=== PATIENT | female | born 1955 | race Two or more races ===

== ENCOUNTER 2018-01-26 16:24 | Emergency (ER) | payer MEDICAID ==
[~2018-01-26] VITALS: Ht 154.9 cm; Wt 68.0 kg
[~2018-01-26 16:24] MED LIST: CLIN1CAP4 PO; FER325T PO; LISI-646 PO; SACC250C PO
[2018-01-26] MEDS ORDERED: LIDOCAINE 1% HCL (LOCAL ANESTH.) INJ 20ML MDV ID ONE (19:15)
[2018-01-26] MEDS ORDERED: TRIAMCINOLONE 40MG/ML 1ML VIAL IM ONE (19:15)
[2018-01-26] MEDS ORDERED: HYDROcodone-ACET 10/325MG TAB PO ONE (19:45)
[2018-01-26 20:00] VITALS: BP 146/81
== END 2018-01-26 20:06 | disposition home or self-care (01) ==
LOC: ER 16:36
DX: M54.2 Cervicalgia (principal); M79.1 Myalgia; I10 Essential (primary) hypertension; I25.2 Old myocardial infarction; F17.210 Nicotine dependence, cigarettes, uncomplicated; Z86.73 Personal history of transient ischemic attack (TIA), and cerebral infarction without residual deficits; Z90.49 Acquired absence of other specified parts of digestive tract; Z90.710 Acquired absence of both cervix and uterus; Z88.2 Allergy status to sulfonamides; Z79.899 Other long term (current) drug therapy
CPT/HCPCS: 96372; 99283; J2001; J3301

== ENCOUNTER 2018-01-31 09:45 | Emergency (ER) | payer MEDICAID ==
[~2018-01-31] VITALS: Ht 154.9 cm; Wt 61.2 kg
[2018-01-31 09:54] VITALS: BP 192/97
[2018-01-31] MEDS ORDERED: IBUPROFEN 800 MG TAB PO ONE (10:45)
[2018-01-31] MEDS ORDERED: LIDOCAINE 1% (LOCAL ANESTH.) PF 5ml SDV ONE (10:47)
[2018-01-31] MEDS ORDERED: TETANUS-DIPTH-ACEL PERTUSSIS 0.5ML SYRG IM ONE (11:00)
[2018-01-31] MEDS ORDERED: NEOMYCIN-BACITRACIN-POLYM UNITDOSE PKG TOP OINT TOP ONE (11:15)
== END 2018-01-31 12:27 | disposition home or self-care (01) ==
LOC: ER 09:47
DX: S61.512A Laceration without foreign body of left wrist, initial encounter (principal); W05.0XXA Fall from non-moving wheelchair, initial encounter; Y93.89 Activity, other specified; Y92.89 Other specified places as the place of occurrence of the external cause; Y99.8 Other external cause status
CPT/HCPCS: 12001; 73100; 90471; 90715

== ENCOUNTER 2018-02-14 14:39 | Emergency (ER) | payer MEDICAID ==
[~2018-02-14] VITALS: Ht 152.4 cm; Wt 49.9 kg
[2018-02-14 15:20] VITALS: BP 178/86
== END 2018-02-14 16:08 | disposition home or self-care (01) ==
LOC: ER 14:42
DX: S61.512D Laceration without foreign body of left wrist, subsequent encounter (principal); I10 Essential (primary) hypertension; F17.210 Nicotine dependence, cigarettes, uncomplicated; Z88.2 Allergy status to sulfonamides; Z79.899 Other long term (current) drug therapy; Z90.49 Acquired absence of other specified parts of digestive tract; X58.XXXD Exposure to other specified factors, subsequent encounter

== ENCOUNTER 2018-04-26 21:27 | Emergency (ER) | payer MEDICAID ==
[~2018-04-26] VITALS: Ht 154.9 cm; Wt 49.9 kg
[2018-04-26 22:44] LABS: Basophils # (auto) 0 uL; Basophils % (auto) 0.6 % (0.0-2.0); Eosinophils # (auto) 0.5 uL; Hematocrit 28.8 % (36.0-46.0); Hemoglobin 9.3 g/dL (12.2-16.2); Lymphocytes % (auto) 15.4 % (10.0-50.0); Mean Corpuscular Hemoglobin 27.1 pg (28.0-32.0); Mean Corpuscular Hgb Conc. 32.3 g/dL (32.0-36.0); Mean Corpuscular Volume 83.9 fL (80.0-100.0); Monocytes # (auto) 0.5 uL; Monocytes % (auto) 8.2 % (0.0-12.0); Neutrophils # (auto) 4.5 uL; Neutrophils % (auto) 68.8 % (37.0-80.0); Platelet Count (auto) 322 10^3/uL (140-450); Red Blood Cells 3.43 10^6/uL (4.0-5.20); Red Cell Distribution Width 15.5 % (11.8-14.3); White Blood Cell 6.5 10^3/uL (4.4-10.8)
[2018-04-26 22:50] LABS: Albumin 2.5 g/dL (3.4-5.0); BUN/Creatinine Ratio 20.6; Calcium 8.5 mg/dL (8.5-10.1); Potassium 3.5 mmol/L (3.5-5.1)
[2018-04-26 22:59] LABS: Bilirubin, Total 0.3 mg/dL (0.2-1.0); Total Protein 7.5 g/dL (6.4-8.2)
[2018-04-27] MEDS ORDERED: methylPREDNISolone SOD SUCC 125 MG/2 ML VL IM ONE (00:15)
[2018-04-27] MEDS ORDERED: MORPHINE SULFATE 4 MG/ML SYR/VIAL IM ONE (00:15)
[2018-04-27] MEDS ORDERED: ONDANSETRON HCL 4 MG/2 ML VIAL IM ONE (00:15)
[2018-04-27 00:56] VITALS: BP 189/125
== END 2018-04-27 09:42 | disposition home or self-care (01) ==
LOC: ER 21:30
DX: L30.9 Dermatitis, unspecified (principal); M19.90 Unspecified osteoarthritis, unspecified site; I10 Essential (primary) hypertension; F17.210 Nicotine dependence, cigarettes, uncomplicated; Z90.49 Acquired absence of other specified parts of digestive tract; Z88.2 Allergy status to sulfonamides; Z79.899 Other long term (current) drug therapy; Z90.710 Acquired absence of both cervix and uterus
CPT/HCPCS: 36415; 80053; 83880; 85025; 96372; 99284; J2270; J2405; J2930

== ENCOUNTER 2018-08-10 22:04 | Emergency (ER) | payer MEDICAID ==
[~2018-08-10] VITALS: Ht 152.4 cm; Wt 49.9 kg
[2018-08-10 22:25] VITALS: BP 152/63
[2018-08-10 23:10] LABS: Basophils # (auto) 0 uL; Basophils % (auto) 0.5 % (0.0-2.0); Eosinophils # (auto) 0.2 uL; Mean Corpuscular Hemoglobin 21.4 pg (28.0-32.0); Monocytes # (auto) 0.6 uL; Neutrophils # (auto) 7.4 uL
[2018-08-10 23:12] LABS: Eosinophils % (auto) 1.9 % (0.0-7.0); Hematocrit 23.4 % (36.0-46.0); Hemoglobin 7.1 g/dL (12.2-16.2); Lymphocytes # (auto) 1.2 uL; Lymphocytes % (auto) 13.1 % (10.0-50.0); Mean Corpuscular Hgb Conc. 30.4 g/dL (32.0-36.0); Mean Corpuscular Volume 70.5 fL (80.0-100.0); Monocytes % (auto) 6.5 % (0.0-12.0); Nucleated Red Blood Cells % 0.1 %; Platelet Count (auto) 405 10^3/uL (140-450); Red Blood Cells 3.32 10^6/uL (4.0-5.20); Red Cell Distribution Width 18.6 % (11.8-14.3); White Blood Cell 9.4 10^3/uL (4.4-10.8)
[2018-08-10 23:25] LABS: INR 0.99 (0.9-1.15); Partial Thromboplastin Time 30.6 sec (23.78-33.04); Prothrombin Time 10.6 sec (9.27-12.13)
[2018-08-10 23:28] LABS: Alanine Aminotransferase 7 U/L (13-56); Albumin 2.3 g/dL (3.4-5.0); Anion Gap 9 (5-15); Aspartate Aminotransferase 6 U/L (15-37); BUN/Creatinine Ratio 15.3; Blood Urea Nitrogen 15 mg/dL (7-18); Calcium 8.1 mg/dL (8.5-10.1); Carbon Dioxide 24 mmol/L (21-32); Chloride 106 mmol/L (98-107); GFR African American 73 mL/min; GFR Non-African American 61 mL/min; Glucose 123 mg/dL (74-106); Magnesium 2.2 mg/dL (1.6-2.6); Potassium 3.3 mmol/L (3.5-5.1); Sodium 139 mmol/L (136-145)
[2018-08-10 23:32] LABS: Alkaline Phosphatase 139 U/L (45-117); Bilirubin, Total 0.2 mg/dL (0.2-1.0); Total Protein 8.2 g/dL (6.4-8.2)
== END 2018-08-11 06:20 | disposition left against medical advice (07) ==
LOC: ER 22:16
DX: R07.9 Chest pain, unspecified (principal); M54.9 Dorsalgia, unspecified; Z53.21 Procedure and treatment not carried out due to patient leaving prior to being seen by health care provider
CPT/HCPCS: 36415; 71045; 80053; 83735; 83880; 84443; 84484; 85025; 85610; 85730; 93005

== ENCOUNTER 2019-01-17 21:40 | Emergency (ER) | payer MEDICAID ==
[~2019-01-17] VITALS: Ht 152.4 cm; Wt 49.9 kg
[~2019-01-17 21:40] MED LIST changes: -CLIN1CAP4 PO; +CLIN300C8 PO; +DOCU100C8 PO; +LEVO500T21 PO; +PANT40T PO; -SACC250C PO
[2019-01-17] MEDS ORDERED: cloNIDine HCL 0.1 MG TAB ONE (22:20)
[2019-01-17] MEDS ORDERED: cloNIDine HCL 0.1 MG TAB PO ONE (22:30)
[2019-01-18 01:02] VITALS: BP 145/55
== END 2019-01-18 02:57 | disposition left against medical advice (07) ==
LOC: ER 21:43
DX: M25.531 Pain in right wrist (principal); M79.631 Pain in right forearm; Z53.21 Procedure and treatment not carried out due to patient leaving prior to being seen by health care provider; W01.0XXA Fall on same level from slipping, tripping and stumbling without subsequent striking against object, initial encounter; Y93.89 Activity, other specified; Y92.89 Other specified places as the place of occurrence of the external cause; Y99.8 Other external cause status
CPT/HCPCS: 73090; 73110; 73130

== ENCOUNTER 2019-02-02 22:03 | Emergency (ER) | payer MEDICAID ==
[~2019-02-02] VITALS: Ht 152.4 cm; Wt 49.9 kg
[2019-02-02] MEDS ORDERED: cloNIDine HCL 0.1 MG TAB ONE (22:55)
[2019-02-02] MEDS ORDERED: cloNIDine HCL 0.1 MG TAB PO ONE (23:00)
[2019-02-03 03:14] VITALS: BP 114/52
[2019-02-07] MEDS ORDERED: CHOL20007 PO (00:23)
[2019-02-07] MEDS ORDERED: ASPIPOW PO (00:23)
[2019-02-07] MEDS ORDERED: CYA100I PO (00:23)
[2019-02-07] MEDS ORDERED: IBUP800T24 PO (00:23)
[2019-02-08] MEDS ORDERED: NITR0.4S29 SL (14:29)
[2019-02-08] MEDS ORDERED: DOCU-94 PO (14:29)
[2019-02-08] MEDS ORDERED: HYDR-4833 PO (14:29)
[2019-02-08] MEDS ORDERED: LISI10TA6 PO (14:29)
== END 2019-02-03 05:05 | disposition home or self-care (01) ==
LOC: ER 22:03
DX: S06.0X0A Concussion without loss of consciousness, initial encounter (principal); S16.1XXA Strain of muscle, fascia and tendon at neck level, initial encounter; I10 Essential (primary) hypertension; I25.2 Old myocardial infarction; Z86.73 Personal history of transient ischemic attack (TIA), and cerebral infarction without residual deficits; Z90.49 Acquired absence of other specified parts of digestive tract; Z90.710 Acquired absence of both cervix and uterus; F17.210 Nicotine dependence, cigarettes, uncomplicated; Z88.2 Allergy status to sulfonamides; Z79.2 Long term (current) use of antibiotics; Z79.899 Other long term (current) drug therapy; W05.0XXA Fall from non-moving wheelchair, initial encounter; Y93.89 Activity, other specified; Y92.89 Other specified places as the place of occurrence of the external cause; Y99.8 Other external cause status
CPT/HCPCS: 70450; 72125

== ENCOUNTER → 2019-03-15 | Outpatient (CLI) | payer MEDICAID ==
[~2019-03-15] MED LIST changes: +AML5T PO; +CHOL20007 PO; -CLIN300C8 PO; +CYA100I PO; +DOCU-94 PO; -DOCU100C8 PO; -FER325T PO; +HYDR-4833 PO; +IBUP800T24 PO; -LEVO500T21 PO; +NITR0.4S29 SL; -PANT40T PO
== END | disposition home or self-care (01) ==
LOC: Rad HDHVI 10:28
PROVIDERS: ATTEND Internal Medicine
DX: I25.10 Atherosclerotic heart disease of native coronary artery without angina pectoris (principal); I25.2 Old myocardial infarction
CPT/HCPCS: 93306

== ENCOUNTER → 2019-03-29 | Outpatient (CLI) | payer MEDICAID ==
[~2019-03-29] VITALS: Ht 152.4 cm; Wt 43.5 kg
[~2019-03-29] MED LIST changes: +ADENOSINE 37 MG in GIVE UN-DILUTED 0 ML IV ONE; +ADENOSINE 90 MG/30 ML INJ IV ONE; +cloNIDine HCL 0.1 MG TAB ONE
== END | disposition home or self-care (01) ==
LOC: Rad HDHVI 08:28
PROVIDERS: ATTEND Internal Medicine
DX: I25.10 Atherosclerotic heart disease of native coronary artery without angina pectoris (principal); R07.89 Other chest pain; M20.5X9 Other deformities of toe(s) (acquired), unspecified foot; I25.2 Old myocardial infarction; K29.70 Gastritis, unspecified, without bleeding; M19.90 Unspecified osteoarthritis, unspecified site
CPT/HCPCS: 78452; 93005; 96374; 96375; A9500; J0153

== ENCOUNTER 2020-01-23 14:14 | Emergency (ER) | payer MEDICARE, MEDICAID ==
[~2020-01-23] VITALS: Ht 152.4 cm; Wt 41.7 kg
[~2020-01-23 14:14] MED LIST changes: -ADENOSINE 37 MG in GIVE UN-DILUTED 0 ML IV ONE; -ADENOSINE 90 MG/30 ML INJ IV ONE; -cloNIDine HCL 0.1 MG TAB ONE
[2020-01-23 14:49] LABS: Basophils # (auto) 0.1 10 ^3/uL (0-0.2); Eosinophils # (auto) 0.4 10 ^3/uL (0-0.8); Lymphocytes # (auto) 1.3 10 ^3/uL (0.4-5.4); Monocytes # (auto) 0.3 10 ^3/uL (0-1.3)
[2020-01-23 14:51] LABS: Basophils % (auto) 1.4 % (0.0-2.0); Eosinophils % (auto) 7.8 % (0.0-7.0); Hemoglobin 8.5 g/dL (12.2-16.2); Lymphocytes % (auto) 26.8 % (10.0-50.0); Mean Corpuscular Hemoglobin 25.1 pg (28.0-32.0); Mean Corpuscular Hgb Conc. 31.5 g/dL (32.0-36.0); Mean Corpuscular Volume 79.6 fL (80.0-100.0); Monocytes % (auto) 6.5 % (0.0-12.0); Neutrophils # (auto) 2.9 10 ^3/uL (1.6-8.6); Neutrophils % (auto) 57.5 % (37.0-80.0); Platelet Count (auto) 332 10^3/uL (140-450); Red Cell Distribution Width 18.4 % (11.8-14.3)
[2020-01-23 15:07] LABS: Albumin 2.9 g/dL (3.4-5.0); Anion Gap 3 (5-15); BUN/Creatinine Ratio 14.1; Blood Urea Nitrogen 12 mg/dL (7-18); Calcium 8.4 mg/dL (8.5-10.1); Carbon Dioxide 26 mmol/L (21-32); Chloride 111 mmol/L (98-107); GFR African American 86 mL/min; GFR Non-African American 71 mL/min; Glucose 111 mg/dL (74-106); Potassium 3.8 mmol/L (3.5-5.1); Sodium 140 mmol/L (136-145)
[2020-01-23 15:12] LABS: Alanine Aminotransferase 14 U/L (13-56); Alkaline Phosphatase 94 U/L (45-117); Aspartate Aminotransferase 7 U/L (15-37); Bilirubin, Total 0.3 mg/dL (0.2-1.0)
[2020-01-23 16:15] VITALS: BP 130/60
== END 2020-01-23 16:36 | disposition home or self-care (01) ==
LOC: ER 14:14
DX: G45.9 Transient cerebral ischemic attack, unspecified (principal); E44.0 Moderate protein-calorie malnutrition; F12.90 Cannabis use, unspecified, uncomplicated; D64.9 Anemia, unspecified; M19.90 Unspecified osteoarthritis, unspecified site; I10 Essential (primary) hypertension; I25.2 Old myocardial infarction; F17.210 Nicotine dependence, cigarettes, uncomplicated
CPT/HCPCS: 36415; 70450; 80053; 84484; 85025

== ENCOUNTER 2020-09-24 20:28 | Emergency (ER) | payer MEDICARE, MEDICAID ==
[~2020-09-24] VITALS: Ht 152.4 cm; Wt 41.7 kg
[~2020-09-24 20:28] MED LIST changes: -IBUP800T24 PO; +IBUP800T27 PO; -LISI-646 PO; +LISI20TA28 PO
[2020-09-25 00:20] VITALS: BP 145/63
[2020-09-25] MEDS ORDERED: ACETAMINOPHEN/CODEINE#3 (300/30mg) TAB PO ONE (00:45)
== END 2020-09-25 01:01 | disposition home or self-care (01) ==
LOC: ER 20:33
DX: S93.401A Sprain of unspecified ligament of right ankle, initial encounter (principal); F17.210 Nicotine dependence, cigarettes, uncomplicated; F12.10 Cannabis abuse, uncomplicated; M19.90 Unspecified osteoarthritis, unspecified site; I10 Essential (primary) hypertension; I25.2 Old myocardial infarction; Z86.2 Personal history of diseases of the blood and blood-forming organs and certain disorders involving the immune mechanism; Z86.73 Personal history of transient ischemic attack (TIA), and cerebral infarction without residual deficits; M79.7 Fibromyalgia; Z79.899 Other long term (current) drug therapy; Z88.2 Allergy status to sulfonamides; W18.09XA Striking against other object with subsequent fall, initial encounter; Y93.01 Activity, walking, marching and hiking; Y92.89 Other specified places as the place of occurrence of the external cause; Y99.8 Other external cause status
CPT/HCPCS: 73610; 73630

== ENCOUNTER 2023-05-08 04:53 | Inpatient (IN) | payer OTHER, MEDICAID ==
[~2023-05-08] VITALS: Ht 152.4 cm; Wt 59.2 kg
[~2023-05-08 04:53] MED LIST changes: +IBUP-1456 PO; -IBUP800T27 PO; -LISI20TA28 PO; +LISI20TA56 PO
[2023-05-08 05:35] VITALS: PULSE 80; RESP 17; O2SAT 97
[2023-05-08 07:09] LABS: Basophils # (auto) 0 10 ^3/uL (0-0.2); Basophils % (auto) 0.3 % (0.0-2.0); Eosinophils # (auto) 0.5 10 ^3/uL (0-0.8); Eosinophils % (auto) 8.3 % (0.0-7.0); Hemoglobin 11.8 g/dL (12.2-16.2); Lymphocytes # (auto) 0.7 10 ^3/uL (0.4-5.4); Lymphocytes % (auto) 11.5 % (10.0-50.0); Mean Corpuscular Hemoglobin 30.5 pg (28.0-32.0); Mean Corpuscular Volume 98.4 fL (80.0-100.0); Monocytes # (auto) 0.4 10 ^3/uL (0-1.3); Monocytes % (auto) 6.3 % (0.0-12.0); Neutrophils # (auto) 4.7 10 ^3/uL (1.6-8.6); Neutrophils % (auto) 73.6 % (37.0-80.0); Nucleated Red Blood Cells % 0.1 %; Red Blood Cells 3.87 10^6/uL (4.0-5.20); Red Cell Distribution Width 14.8 % (11.8-14.3); White Blood Cell 6.4 10^3/uL (4.4-10.8)
[2023-05-08 07:28] LABS: Albumin 3.6 g/dL (3.2-4.8); Alkaline Phosphatase 135 U/L (46-116); Anion Gap 7 (5-15); Aspartate Aminotransferase 14 U/L (13-40); BUN/Creatinine Ratio 14.3 (10.0-20.0); Bilirubin, Total 0.2 mg/dL (0.2-1.0); Blood Urea Nitrogen 11 mg/dL (9-23); Calcium 8.5 mg/dL (8.7-10.4); Carbon Dioxide 21 mmol/L (20-30); Chloride 113 mmol/L (98-107); Glucose 112 mg/dL (74-106); Potassium 4.2 mmol/L (3.5-5.1); Sodium 141 mmol/L (136-145); Total Protein 6.7 g/dL (5.7-8.2)
[2023-05-08 07:45] LABS: Alanine Aminotransferase < 9 U/L (7-40)
[2023-05-08] MEDS ORDERED: MORPHINE SULFATE INJ 2 MG/ml SYRG IV ONE ×2 (10:30→15:45)
[2023-05-08] MEDS ORDERED: ONDANSETRON HCL 4 MG/2 ML VIAL IV ONE ×2 (10:30→15:45)
[2023-05-08] MEDS ORDERED: IOHEXOL 300 MG/ML 100ML BOTTLE IJ ONE ×2 (11:49→13:46)
[2023-05-08 19:40] VITALS: PULSE 79; RESP 18; O2SAT 94
[2023-05-08] MEDS ORDERED: ACETAMINOPHEN 325 MG TAB PO PRN (20:45)
[2023-05-08] MEDS: SODIUM CHLOR 0.9% PF (SALINE LOCK) 10ML VIAL/SYR IV SCH (22:07)
[2023-05-08] MEDS ORDERED: diphenhdrAMINE HCL 12.5 MG/5 ML UD PO ONE (22:30)
[2023-05-08] MEDS: MORPHINE SULFATE INJ 2 MG/ml SYRG IV PRN (23:09)
[2023-05-08] MEDS: ONDANSETRON HCL 4 MG/2 ML VIAL IV PRN (23:11)
[2023-05-08] MEDS ORDERED: MORPHINE SULFATE INJ 2 MG/ml SYRG IV PRN (23:15)
[2023-05-08] MEDS ORDERED: NITROGLYCERIN 0.4 MG SL TAB SL PRN (23:15)
[2023-05-09] MEDS: SODIUM CHLOR 0.9% PF (SALINE LOCK) 10ML VIAL/SYR IV SCH ×3 (06:17→23:04)
[2023-05-09 06:23] LABS: Basophils # (auto) 0 10 ^3/uL (0-0.2); Basophils % (auto) 0.7 % (0.0-2.0); Eosinophils # (auto) 0.8 10 ^3/uL (0-0.8); Eosinophils % (auto) 14.5 % (0.0-7.0); Hematocrit 34.9 % (36.0-46.0); Hemoglobin 11.8 g/dL (12.2-16.2); Lymphocytes # (auto) 1.1 10 ^3/uL (0.4-5.4); Lymphocytes % (auto) 19.3 % (10.0-50.0); Mean Corpuscular Hemoglobin 31.3 pg (28.0-32.0); Mean Corpuscular Hgb Conc. 33.7 g/dL (32.0-36.0); Mean Corpuscular Volume 92.8 fL (80.0-100.0); Monocytes # (auto) 0.5 10 ^3/uL (0-1.3); Monocytes % (auto) 9.2 % (0.0-12.0); Neutrophils # (auto) 3.3 10 ^3/uL (1.6-8.6); Neutrophils % (auto) 56.3 % (37.0-80.0); Red Blood Cells 3.77 10^6/uL (4.0-5.20); White Blood Cell 5.9 10^3/uL (4.4-10.8)
[2023-05-09 06:37] LABS: Albumin 3.6 g/dL (3.2-4.8); Alkaline Phosphatase 131 U/L (46-116); Anion Gap 5 (5-15); Aspartate Aminotransferase 12 U/L (13-40); BUN/Creatinine Ratio 12.5 (10.0-20.0); Blood Urea Nitrogen 11 mg/dL (9-23); Calcium 8.8 mg/dL (8.7-10.4); Carbon Dioxide 26 mmol/L (20-30); Chloride 110 mmol/L (98-107); Glucose 97 mg/dL (74-106); Potassium 4.1 mmol/L (3.5-5.1); Sodium 141 mmol/L (136-145)
[2023-05-09 06:38] LABS: Bilirubin, Total 0.4 mg/dL (0.2-1.0); Total Protein 6.6 g/dL (5.7-8.2)
[2023-05-09 07:02] LABS: Alanine Aminotransferase < 9 U/L (7-40)
[2023-05-09 08:35] VITALS: PULSE 56; RESP 10; O2SAT 98
[2023-05-09] MEDS ORDERED: amLODIPine BESYLATE 5 MG TAB PO SCH (10:00)
[2023-05-09] MEDS: MORPHINE SULFATE INJ 2 MG/ml SYRG IV PRN ×3 (11:10→20:43)
[2023-05-09] MEDS ORDERED: methylPREDNISolone SOD SUCC 125 MG/2 ML VL IV ONE (12:30)
[2023-05-09 19:20] VITALS: PULSE 82; RESP 14; O2SAT 97
[2023-05-09] MEDS: ONDANSETRON HCL 4 MG/2 ML VIAL IV PRN (20:43)
[2023-05-09 21:45] VITALS: PULSE 71
[2023-05-09] MEDS: TRIAMCINOLONE ACET 0.1% TOPICAL CREAM 15GM TOP SCH (22:00)
[2023-05-09 22:50] VITALS: BP 123/61; PULSE 70; RESP 16; TEMP 97.4; O2SAT 96
[2023-05-09] MEDS: HYDROcodone-ACET 5/325MG TAB PO PRN (23:11)
[2023-05-09 23:24] VITALS: BP 123/61; PULSE 70; RESP 16; TEMP 97.4; O2SAT 96
[2023-05-10] VITALS (7 sets, daily range): BP systolic 120–155; BP diastolic 45–75; PULSE 65–103; RESP 15–18; TEMP 98–98.4; O2SAT 92–98
[2023-05-10] MEDS: diphenhdrAMINE HCL 50 MG/1 ML VL IV PRN ×3 (00:59→21:36)
[2023-05-10] MEDS ORDERED: ENOXAPARIN SOD 40 MG/0.4 ML SYRINGE SC ONE (01:15)
[2023-05-10] MEDS ORDERED: MELATONIN 5 MG TAB ONE (01:27)
[2023-05-10] MEDS: SODIUM CHLOR 0.9% PF (SALINE LOCK) 10ML VIAL/SYR IV SCH ×3 (06:09→21:36)
[2023-05-10] MEDS: TRIAMCINOLONE ACET 0.1% TOPICAL CREAM 15GM TOP SCH ×2 (10:00→21:23)
[2023-05-10] MEDS ORDERED: ENOXAPARIN SOD 40 MG/0.4 ML SYRINGE SC SCH (10:00)
[2023-05-10] MEDS: NIFEdipine ER 30 MG TAB PO SCH (10:07)
[2023-05-10] MEDS: LISINOPRIL 10 MG TAB PO SCH (10:07)
[2023-05-10] MEDS: MORPHINE SULFATE INJ 2 MG/ml SYRG IV PRN ×2 (10:08→18:16)
[2023-05-10] MEDS: hydrALAZINE HCL 20 MG/ML VL IV PRN (14:01)
[2023-05-10] MEDS: HYDROcodone-ACET 5/325MG TAB PO PRN (21:22)
[2023-05-10] MEDS: ENOXAPARIN SOD 40 MG/0.4 ML SYRINGE SC SCH (21:23)
[2023-05-10] MEDS ORDERED: MELATONIN 5 MG TAB PO ONE (22:00)
[2023-05-11] VITALS (7 sets, daily range): BP systolic 137–155; BP diastolic 43–74; PULSE 68–97; RESP 17–21; TEMP 97.6–97.9; O2SAT 97–99
[2023-05-11] MEDS: SODIUM CHLOR 0.9% PF (SALINE LOCK) 10ML VIAL/SYR IV SCH ×3 (06:08→21:58)
[2023-05-11 08:07] LABS: AFP Serum Tumor Marker 2.9 ng/mL (0.0-9.2); Cancer Antigen (CA) 125 10.8 U/mL (0.0-38.1)
[2023-05-11] MEDS: HYDROcodone-ACET 5/325MG TAB PO PRN (10:03)
[2023-05-11] MEDS: NIFEdipine ER 30 MG TAB PO SCH (10:03)
[2023-05-11] MEDS: LISINOPRIL 10 MG TAB PO SCH (10:04)
[2023-05-11] MEDS: TRIAMCINOLONE ACET 0.1% TOPICAL CREAM 15GM TOP SCH ×2 (10:04→22:00)
[2023-05-11] MEDS ORDERED: GADOTERATE MEG 10 MMOL/20ml INJ (0.5MMOL/ml) IV ONE (13:30)
[2023-05-11] MEDS: MORPHINE SULFATE INJ 2 MG/ml SYRG IV PRN ×2 (17:25→21:59)
[2023-05-11] MEDS: ENOXAPARIN SOD 40 MG/0.4 ML SYRINGE SC SCH (22:00)
[2023-05-12] VITALS (7 sets, daily range): BP systolic 113–151; BP diastolic 47–107; PULSE 68–88; RESP 16–20; TEMP 97.6–98.4; O2SAT 96–98
[2023-05-12] MEDS: HYDROcodone-ACET 5/325MG TAB PO PRN ×4 (00:15→23:29)
[2023-05-12] MEDS: diphenhdrAMINE HCL 50 MG/1 ML VL IV PRN (01:13)
[2023-05-12] MEDS: MORPHINE SULFATE INJ 2 MG/ml SYRG IV PRN (05:48)
[2023-05-12] MEDS: SODIUM CHLOR 0.9% PF (SALINE LOCK) 10ML VIAL/SYR IV SCH ×3 (05:49→21:45)
[2023-05-12] MEDS: NIFEdipine ER 30 MG TAB PO SCH (09:03)
[2023-05-12] MEDS: LISINOPRIL 10 MG TAB PO SCH (09:03)
[2023-05-12] MEDS: TRIAMCINOLONE ACET 0.1% TOPICAL CREAM 15GM TOP SCH ×2 (10:00→21:45)
[2023-05-12] MEDS ORDERED: DOCUSATE SOD 100 MG CAP PO ONE (21:15)
[2023-05-12] MEDS ORDERED: TEMAZEPAM 15 MG CAP PO ONE (21:15)
[2023-05-12] MEDS: ENOXAPARIN SOD 40 MG/0.4 ML SYRINGE SC SCH (21:45)
[2023-05-13] VITALS (7 sets, daily range): BP systolic 126–162; BP diastolic 51–72; PULSE 65–81; RESP 16–19; TEMP 97.8–98.9; O2SAT 94–98
[2023-05-13] MEDS: SODIUM CHLOR 0.9% PF (SALINE LOCK) 10ML VIAL/SYR IV SCH ×3 (06:13→22:15)
[2023-05-13] MEDS: HYDROcodone-ACET 5/325MG TAB PO PRN ×4 (06:13→19:45)
[2023-05-13] MEDS: LISINOPRIL 10 MG TAB PO SCH (10:30)
[2023-05-13] MEDS: NIFEdipine ER 30 MG TAB PO SCH (10:30)
[2023-05-13] MEDS: TRIAMCINOLONE ACET 0.1% TOPICAL CREAM 15GM TOP SCH ×2 (10:36→22:14)
[2023-05-13] MEDS: ENOXAPARIN SOD 40 MG/0.4 ML SYRINGE SC SCH (22:00)
[2023-05-13] MEDS: diphenhdrAMINE HCL 50 MG/1 ML VL IV PRN (22:10)
[2023-05-13] MEDS: DOCUSATE SOD 100 MG CAP PO PRN (22:14)
[2023-05-14] VITALS (7 sets, daily range): BP systolic 148–181; BP diastolic 50–67; PULSE 65–93; RESP 18–19; TEMP 97.5–98.2; O2SAT 93–100
[2023-05-14] MEDS: HYDROcodone-ACET 5/325MG TAB PO PRN ×3 (00:21→09:53)
[2023-05-14] MEDS: hydrALAZINE HCL 20 MG/ML VL IV PRN (04:41)
[2023-05-14] MEDS: SODIUM CHLOR 0.9% PF (SALINE LOCK) 10ML VIAL/SYR IV SCH ×3 (07:33→22:23)
[2023-05-14] MEDS: NIFEdipine ER 30 MG TAB PO SCH (09:53)
[2023-05-14] MEDS: TRIAMCINOLONE ACET 0.1% TOPICAL CREAM 15GM TOP SCH ×2 (09:55→22:24)
[2023-05-14] MEDS: LISINOPRIL 10 MG TAB PO SCH (09:55)
[2023-05-14] MEDS ORDERED: HYDR-4902 PO (10:28)
[2023-05-14] MEDS: DOCUSATE SOD 100 MG CAP PO PRN (18:15)
[2023-05-14] MEDS: ENOXAPARIN SOD 40 MG/0.4 ML SYRINGE SC SCH (22:00)
[2023-05-15 05:00] VITALS: BP 149/67; PULSE 111; RESP 18; TEMP 99.2; O2SAT 96
[2023-05-15] MEDS: SODIUM CHLOR 0.9% PF (SALINE LOCK) 10ML VIAL/SYR IV SCH (05:18)
[2023-05-15 07:30] VITALS: BP 151/55; TEMP 37.3
[2023-05-15 09:00] VITALS: BP 156/74; PULSE 91; RESP 18; TEMP 98.7; O2SAT 96
[2023-05-15] MEDS: NIFEdipine ER 30 MG TAB PO SCH (10:42)
[2023-05-15] MEDS: TRIAMCINOLONE ACET 0.1% TOPICAL CREAM 15GM TOP SCH (10:43)
[2023-05-15] MEDS: LISINOPRIL 10 MG TAB PO SCH (10:43)
[2023-05-15] MEDS ORDERED: HYDR5CRE3 PR (13:13)
== END 2023-05-15 13:30 | disposition home or self-care (01) | DRG 948 ==
LOC: ER 04:53 → TELE 23:16 → TELE-CENTR 05-09 21:33 → CENTRAL 05-12 14:11
PROVIDERS: ADMIT Nurse Practitioner Family; ATTEND Internal Medicine
DX: G89.3 Neoplasm related pain (acute) (chronic) (principal); K43.9 Ventral hernia without obstruction or gangrene; K80.20 Calculus of gallbladder without cholecystitis without obstruction; K62.89 Other specified diseases of anus and rectum; K76.0 Fatty (change of) liver, not elsewhere classified; K44.9 Diaphragmatic hernia without obstruction or gangrene; I10 Essential (primary) hypertension; D64.9 Anemia, unspecified; M06.9 Rheumatoid arthritis, unspecified; L40.9 Psoriasis, unspecified; Z80.3 Family history of malignant neoplasm of breast; Z82.49 Family history of ischemic heart disease and other diseases of the circulatory system; Z82.5 Family history of asthma and other chronic lower respiratory diseases; Z83.3 Family history of diabetes mellitus; Z85.038 Personal history of other malignant neoplasm of large intestine; Z86.73 Personal history of transient ischemic attack (TIA), and cerebral infarction without residual deficits; Z87.19 Personal history of other diseases of the digestive system; Z88.2 Allergy status to sulfonamides; Z90.710 Acquired absence of both cervix and uterus; Z87.891 Personal history of nicotine dependence; Z80.0 Family history of malignant neoplasm of digestive organs; I25.2 Old myocardial infarction
CPT/HCPCS: 36415; 73723; 74177; 80053; 82105; 82378; 85025; 86301; 86304; 87081; 96374; 96375; 96376; G0378; J2405

== ENCOUNTER 2024-08-04 10:11 | Inpatient (IN) | payer MEDICARE, MEDICAID ==
[~2024-08-04] VITALS: Ht 152.4 cm; Wt 54.0 kg
[~2024-08-04 10:11] MED LIST changes: -CHOL20007 PO; -DOCU-94 PO; +HYDR-4902 PO; +HYDR5CRE3 PR; -IBUP-1456 PO
--- NOTE | 2024-08-04 10:33 | ED.PDOC ---
History of Present Illness HPI Comments 69 y/o F, with history of anemia, arthritis, HTN, MS, TIA, psoriasis, and right leg stent, [place], presents with c/o right leg pain for 4 months, today. Patient is a poor historian and endorses on pain being constant following a stent placement in her right leg 4 months ago. Patient has not no reported recent injuries or other additional relevant and pertinent information at time of assessment. She denies having any numbness, tingling, weakness, shortness of breath, chest pain, or other associated symptoms or modifiers at this time. Chief Complaint: Lower Extremity Time Seen by MD: 10:20 Primary Care Provider: UNKNOWN Reviewed Notes: Nurses Notes, Blind Hanger Notes, Medications, Allergies Allergies: Coded Allergies: Sulfa Antibiotics (Verified Allergy, Unknown, 08/10/18) Home Meds Active Scripts Hydrocortisone (Rectal) (Procto-Med Hc) 2.5 % Cre, 2.5 % UT Q6HPRN PRN, #28 GRAMS 5 Refills Prov:SCOTTIE AMAYA MD 05/15/23 Hydrocodone-Acetaminophen (Hydrocodone Bitartrate/AC 5-325 mg) 1 Tab Tab, 1 TAB PO Q4HP PRN, #30 TAB Prov:SCOTTIE AMAYA MD 05/14/23 Amlodipine Besylate (NORVASC TABLET) 5 Mg Tb, 10 MG PO DAILY, #30 Prov:NADIYA REICH MD 02/10/19 Lisinopril (Lisinopril) 20 Mg Tab, 1 TAB PO DAILY, #30 TAB 5 Refills Prov:NADIYA REICH MD 02/10/19 Reported Medications Nitroglycerin (Nitrostat) 0.4 Mg Sub, 0.4 MG SL 02/08/19 Hydrocodone-Acetaminophen ([place] 5/325MG) 1 Tab Tb, 1 TAB PO Q6HR, #60 TAB 02/08/19 Vitamin B12 (Vitamin B-12) 1,000 Mcg/1 Ml Ij, 1 TAB PO DAILY 02/07/19 Information Source: Patient, Emergency Med Personnel Mode of Arrival: EMS Severity: Moderate Timing: Months Duration: Since onset Prehospital treatment: None Past Medical History PAST MEDICAL HISTORY: Anemia, Arthritis, HTN, MS, TIA Past Medical History (Other): colon polyps, psoriasis Surgical History: Appendectomy, BTL, , Hernia Repair, Hysterectomy Surgical History (Other): RIGHT LEG STENT, rectal mass resection ICE CREAM CHEF History: No Pertinent ICE CREAM CHEF History Family History Family History: Unknown Social History Smoker: Cigarettes, Less Than 1 Pack/Day Alcohol: Denies ETOH Use Drugs: Marijuana Lives In: Home Constitutional: denies: chills, diaphoresis, fatigue, fever, malaise, sweats, weakness, others EENTM: denies: blurred vision, double vision, ear bleeding, ear discharge, ear drainage, ear pain, ear ringing, eye pain, eye redness, hearing loss, mouth pain, mouth swelling, nasal discharge, nose bleeding, nose congestion, nose pain, photophobia, tearing, throat pain, throat swelling, voice changes, others Respiratory: denies: cough, hemoptysis, orthopnea, SOB at rest, shortness of breath, SOB with excertion, stridor, wheezing, others Cardiovascular: denies: chest pain, dizzy spells, diaphoresis, Dyspnea on exertion, edema, irregular heart beat, left arm pain, lightheadedness, palpitations, PND, syncope, others Gastrointestinal: denies: abdomen distended, abdominal pain, blood streaked bowels, constipated, diarrhea, dysphagia, difficulty swallowing, hematemesis, melena, nausea, poor appetite, poor fluid intake, rectal bleeding, rectal pain, vomiting, others Genitourinary: denies: abnormal vagina bleeding, burning, dyspareunia, dysuria, flank pain, frequency, hematuria, incontinence, pain, , vagina discharge, urgency, others Neurological: denies: dizziness, fainting, headache, left sided numbness, left sided weakness, numbness, paresthesia, pre-existing deficit, right sided n umbness, right sided weakness, seizure, speech problems, tingling, tremors, weakness, others Musculoskeletal: reports: others (right thigh pain ); denies: back pain, gout, joint pain, joint swelling, muscle pain, muscle stiffness, neck pain Integumetry: reports: rash; denies: bruises, change in color, change in hair/nails, dryness, laceration, lesions, lumps, wounds, others Allergic/Immunocompromised: denies: Difficulty Healing, Frequent Infections, Hives, Itching, others Hematologic/Lymphatic: denies: anemia, blood clots, easy bleeding, easy bruising, swollen glands, others Endocrine: denies: excessive hunger, excessive sweating, excessive thirst, excessive urination, flushing, intolerance to cold, intolerance to heat, unexplained weight gain, unexplained weight loss, others Psychiatric: denies: anxiety, bipolar disorder, depression, hopeless, panic disorder, schizophrenia, sleepless, suicidal, others All Other Systems: Reviewed and Negative (negative unless otherwise stated above or in HPI) Physical Exam General Appearance: No Apparent Distress, Normal HEENT: Normal ENT Inspection, Pharynx Normal, TMs Normal Neck: Full Range of Motion, Non-Tender, Normal, Normal Inspection Respiratory: Chest Non-Tender, Lungs Clear, No Accessory Muscle Use, No Respiratory Distress, Normal Breath Sounds Cardiovascular: No Edema, No JVD, No Murmur, No Gallop, Normal Peripheral Pulses, Regular Rate/Rhythm Breast Exam: Deferred Gastrointestinal: No Organomegaly, Non Tender, No Pulsatile Mass, Normal Bowel Sounds, Soft, Other (guaiac positive) Genitalia: Deferred Pelvic: Deferred Rectal: Deferred Extremities: No calf tenderness, Normal capillary refill, Normal inspection, Normal range of motion, No pedal edema, Tender (right anterior thigh ) Musculoskeletal : Apperance: Normal Neurologic: Alert, 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 no redness, no swelling, no discharge), Warm Lymphatic: No Adenopathy Was a procedure done? Was a procedure done?: No Differential Dx Considerations may include: cellulitis, post-op complication, DDD, dermatitis, musculoskeletal, DVT, claudication, PAD, neuropathy GIB, malignancy, marrow failure, sequestration related anemia X-Ray, Labs, Meds, VS Vital Signs Date Time Temp Pulse Resp B/P (MAP) Pulse Ox O2 Delivery O2 Flow Rate FiO2 08/04/24 10:19 97.9 90 20 171/84 (113) 96 Lab Test 08/04/24 10:44 Range/Units White Blood Count 4.0 L 4.4-10.8 10^3/uL Red Blood Count 2.99 L 4.0-5.20 10^6/uL Hemoglobin 6.9 *L 12.2-16.2 g/dL Hematocrit 22.3 L 36.0-46.0 % Mean Corpuscular Volume 74.4 L 80.0-100.0 fL Mean Corpuscular Hemoglobin 23.1 L 28.0-32.0 pg Mean Corpuscular Hemoglobin Concent 31.0 L 32.0-36.0 g/dL Red Cell Distribution Width 18.3 H 11.8-14.3 % Platelet Count 390 140-450 10^3/uL Mean Platelet Volume 8.8 6.9-10.8 fL Neutrophils (%) (Auto) 37.0-80.0 % Lymphocytes (%) (Auto) 10.0-50.0 % Monocytes (%) (Auto) 0.0-12.0 % Eosinophils (%) (Auto) 0.0-7.0 % Basophils (%) (Auto) 0.0-2.0 % Neutrophils # (Auto) 1.6-8.6 10 ^3/uL Lymphocytes # (Auto) 0.4-5.4 10 ^3/uL Monocytes # (Auto) 0-1.3 10 ^3/uL Differential Total Cells Counted 100.0 100 Neutrophils % (Manual) 67 37.0-80.0 Band Neutrophils % (Manual) 0 Lymphocytes % (Manual) 22 10.0-50.0 Monocytes % (Manual) 2 0-12 Eosinophils % (Manual) 9 H 0-7 Basophils % (Manual) 0 0.0-2.0 Metamyelocytes % (manual) 0 Myelocytes % (Manual) 0 Promyelocytes % (Manual) 0 Blast Cells % (Manual) 0 Reactive Lymphocytes 0 Platelet Estimate Adequate Hypochromasia (manual) Slight Anisocytosis (manual) Slight Microcytosis Slight Ovalocytes Few Sodium Level 138 136-145 mmol/L Potassium Level 4.1 3.5-5.1 mmol/L Chloride Level 110 H 98-107 mmol/L Carbon Dioxide Level 23 20-31 mmol/L Anion Gap 5 5-15 Blood Urea Nitrogen 19 9-23 mg/dL Creatinine 0.77 0.550-1.02 mg/dL Glomerular Filtration Rate Calc 83 >90 mL/min BUN/Creatinine Ratio 24.7 H 10.0-20.0 Serum Glucose 106 74-106 mg/dL Calcium Level 9.2 8.7-10.4 mg/dL Time of 1ST Reevaluation: 10:50 Reevaluation 1ST: Unchanged Patient Education/Counseling: Diagnosis, Treatment, Prognosis, Need For Follow Up Family Education/Counseling: No Family Present Additional Information Reviewed previous visits on 05/08/2023 and 09/24/20. Also reviewed hospital admission discharge summary on 05/15/23. Ordered the following: Ultrasound of the right lower extremity, BNP, CBC Additional information provided by: EMS Reviewed the following imaging reports and concur with findings: Ultrasound of the right lower extremity pt is severely anemic, with a history of colon polyps or rectal mass. pt is guaiac positive. she will be admitted for transfusion and further workups. pt also has evidence of advanced PAD, with claudication. the anemia likely contribute to the worsening of symptoms. Departure 1 Departure Time of Disposition: 13:04 Impression: Primary Impression: PAD (peripheral artery disease) Additional Impressions: Claudication LGI bleed Anemia Qualified Codes: D50.9 - Iron deficiency anemia, unspecified Psoriasis Disposition: ADMITTED INPATIENT Admit to: Med Surg Condition: Serious Critical Care Note Critical Care Time?: Yes (55 min-critical care time only) Critical care comment: due to concerns for deterioration of patient's condition, the care required my highest level of attention and readiness. i assessed the patient's condition, reviewed relavent documents, communicated with medical personnel, ordered the proper tests and treatments, reassessed for results and response to treatments, spoke to family and consultants and formulated a plan of care Stability Stability form required: No Heart Score Heart Score: Heart Score Response (Comments) Value History N/A 0 EKG N/A 0 Age N/A 0 Risk Factors N/A 0 Troponin N/A 0 Total 0 I personally scribed for DESHAWN VEE MD ([email or web address]) on 08/04/24 at 10:33. Electronically submitted by Prasanna Maloney ([email or web address]). I personally scribed for DESHAWN VEE MD ([email or web address]) on 08/04/24 at 10:41. Electronically submitted by Prasanna Maloney ([email or web address]). DESHAWN VEE MD Aug 04, 2024 10:33
[2024-08-04 11:04] LABS: Potassium 4.1 mmol/L (3.5-5.1); Sodium 138 mmol/L (136-145)
[2024-08-04 11:05] LABS: Anion Gap 5 (5-15); Calcium 9.2 mg/dL (8.7-10.4); Carbon Dioxide 23 mmol/L (20-31); Chloride 110 mmol/L (98-107)
[2024-08-04 11:10] LABS: BUN/Creatinine Ratio 24.7 (10.0-20.0); Blood Urea Nitrogen 19 mg/dL (9-23); Glucose 106 mg/dL (74-106)
--- NOTE | 2024-08-04 11:32 | DVH ---
Right Lower Extremity Arterial Duplex Clinical History: R/O ARTERIAL OCCLUSION Comparison: None Technique: Duplex Doppler evaluation including color Doppler and spectral/pulsed waveform analysis of the lower extremity arteries was performed. 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 IMPRESSION: Greater than 75% stenosis of the right mid superficial femoral artery based on peak systolic velocity criteria. Nonvisualization of flow in the right posterior tibial artery. REFERENCE VALUES, [facility] ([facility]) vascular Imaging Lab Criteria: Peak systolic velocity ranges (in cm/sec) are as follows: <150 cm/s - <20 % stenosis 150-200 cm/s - 20-49% stenosis 200-300 cm/s - 50-75% stenosis >300 cm/s -> 75% stenosis
[2024-08-04 11:48] LABS: Hematocrit 22.3 % (36.0-46.0); Mean Corpuscular Hemoglobin 23.1 pg (28.0-32.0); Mean Corpuscular Volume 74.4 fL (80.0-100.0)
[2024-08-04 11:50] LABS: Platelet Count (auto) 390 10^3/uL (140-450); Red Blood Cells 2.99 10^6/uL (4.0-5.20); Red Cell Distribution Width 18.3 % (11.8-14.3)
[2024-08-04 11:56] LABS: Hemoglobin 6.9 g/dL (12.2-16.2)
[2024-08-04 11:57] LABS: Band Neutrophils % (manual) 0; Basophils % (manual) 0 (0.0-2.0); Blast Cells 0; Metamyelocytes % 0; Myelocytes % 0; Promyelocytes % 0; Reactive Lymphocytes 0
[2024-08-04 12:18] LABS: Anisocytosis Slight; Eosinophils % (manual) 9 (0-7); Hypochromia Slight; Lymphocytes % (manual) 22 (10.0-50.0); Monocytes % (manual) 2 (0-12)
[2024-08-04 12:19] LABS: Ovalocytes FEW; Platelet Estimate Adequate
[2024-08-04] MEDS ORDERED: ONDANSETRON HCL 4 MG/2 ML VIAL IV PRN (14:45)
[2024-08-04] MEDS ORDERED: ACETAMINOPHEN 325 MG TAB PO PRN (14:45)
--- NOTE | 2024-08-04 15:17 | DVHHP2 ---
History of Present Illness Reason for Visit: Right leg pain History of Present Illness Natalia Paez is a 69-year-old female with past medical history of hypertension, anemia, arthritis, psoriasis, [place], TIA, right leg stent, appendectomy, bilateral tubal ligation, , hernia repair, hysterectomy, rectal mass resection in [place], and colon polyp removal who presents to the ED with right leg pain x4 months. Patient reports that the pain is 10/10 throbbing and constant starts from her knee and radiates up to her right femoral area. Upon examination patient has hands and feet are contracted also her carranza appears to have abrasions however patient states his from her psoriasis. Patient denies any abdominal pain, chest pain, shortness of breath, fever, chills, lightheadedness and weakness. 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: TIA Heme/Onc: Anemia NOS Past Medical History Arthritis Right leg stent Psoriasis Past Surgical History: Appendectomy, , Hysterectomy, Hernia Repair, Other (Rectal mass sectioning mi and colon polyp removal), Tubal Ligation Smoke: <1 pack per day Drugs: Marijuana Domestic Violence: Neg Review of Systems Constitutional: No: Fever, Chills, Sweats, Weakness, Malaise, Other Eyes: No: Pain, Vision change, Conjunctivae inflammation, Eyelid inflammation, Other, Redness ENT: No: Ear pain, Ear discharge, Nose pain, Nose discharge, Nose congestion, Mouth pain, Mouth swelling, Throat pain, Throat swelling, Other Respiratory: No: Cough, Dry, Shortness of breath, SOB with excertion, Wheezing, Hemoptysis, Pleuritic Pain, Sputum, Wheezing, Other Cardiovascular: No: Chest Pain, Palpitations, Orthopnea, Paroxysmal Noc. Dyspnea, Edema, Lt Headedness, Other Gastrointestinal: No: Nausea, Vomiting, Abdominal Pain, Diarrhea, Constipation, Melena, Hematochezia, Other Genitourinary: No Dysuria, No Frequency, No Incontinence, No Hematuria, No Retention, No Other Musculoskeletal: leg pain; No: other, neck pain, shoulder pain, arm pain, back pain, hand pain, foot pain Skin: Rash Neurological: No: Weakness, Numbness, Incoordination, Change in speech, Confusion, Seizures, Other Allergies: Coded Allergies: Sulfa Antibiotics (Verified Allergy, Unknown, 08/10/18) Exam Vital Signs Vital Signs Date Time Temp Pulse Resp B/P (MAP) Pulse Ox O2 Delivery O2 Flow Rate FiO2 08/04/24 10:19 97.9 90 20 171/84 (113) 96 General Appearance: Alert, Oriented X3, Cooperative HEENT: Atraumatic, PERRLA, EOMI, Mucous membr. moist/pink Respiratory: Normal air movement Cardiovascular: Normal S1, Normal S2, No murmurs Abdominal: Normal bowel sounds, Soft, No tenderness, No hepatospenomegaly, No masses Extremities: No edema Neuro: Normal speech, Sensation intact Psych/Mental Status: Mental status NL, Mood NL Labs/Xrays Labs Test 08/04/24 10:44 Range/Units White Blood Count 4.0 L 4.4-10.8 10^3/uL Red Blood Count 2.99 L 4.0-5.20 10^6/uL Hemoglobin 6.9 *L 12.2-16.2 g/dL Hematocrit 22.3 L 36.0-46.0 % Mean Corpuscular Volume 74.4 L 80.0-100.0 fL Mean Corpuscular Hemoglobin 23.1 L 28.0-32.0 pg Mean Corpuscular Hemoglobin Concent 31.0 L 32.0-36.0 g/dL Red Cell Distribution Width 18.3 H 11.8-14.3 % Platelet Count 390 140-450 10^3/uL Mean Platelet Volume 8.8 6.9-10.8 fL Neutrophils (%) (Auto) 37.0-80.0 % Lymphocytes (%) (Auto) 10.0-50.0 % Monocytes (%) (Auto) 0.0-12.0 % Eosinophils (%) (Auto) 0.0-7.0 % Basophils (%) (Auto) 0.0-2.0 % Neutrophils # (Auto) 1.6-8.6 10 ^3/uL Lymphocytes # (Auto) 0.4-5.4 10 ^3/uL Monocytes # (Auto) 0-1.3 10 ^3/uL Differential Total Cells Counted 100.0 100 Neutrophils % (Manual) 67 37.0-80.0 Band Neutrophils % (Manual) 0 Lymphocytes % (Manual) 22 10.0-50.0 Monocytes % (Manual) 2 0-12 Eosinophils % (Manual) 9 H 0-7 Basophils % (Manual) 0 0.0-2.0 Metamyelocytes % (manual) 0 Myelocytes % (Manual) 0 Promyelocytes % (Manual) 0 Blast Cells % (Manual) 0 Reactive Lymphocytes 0 Platelet Estimate Adequate Hypochromasia (manual) Slight Anisocytosis (manual) Slight Microcytosis Slight Ovalocytes Few Sodium Level 138 136-145 mmol/L Potassium Level 4.1 3.5-5.1 mmol/L Chloride Level 110 H 98-107 mmol/L Carbon Dioxide Level 23 20-31 mmol/L Anion Gap 5 5-15 Blood Urea Nitrogen 19 9-23 mg/dL Creatinine 0.77 0.550-1.02 mg/dL Glomerular Filtration Rate Calc 83 >90 mL/min BUN/Creatinine Ratio 24.7 H 10.0-20.0 Serum Glucose 106 74-106 mg/dL Calcium Level 9.2 8.7-10.4 mg/dL Right Lower Extremity Arterial Duplex Clinical History: R/O ARTERIAL OCCLUSION Comparison: None Technique: Duplex Doppler evaluation including color Doppler and spectral/pulsed waveform analysis of the lower extremity arteries was performed. 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 IMPRESSION: Greater than 75% stenosis of the right mid superficial femoral artery based on peak systolic velocity criteria. Nonvisualization of flow in the right posterior tibial artery. REFERENCE VALUES, [facility] ([facility]) vascular Imaging Lab Criteria: Peak systolic velocity ranges (in cm/sec) are as follows: <150 cm/s - <20 % stenosis 150-200 cm/s - 20-49% stenosis 200-300 cm/s - 50-75% stenosis >300 cm/s -> 75% stenosis Assessment/Plan Assessment/Plan Assessment/plan: Right leg pain due to greater than 75% stenosis of right mid superficial femoral artery Severe anemia History of right leg stent placed last year in December of 2023 at [facility] Labs Type and screen Transfuse PRBCs if hemoglobin less than 7.0 Labs PT/PTT Antiemetics Pain Management Stool occult Iron panel Reticulocyte count Haptoglobin Manual differential Ultrasound right venous duplex Ultrasound right arterial duplex Vascular consult Chronic hypertension Continue home medications Chronic arthritis Continue home medications History of psoriasis Follow up outpatient with PCP History of [place] Monitor History of TIA Monitor FEN/PPX Diet Hep-Lock DVT prophylaxis- patient anemic PUD prophylaxis not indicated no history of GERD or GI bleed Admit to tele Patient states he doesn't take any home medications Discussed plan of care with patient and nurse Plan discussed with: Patient My Orders Orders - WENDY LEW Procedure Category Date Status Time Consult CONS 08/04/24 Transmitted Vascular/Endovascular 14:41 Admit ADMIT 08/04/24 Transmitted 14:41 Code Status CODE 08/04/24 Transmitted 14:41 Vital Signs ALEXANDRA 08/04/24 Transmitted 14:41 Employment And Claims Aide ALEXANDRA 08/04/24 Transmitted 14:41 Cardiac DIET 08/04/24 Transmitted Diet-2gna,Lofat,Lochol Dinner Acetaminophen Tablet PHA 08/04/24 Transmitted (Tylenol Tablet) 14:45 Complete Blood Count LAB 08/05/24 Verified 04:00 Comprehensive LAB 08/05/24 Verified Metabolic Panel 04:00 Ondansetron Hcl PHA 08/04/24 Transmitted (Zofran) 14:45 Electrocardigram EKG 08/05/24 Logged 04:00 Cardiac ALEXANDRA 08/04/24 Transmitted Rehabilitation - Outpa Date of Service: Aug 04, 2024 Billing Provider: WENDY LEW Common Visit Codes: [id number] INP/OBS CARE (HIGH) WENDY LEW Aug 04, 2024 15:17
[2024-08-04 16:15] LABS: % Iron Saturation 5.3 % (15-50)
[2024-08-04 16:24] VITALS: PULSE 81; RESP 15; O2SAT 98
[2024-08-04 16:30] LABS: INR 0.95 (0.9-1.15); Partial Thromboplastin Time 24.3 SEC (24.5-34.5); Prothrombin Time 10.1 sec (9.3-11.8)
[2024-08-04 17:05] LABS: Urine Bacteria FEW /hpf (None Seen); Urine Blood Negative /uL (Negative); Urine Clarity Clear (Clear); Urine Color Light-Yellow (Yellow); Urine Hyaline Cast FEW /lpf (0 - 2); Urine Protein, UAD Negative (Negative); Urine Specific Gravity 1.015 (1.001-1.035); Urine Squamous Epithelial Cell FEW /hpf (<5); Urine Urobilinogen Normal (Negative); Urine WBC 1 /HPF (0-5); Urine pH 5.5 (5.0-9.0)
[2024-08-04 17:11] VITALS: BP 182/73; PULSE 91; RESP 20; TEMP 98.7; O2SAT 97
[2024-08-04] MEDS: HYDROcodone-ACET 5/325MG TAB PO PRN (17:37)
[2024-08-04 18:17] VITALS: O2SAT 95
[2024-08-04] MEDS: hydrALAZINE HCL 20 MG/ML VL IV PRN (19:27)
[2024-08-04 20:00] VITALS: PULSE 98
[2024-08-04] MEDS: MORPHINE SULFATE INJ 2 MG/ml SYRG IV PRN (21:32)
[2024-08-05] VITALS (11 sets, daily range): BP systolic 126–152; BP diastolic 52–78; PULSE 89–99; RESP 14–20; TEMP 98.2–98.9; O2SAT 94–99
[2024-08-05 02:05] LABS: Urine Bacteria None Seen /hpf (None Seen)
[2024-08-05 02:12] LABS: Urine Blood Negative /uL (Negative); Urine Clarity Turbid (Clear); Urine Color Light-Yellow (Yellow); Urine Mucus FEW (None Seen); Urine Protein, UAD Negative (Negative); Urine Specific Gravity 1.017 (1.001-1.035); Urine Squamous Epithelial Cell FEW /hpf (<5); Urine Urobilinogen Normal (Negative); Urine WBC 1 /HPF (0-5); Urine pH 5.5 (5.0-9.0)
[2024-08-05 08:02] LABS: Basophils # (auto) 0 10 ^3/uL (0-0.2); Basophils % (auto) 1.2 % (0.0-2.0); Eosinophils # (auto) 0.5 10 ^3/uL (0-0.8); Eosinophils % (auto) 13.7 % (0.0-7.0); Hematocrit 26.7 % (36.0-46.0); Hemoglobin 8.6 g/dL (12.2-16.2); Lymphocytes # (auto) 0.8 10 ^3/uL (0.4-5.4); Lymphocytes % (auto) 23.1 % (10.0-50.0); Mean Corpuscular Hemoglobin 24.6 pg (28.0-32.0); Mean Corpuscular Hgb Conc. 32.2 g/dL (32.0-36.0); Mean Corpuscular Volume 76.4 fL (80.0-100.0); Monocytes # (auto) 0.4 10 ^3/uL (0-1.3); Monocytes % (auto) 10.3 % (0.0-12.0); Neutrophils # (auto) 1.8 10 ^3/uL (1.6-8.6); Neutrophils % (auto) 51.7 % (37.0-80.0); Platelet Count (auto) 345 10^3/uL (140-450); Red Blood Cells 3.49 10^6/uL (4.0-5.20); Red Cell Distribution Width 19.2 % (11.8-14.3); White Blood Cell 3.5 10^3/uL (4.4-10.8)
[2024-08-05 08:07] LABS: Alkaline Phosphatase 109 U/L (46-116); Anion Gap 8 (5-15); BUN/Creatinine Ratio 22.1 (10.0-20.0); Bilirubin, Total 0.4 mg/dL (0.2-1.0); Blood Urea Nitrogen 17 mg/dL (9-23); Calcium 9.3 mg/dL (8.7-10.4); Carbon Dioxide 21 mmol/L (20-31); Glucose 104 mg/dL (74-106); Potassium 3.8 mmol/L (3.5-5.1); Sodium 138 mmol/L (136-145)
[2024-08-05 08:08] LABS: Albumin 3.7 g/dL (3.2-4.8); Total Protein 6.7 g/dL (5.7-8.2)
[2024-08-05 08:17] LABS: Alanine Aminotransferase < 9 U/L (7-40); Aspartate Aminotransferase 10 U/L (13-40); Chloride 109 mmol/L (98-107)
[2024-08-05] MEDS ORDERED: CYANOCOBALAMIN (B-12) 1000 MCG/1 ML VIAL SUBCUT SCH (10:00)
[2024-08-05] MEDS: amLODIPine BESYLATE 5 MG TAB PO SCH (11:04)
[2024-08-05] MEDS: LISINOPRIL 20 MG TAB PO SCH (11:05)
--- NOTE | 2024-08-05 12:31 | DVHPN2 ---
Reviewed: Care Plan, H&P, Labs, Medications, Previous Orders, Radiology Changes from previous H/P or p: No Changes Eyes: No Pain, No Vision change, No Conjunctivae inflammation, No Eyelid inflammation, No Other, No Redness ENT: No Ear pain, No Ear discharge, No Nose pain, No Nose discharge, No Nose congestion, No Mouth pain, No Mouth swelling, No Throat pain, No Throat swelling, No Other Cardiovascular: No Chest Pain, No Palpitations, No Orthopnea, No Paroxysmal Noc. Dyspnea, No Edema, No Lt Headedness, No Other Respiratory: No Cough, No Dry, No Shortness of breath, No SOB with excertion, No Wheezing, No Hemoptysis, No Pleuritic Pain, No Sputum, No Other Gastrointestinal: No Nausea, No Vomiting, No Abdominal Pain, No Diarrhea, No Constipation, No Melena, No Hematochezia, No Other Genitourinary: No Dysuria, No Frequency, No Incontinence, No Hematuria, No Retention, No Other Musculoskeletal: No other, No neck pain, No shoulder pain, No arm pain, No back pain, No hand pain; leg pain; No foot pain Skin: Rash Objective Vitals Vital Signs Date Time Temp Pulse Resp B/P (MAP) Pulse Ox O2 Delivery O2 Flow Rate FiO2 08/05/24 11:44 99 18 141/78 08/05/24 08:37 98.9 98 98.9 08/04/24 20:00 Room Air* 0 21 Intake/Output Intake and Output 08/05/24 07:00 Intake Total 520 ml Balance 520 ml Intake Oral 220 ml Blood Product 300 ml # Voids 1 # Bowel Movements 1 Medications Current Medications Medications Dose Ordered Sig/Bebo Route Start Time Stop Time Status Last Admin Dose Admin Acetaminophen 650 mg Q6HP PRN PO 08/04/24 14:45 Ondansetron HCl 4 mg Q4HP PRN IV 08/04/24 14:45 Acetaminophen/ Hydrocodone Bitart 1 tab Q6HPRN PRN PO 08/04/24 15:15 08/04/24 17:37 1 TAB Morphine Sulfate 1 mg Q6HP PRN IV 08/04/24 15:15 08/05/24 11:14 1 MG Amlodipine Besylate 10 mg DAILY PO 08/05/24 10:00 08/05/24 11:04 10 MG Lisinopril 20 mg DAILY PO 08/05/24 10:00 08/05/24 11:05 20 MG Cyanocobalamin 1,000 mcg DAILY SUBCUT 08/05/24 10:00 Hold Hydralazine HCl 10 mg Q4HP PRN IV 08/04/24 18:45 08/05/24 01:31 10 MG Laboratory Results Laboratory Tests 08/05/24 07:15 Chemistry Test 08/05/24 07:15 Albumin 3.7 g/dL (3.2-4.8) Calcium Level 9.3 mg/dL (8.7-10.4) Total Protein 6.7 g/dL (5.7-8.2) Coagulation Test 08/04/24 15:37 Prothrombin Time 10.1 sec (9.3-11.8) Prothrombin Time INR 0.95 (0.9-1.15) Activated Partial Thromboplast Time 24.3 SEC (24.5-34.5) L LFT Test 08/05/24 07:15 Alanine Aminotransferase (ALT) < 9 U/L (7-40) Alkaline Phosphatase 109 U/L (46-116) Aspartate Amino Transferase (AST) 10 U/L (13-40) L Total Bilirubin 0.4 mg/dL (0.2-1.0) Urinalysis Test 08/04/24 16:32 08/05/24 00:39 Urine Hyaline Casts Few /lpf (0 - 2) Urine Color Light-yellow (Yellow) Urine Clarity Turbid (Clear) H Urine pH 5.5 (5.0-9.0) Urine Specific [place] 1.017 (1.001-1.035) Urine Protein Negative (Negative) Urine Ketones Negative (Negative) Urine Blood Negative /uL (Negative) Urine Nitrite Negative (Negative) Urine Bilirubin Negative (Negative) Urine Urobilinogen Normal mg/dL (Negative) Urine Leukocyte Esterase Negative /uL (Negative) Urine RBC 1 /hpf (0 - 4) Urine Microscopic WBC 1 /HPF (0-5) Urine Squamous Epithelial Cells Few /hpf (<5) Urine Bacteria None seen /hpf (None Seen) Urine Mucus Few (None Seen) Urine Glucose Normal mg/dL (Normal) Labs and/or images reviewed: Labs reviewed by me, Image(s) reviewed by me Assessment/Plan Assessment/Plan Severe Pain right lower extremity secondary to more than 75 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 Emerson History of stents right lower extremity Severe symptomatic anemia hemoglobin 6 .9:improved to 8.6 after 1 unit RBC transfusion, GI consult for Dr. Ira Mancini Hypertension: Amlodipine lisinopril History of [place] TIA Severe rheumatoid arthritis Psoriasis History of rectal mass resection Rupture of colon polyp surgery Time spent 70 minutes Patient is full code Advanced care planning time 20 mts Plan discussed with: Patient Date of Service: Aug 05, 2024 Billing Provider: DAVID CORREA MD Common Visit Codes: [id number] CARE 30-74 MIN DAVID CORREA MD Aug 05, 2024 12:31
--- NOTE | 2024-08-05 14:49 | DVH ---
Exam: CT CT AB PEL WO CON-NO ORAL OR IV History: Abdominal pain Comparison Study: None Technique: Multidetector spiral CT of the abdomen was performed from lung bases to pubic symphysis. Imaging was performed without IV contrast. Axial, coronal and sagittal multiplanar reformats were ob tained from the axial data set by the technologist. Radiation Dose : 1. Abdomen/Pelvis: CTDIvol 7.56 mGy, DLP 353.12 mGy*cm. Findings: Evaluation of solid organs is limited due to lack of intravenous contrast use. Lung Bases: No acute or significant lung base finding. Normal heart size. No pleural or pericardial effusion. Liver: Fatty infiltration of the liver.. No focal lesions. Gallbladder and Biliary Tree: Peripherally calcified gallstone Spleen: Unremarkable Pancreas: The pancreas is grossly normal in appearance. Adrenal Glands: Unremarkable Kidneys: No hydronephrosis. Lobulated contour of the right kidney secondary to scarring. Small cyst in the upper pole the left kidney. No renal calculi. Bladder: Grossly unremarkable for degree of distention. Bowel: Moderately large hiatal hernia.. Appendix not identified. Postsurgical changes adjacent to the cecum. Moderate hiatal hernia. Ascites: Absent Lymphadenopathy: Persistent prominent lymph nodes along the pelvic sidewalls. Findings not significa nt changed from the prior study. Abdominal Wall and Mesentery: Prominent ventral hernia containing large and small bowel without obstr uction. Vasculature: Severe calcification with moderate narrowing of the distal abdominal aorta secondary to calcified plaque Pelvic Organs: Surgical absence of the uterus. Persistent cystic left adnexal mass, unchanged from th e prior study. Findings stable. Musculoskeletal: Chronic compression fracture T12.90% loss of height. IMPRESSION: 1. Moderately large hiatal hernia 2. Chronic T12 compression fraction Severe vascular calcification of the aorta Calcified gallstone Pelvic lymphadenopathy, stable Left adnexal cystic mass, stable No diverticulitis No bowel obstruction Radiation optimization: All CT scans at this facility use at least one of these dose optimization alexandra hniques: automated exposure control mA and/or kV adjustment per patient size (includes targeted exam s where dose is matched to clinical indication) or iterative reconstruction.
--- NOTE | 2024-08-05 14:57 | DVHCONRES ---
Date Seen: Aug 05, 2024 Resident Creating Document: MEKHI CANTRELL RESIDENT Referring Physician MD Ernie History of Present Illness Natalia Paez is a 69-year-old female with past medical history of hypertension, anemia, Rheumatoid arthritis, psoriasis, CAD, TIA, right leg stent, Ventral hernia ,appendectomy, bilateral tubal ligation, , hernia repair, hysterectomy, rectal mass resection in [place], and colon polyp removal who presents to the ED with right leg pain x4 months. Patient reports that the pain is 10/10 throbbing and constant starts from her knee and radiates up to her right femoral area. Upon examination patient has hands and feet are contracted also her carranza appears to have abrasions however patient states his from her psoriasis. Patient denies any abdominal pain, chest pain, shortness of breath, fever, chills, lightheadedness and weakness. The patient was and examined on the bedside. She is alert oriented x3. Complaint of abdominal pain but denies hematemesis, hemoptysis, melena, per rectal bleeding. No other active complaint. Family History: AIDS G8 BROTHER G8 BROTHER G8 BROTHER G8 SISTER Asthma Cancer G8 FATHER FH: brain tumor G8 BROTHER FH: breast cancer G8 FATHER FH: pancreatic cancer G8 MOTHER FH: pneumonia Family history: Coronary thrombosis Family history: Diabetes mellitus G8 MOTHER G8 FATHER Hypertension Allergies: Coded Allergies: Acetaminophen (Verified Allergy, Severe, "body turns red" "It becomes hard to breath", 08/04/24) "body turns red" "It becomes hard to breath" Aspirin (Verified Allergy, Severe, "body turns red" "It becomes hard to breath", 08/04/24) "body turns red" "It becomes hard to breath" Sulfa Antibiotics (Verified Allergy, Unknown, 08/10/18) Home Meds Active Scripts Hydrocortisone (Rectal) (Procto-Med Hc) 2.5 % Cre, 2.5 % DC Q6HPRN PRN, #28 GRAMS 5 Refills Prov:SCOTTIE AMAYA MD 05/15/23 Hydrocodone-Acetaminophen (Hydrocodone Bitartrate/AC 5-325 mg) 1 Tab Tab, 1 TAB PO Q4HP PRN, #30 TAB Prov:SCOTTIE AMAYA MD 05/14/23 Amlodipine Besylate (NORVASC TABLET) 5 Mg Tb, 10 MG PO DAILY, #30 Prov:NADIYA REICH MD 02/10/19 Lisinopril (Lisinopril) 20 Mg Tab, 1 TAB PO DAILY, #30 TAB 5 Refills Prov:NADIYA REICH MD 02/10/19 Reported Medications Nitroglycerin (Nitrostat) 0.4 Mg Sub, 0.4 MG SL 02/08/19 Hydrocodone-Acetaminophen ([place] 5/325MG) 1 Tab Tb, 1 TAB PO Q6HR, #60 TAB 02/08/19 Vitamin B12 (Vitamin B-12) 1,000 Mcg/1 Ml Ij, 1 TAB PO DAILY 02/07/19 Current Medications Current Medications Medications (Trade) Dose Ordered Sig/Bebo Route PRN Reason Start Time Stop Time Status Last Admin Acetaminophen/ Hydrocodone Bitart ([place] 5/325MG Tab) 1 tab Q6HPRN PRN PO MODERATE PAIN (4-6 PAIN SCALE) 08/04/24 15:15 Hold 08/04/24 17:37 Morphine Sulfate 1 mg Q6HP PRN IV SEVERE PAIN (7-10 PAIN SCALE) 08/04/24 15:15 08/05/24 11:14 Amlodipine Besylate (Norvasc Tablet) 10 mg DAILY PO 08/05/24 10:00 08/05/24 11:04 Lisinopril (Zestril Tablet) 20 mg DAILY PO 08/05/24 10:00 08/05/24 11:05 Cyanocobalamin (Vitamin B-12 Injection) 1,000 mcg DAILY SUBCUT 08/05/24 10:00 Hold Hydralazine HCl (Apresoline Injection) 10 mg Q4HP PRN IV SBP>150 08/04/24 18:45 08/05/24 01:31 Pantoprazole Sodium (Protonix Tablet) 40 mg DAILY@0600 PO 08/06/24 06:00 Diphenhydramine HCl (Benadryl Capsule) 25 mg Q6HP PRN PO FOR ITCHING 08/05/24 14:30 UNV Vital Signs Vital Signs Date Time Temp Pulse Resp B/P (MAP) Pulse Ox O2 Delivery O2 Flow Rate FiO2 08/05/24 13:00 98.2 90 20 134/65 (88) 99 98.2 08/05/24 08:00 Room Air* 0 21 Physical Exam Physical examination: General Appearance: Alert, Oriented X3, Cooperative, No acute distress HEENT: Atraumatic, PERRLA, EOMI, Mucous membrane moist/pink Respiratory: Clear to auscultation, Normal air movement Cardiovascular: Regular rate, Normal S1, Normal S2, No murmurs, no chest wall tenderness Abdominal: Large ventral hernia, Normal bowel sounds, Soft, No h epatospenomegaly. Extremities: No clubbing, No cyanosis, No edema, Normal pulses, No tenderness/swelling Skin: No rashes, No breakdown, No significant lesion Neuro: Normal gait, Normal speech, Strength at 5/5 X4 ext, Normal tone, Sensation intact, grossly intact cranial nerves. Psych/Mental Status: Mental status NL, Mood NL Labs/Diagnostic Data Labs Test 08/05/24 07:15 08/05/24 00:39 08/04/24 16:32 08/04/24 15:37 Range/Units White Blood Count 3.5 L 4.4-10.8 10^3/uL Red Blood Count 3.49 L 4.0-5.20 10^6/uL Hemoglobin 8.6 #L 12.2-16.2 g/dL Hematocrit 26.7 #L 36.0-46.0 % Mean Corpuscular Volume 76.4 L 80.0-100.0 fL Mean Corpuscular Hemoglobin 24.6 L 28.0-32.0 pg Mean Corpuscular Hemoglobin Concent 32.2 32.0-36.0 g/dL Red Cell Distribution Width 19.2 H 11.8-14.3 % Platelet Count 345 140-450 10^3/uL Mean Platelet Volume 8.5 6.9-10.8 fL Neutrophils (%) (Auto) 51.7 37.0-80.0 % Lymphocytes (%) (Auto) 23.1 10.0-50.0 % Monocytes (%) (Auto) 10.3 0.0-12.0 % Eosinophils (%) (Auto) 13.7 H 0.0-7.0 % Basophils (%) (Auto) 1.2 0.0-2.0 % Neutrophils # (Auto) 1.8 1.6-8.6 10 ^3/uL Lymphocytes # (Auto) 0.8 0.4-5.4 10 ^3/uL Monocytes # (Auto) 0.4 0-1.3 10 ^3/uL Eosinophils # (Auto) 0.5 0-0.8 10 ^3/uL Basophils # (Auto) 0 0-0.2 10 ^3/uL Nucleated Red Blood Cells 0.0 % Sodium Level 138 136-145 mmol/L Potassium Level 3.8 3.5-5.1 mmol/L Chloride Level 109 H 98-107 mmol/L Carbon Dioxide Level 21 20-31 mmol/L Anion Gap 8 5-15 Blood Urea Nitrogen 17 9-23 mg/dL Creatinine 0.77 0.550-1.02 mg/dL Glomerular Filtration Rate Calc 83 >90 mL/min BUN/Creatinine Ratio 22.1 H 10.0-20.0 Serum Glucose 104 74-106 mg/dL Calcium Level 9.3 8.7-10.4 mg/dL Ferritin 6.7 L 10-291 ng/mL Total Bilirubin 0.4 0.2-1.0 mg/dL Aspartate Amino Transferase (AST) 10 L 13-40 U/L Alanine Aminotransferase (ALT) < 9 7-40 U/L Alkaline Phosphatase 109 46-116 U/L Total Protein 6.7 5.7-8.2 g/dL Albumin 3.7 3.2-4.8 g/dL Urine Color Light-yellow Yellow Urine Clarity Turbid H Clear Urine pH 5.5 5.0-9.0 Urine Specific [place] 1.017 1.001-1.035 Urine Protein Negative Negative Urine Ketones Negative Negative Urine Blood Negative Negative /uL Urine Nitrite Negative Negative Urine Bilirubin Negative Negative Urine Urobilinogen Normal Negative mg/dL Urine Leukocyte Esterase Negative Negative /uL Urine RBC 1 0 - 4 /hpf Urine Microscopic WBC 1 0-5 /HPF Urine Squamous Epithelial Cells Few <5 /hpf Urine Bacteria None seen None Seen /hpf Urine Mucus Few None Seen Urine Glucose Normal Normal mg/dL Urine Hyaline Casts Few 0 - 2 /lpf Prothrombin Time 10.1 9.3-11.8 sec Prothrombin Time INR 0.95 0.9-1.15 Activated Partial Thromboplast Time 24.3 L 24.5-34.5 SEC Test 08/04/24 10:44 Range/Units Differential Total Cells Counted 100.0 100 Neutrophils % (Manual) 67 37.0-80.0 Band Neutrophils % (Manual) 0 Lymphocytes % (Manual) 22 10.0-50.0 Monocytes % (Manual) 2 0-12 Eosinophils % (Manual) 9 H 0-7 Basophils % (Manual) 0 0.0-2.0 Metamyelocytes % (manual) 0 Myelocytes % (Manual) 0 Promyelocytes % (Manual) 0 Blast Cells % (Manual) 0 Reactive Lymphocytes 0 Platelet Estimate Adequate Hypochromasia (manual) Slight Anisocytosis (manual) Slight Microcytosis Slight Ovalocytes Few Reticulocyte Count (auto) 1.25 0.5-1.5 % Haptoglobin 204 37-355 mg/dL Iron Level 18 L 50-170 ug/dL Total Iron Binding Capacity 340 250-425 ug/dL Percent Iron Saturation 5.3 L 15-50 % Assessment Assessment: # Possible upper versus lower GI bleeding # Microcytic hypochromic anaemia # Large ventral hernia # CAD with s/p stentX4 # Possible peripheral arterial disease # History of rectal polyp , s/p surgery # Severe rheumatoid arthritis and psoriasis Patient underwent EGD on [address] Wilson and revealed hiatal hernia with mild antral gastritis and colonoscopy on November 2021 in [place] Plan: - 1 units of PRBC given and H&H is stable - Protonix 40 mg p.o. daily - CT abdomen pelvis without contrast to rule out incarcerated/strangulated ventral hernia - Pending FOBT - Will reevaluate the patient in 24-48 hours - Possible EGD on Wednesday if sign of continuous bleeding present . - Recommended outpatient GI follow up after discharge. Plan discussed with Dr. Mancini Plan discussed with: Patient, Other MEKHI CANTRELL RESIDENT Aug 05, 2024 14:57
[2024-08-05] MEDS: PANTOPRAZOLE 40 MG TAB PO ONE (18:29)
[2024-08-05] MEDS: diphenhdrAMINE HCL 25 MG CAP PO PRN (20:13)
[2024-08-06] VITALS (8 sets, daily range): BP systolic 93–142; BP diastolic 37–63; PULSE 64–95; RESP 16–18; TEMP 97.2–98.5; O2SAT 94–99
[2024-08-06] MEDS: PANTOPRAZOLE 40 MG TAB PO SCH (05:13)
[2024-08-06 06:50] LABS: Anion Gap 7 (5-15); Carbon Dioxide 22 mmol/L (20-31); Sodium 137 mmol/L (136-145)
[2024-08-06 06:51] LABS: Calcium 9.5 mg/dL (8.7-10.4); Eosinophils # (auto) 0.4 10 ^3/uL (0-0.8); Hemoglobin 8.2 g/dL (12.2-16.2); Monocytes # (auto) 0.4 10 ^3/uL (0-1.3); Monocytes % (auto) 10.8 % (0.0-12.0); White Blood Cell 3.8 10^3/uL (4.4-10.8)
[2024-08-06 06:54] LABS: Basophils # (auto) 0 10 ^3/uL (0-0.2); Basophils % (auto) 1.3 % (0.0-2.0); Eosinophils % (auto) 11.6 % (0.0-7.0); Hematocrit 25.8 % (36.0-46.0); Mean Corpuscular Hemoglobin 24.4 pg (28.0-32.0); Mean Corpuscular Hgb Conc. 31.7 g/dL (32.0-36.0); Mean Corpuscular Volume 77.2 fL (80.0-100.0); Neutrophils % (auto) 51.3 % (37.0-80.0); Nucleated Red Blood Cells % 0.1 %; Platelet Count (auto) 334 10^3/uL (140-450); Red Blood Cells 3.35 10^6/uL (4.0-5.20); Red Cell Distribution Width 18.9 % (11.8-14.3)
[2024-08-06 06:56] LABS: Blood Urea Nitrogen 16 mg/dL (9-23); Glucose 100 mg/dL (74-106)
[2024-08-06 06:57] LABS: Chloride 108 mmol/L (98-107)
[2024-08-06 08:49] LABS: Hypochromia Slight; Platelet Estimate Adequate
--- NOTE | 2024-08-06 09:26 | DVHPN2 ---
Reviewed: Care Plan, H&P, Labs, Medications, Previous Orders, Radiology Changes from previous H/P or p: No Changes Eyes: No Pain, No Vision change, No Conjunctivae inflammation, No Eyelid inflammation, No Other, No Redness ENT: No Ear pain, No Ear discharge, No Nose pain, No Nose discharge, No Nose congestion, No Mouth pain, No Mouth swelling, No Throat pain, No Throat swelling, No Other Cardiovascular: No Chest Pain, No Palpitations, No Orthopnea, No Paroxysmal Noc. Dyspnea, No Edema, No Lt Headedness, No Other Respiratory: No Cough, No Dry, No Shortness of breath, No SOB with excertion, No Wheezing, No Hemoptysis, No Pleuritic Pain, No Sputum, No Other Gastrointestinal: No Nausea, No Vomiting, No Abdominal Pain, No Diarrhea, No Constipation, No Melena, No Hematochezia, No Other Genitourinary: No Dysuria, No Frequency, No Incontinence, No Hematuria, No Retention, No Other Musculoskeletal: No other, No neck pain, No shoulder pain, No arm pain, No back pain, No hand pain; leg pain; No foot pain Skin: Rash Objective Vitals Vital Signs Date Time Temp Pulse Resp B/P (MAP) Pulse Ox O2 Delivery O2 Flow Rate FiO2 08/06/24 08:59 97.7 78 16 93/63 (73) 94 97.7 08/05/24 20:00 Room Air* 0 21 Intake/Output Intake and Output 08/06/24 07:00 Intake Total 1080 ml Output Total 500 ml Balance 580 ml Intake Oral 1080 ml Output Urine Total 500 ml # Voids 2 Medications Current Medications Medications Dose Ordered Sig/Bebo Route Start Time Stop Time Status Last Admin Dose Admin Acetaminophen 650 mg Q6HP PRN PO 08/04/24 14:45 Hold Ondansetron HCl 4 mg Q4HP PRN IV 08/04/24 14:45 Acetaminophen/ Hydrocodone Bitart 1 tab Q6HPRN PRN PO 08/04/24 15:15 Hold 08/04/24 17:37 1 TAB Morphine Sulfate 1 mg Q6HP PRN IV 08/04/24 15:15 08/06/24 06:49 1 MG Amlodipine Besylate 10 mg DAILY PO 08/05/24 10:00 08/05/24 11:04 10 MG Lisinopril 20 mg DAILY PO 08/05/24 10:00 08/05/24 11:05 20 MG Cyanocobalamin 1,000 mcg DAILY SUBCUT 08/05/24 10:00 Hold Hydralazine HCl 10 mg Q4HP PRN IV 08/04/24 18:45 08/05/24 01:31 10 MG Pantoprazole Sodium 40 mg DAILY@0600 PO 08/06/24 06:00 08/06/24 05:13 40 MG Diphenhydramine HCl 25 mg Q6HP PRN PO 08/05/24 14:30 08/06/24 05:13 25 MG Laboratory Results Laboratory Tests 08/06/24 05:44 Chemistry Test 08/06/24 05:44 Calcium Level 9.5 mg/dL (8.7-10.4) Urinalysis Test 08/04/24 16:32 08/05/24 00:39 Urine Hyaline Casts Few /lpf (0 - 2) Urine Color Light-yellow (Yellow) Urine Clarity Turbid (Clear) H Urine pH 5.5 (5.0-9.0) Urine Specific [place] 1.017 (1.001-1.035) Urine Protein Negative (Negative) Urine Ketones Negative (Negative) Urine Blood Negative /uL (Negative) Urine Nitrite Negative (Negative) Urine Bilirubin Negative (Negative) Urine Urobilinogen Normal mg/dL (Negative) Urine Leukocyte Esterase Negative /uL (Negative) Urine RBC 1 /hpf (0 - 4) Urine Microscopic WBC 1 /HPF (0-5) Urine Squamous Epithelial Cells Few /hpf (<5) Urine Bacteria None seen /hpf (None Seen) Urine Mucus Few (None Seen) Urine Glucose Normal mg/dL (Normal) Microbiology Microbiology Date/Time Source Procedure Growth Status 08/04/24 20:45 Nose MRSA Screen - Final Complete Labs and/or images reviewed: Labs reviewed by me, Image(s) reviewed by me Assessment/Plan Assessment/Plan Severe Pain right lower extremity secondary to more than 75 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 Emerson History of stents right lower extremity Severe symptomatic anemia hemoglobin 6 .9:improved to 8.6 after 1 unit RBC transfusion, GI consult for Dr. Ira Mancini Hypertension: Amlodipine lisinopril History of [place] TIA Severe rheumatoid arthritis Psoriasis History of rectal mass resection Rupture of colon polyp surgery Time spent 65 minutes Patient is full code Advanced care planning time 20 mts Plan discussed with: Patient My Orders Orders - DAVID CORREA MD Procedure Category Date Status Time * Gi Dvh Underwriting Clerk CONS 08/05/24 Transmitted 12:25 Diphenhdramine PHA 08/05/24 In Process Capsule (Benadryl 14:30 Date of Service: Aug 06, 2024 Billing Provider: DAVID CORREA MD Common Visit Codes: [id number] INP/OBS CARE(HIGH) DAVID CORREA MD Aug 06, 2024 09:26
[2024-08-06] MEDS: SODIUM CHLORIDE 0.9% 1,000 ML IV SCH (10:15)
--- NOTE | 2024-08-06 12:32 | DVHPN2 ---
Progress Note Date Seen: Aug 06, 2024 Resident Creating Document: DIANA APARICIO RESIDENT Medical Necessity Reason Pt with a Central, PICC or Fol: No Subjective Review of Systems Patient seen and examined at bed side, Continue to complains of lower ext pain, Mild abdominal pain, She started having abpain after her dog jumped on her stomach. Stool occult is pending. Hemoglobin is 8.2 today. no other complains. Objective vital signs Vital Sign Date Time Temp Pulse Resp B/P (MAP) Pulse Ox O2 Delivery O2 Flow Rate FiO2 08/06/24 09:37 93/63 08/06/24 08:59 97.7 78 16 94 97.7 08/06/24 08:00 Room Air* 0 21 Total Intake and Output 08/05/24 08/05/24 08/06/24 15:00 23:00 07:00 Intake Total 230 ml 600 ml 250 ml Output Total 500 ml Balance 230 ml 100 ml 250 ml medications Current Medications Medications Dose Ordered Sig/Bebo Route Start Time Stop Time Status Last Admin Dose Admin Acetaminophen 650 mg Q6HP PRN PO 08/04/24 14:45 Hold Ondansetron HCl 4 mg Q4HP PRN IV 08/04/24 14:45 Acetaminophen/ Hydrocodone Bitart 1 tab Q6HPRN PRN PO 08/04/24 15:15 Hold 08/04/24 17:37 1 TAB Morphine Sulfate 1 mg Q6HP PRN IV 08/04/24 15:15 08/06/24 06:49 1 MG Amlodipine Besylate 10 mg DAILY PO 08/05/24 10:00 08/05/24 11:04 10 MG Lisinopril 20 mg DAILY PO 08/05/24 10:00 08/05/24 11:05 20 MG Cyanocobalamin 1,000 mcg DAILY SUBCUT 08/05/24 10:00 Hold Hydralazine HCl 10 mg Q4HP PRN IV 08/04/24 18:45 08/05/24 01:31 10 MG Pantoprazole Sodium 40 mg DAILY@0600 PO 08/06/24 06:00 08/06/24 05:13 40 MG Diphenhydramine HCl 25 mg Q6HP PRN PO 08/05/24 14:30 08/06/24 05:13 25 MG Sodium Chloride 1,000 ml @ 125 mls/hr Q8H IV 08/06/24 10:15 08/06/24 10:15 125 MLS/HR Bacitracin 1 applic BID TOP 08/06/24 22:00 Examination: GENERAL:Normal, HEENT:Normal, NECK:Normal, LUNGS:Normal, CVS:Normal, ABDOMEN:Normal, MSK:Normal, SKIN:Normal, NEURO:Normal, :Normal laboratory and microbiology Laboratory Tests 08/06/24 05:44 Test 08/06/24 05:44 Range/Units Serum Glucose 100 74-106 mg/dL Microbiology Date/Time Source Procedure Growth Status 08/04/24 20:45 Nose MRSA Screen - Final Complete Problem List/Assessment/Plan Problem List/Assessment/Plan # Possible upper versus lower GI bleeding # Microcytic hypochromic anaemia # Large ventral hernia # CAD with s/p stentX4 # Possible peripheral arterial disease # History of rectal polyp , s/p surgery # Severe rheumatoid arthritis and psoriasis Patient underwent EGD [place] [address] Wilson and revealed hiatal hernia with mild antral gastritis and colonoscopy on November 2021 in [place] Plan: Dr Mancini Hemoglobin and hematocrit stable at this point. Continuing Protonix 40 mg p.o. daily. Pending FOBT at this point. Please collect stool sample. We will keep NPO after midnight for possible EGD tomorrow. - 1 units of PRBC given and H&H is stable - Protonix 40 mg p.o. daily - CT abdomen pelvis without contrast to rule out incarcerated/strangulated ventral hernia - Pending FOBT - Will reevaluate the patient in 24-48 hours - Recommended outpatient GI follow up after discharge. Plan discussed with: Patient, Other (RN) DIANA APARICIO RESIDENT Aug 06, 2024 12:32
[2024-08-06] MEDS: BACITRACIN TOP OINT 1 UD PKG TOP SCH (20:47)
[2024-08-07] VITALS (9 sets, daily range): BP systolic 118–159; BP diastolic 55–72; PULSE 82–91; RESP 12–20; TEMP 97.8–99; O2SAT 96–99
--- NOTE | 2024-08-07 07:40 | DVHCONRES ---
Date Seen: Aug 07, 2024 Resident Creating Document: MISAEL ERVIN Jr., MD Referring Physician Ernie Reason for Consultation SFA stenosis History of Present Illness 69 y/o F, with history of anemia, arthritis, HTN, HI, TIA, psoriasis, and right leg stent, history of colon polyp removal in [place] state, presents with c/o right leg pain for 4 months, today. Patient is a poor historian and endorses on pain being constant following a stent placement in her right leg 4 months ago. The patient is bed bound. Past Medical History anemia, arthritis, HTN, HI, TIA, psoriasis, and right leg stent, history of colon polyp removal Past Surgical History Coronary stents Family History: AIDS G8 BROTHER G8 BROTHER G8 BROTHER G8 SISTER Asthma Cancer G8 FATHER FH: brain tumor G8 BROTHER FH: breast cancer G8 FATHER FH: pancreatic cancer G8 MOTHER FH: pneumonia Family history: Coronary thrombosis Family history: Diabetes mellitus G8 MOTHER G8 FATHER Hypertension Social History Nonsmoker nondrinker Allergies: Coded Allergies: Acetaminophen (Verified Allergy, Severe, "body turns red" "It becomes hard to breath", 08/04/24) "body turns red" "It becomes hard to breath" Aspirin (Verified Allergy, Severe, "body turns red" "It becomes hard to breath", 08/04/24) "body turns red" "It becomes hard to breath" Sulfa Antibiotics (Verified Allergy, Unknown, 08/10/18) Home Meds Active Scripts Hydrocortisone (Rectal) (Procto-Med Hc) 2.5 % Cre, 2.5 % ME Q6HPRN PRN, #28 GRAMS 5 Refills Prov:SCOTTIE AMAYA MD 05/15/23 Hydrocodone-Acetaminophen (Hydrocodone Bitartrate/AC 5-325 mg) 1 Tab Tab, 1 TAB PO Q4HP PRN, #30 TAB Prov:SCOTTIE AMAYA MD 05/14/23 Amlodipine Besylate (NORVASC TABLET) 5 Mg Tb, 10 MG PO DAILY, #30 Prov:NADIYA REICH MD 02/10/19 Lisinopril (Lisinopril) 20 Mg Tab, 1 TAB PO DAILY, #30 TAB 5 Refills Prov:NADIYA REICH MD 02/10/19 Reported Medications Nitroglycerin (Nitrostat) 0.4 Mg Sub, 0.4 MG SL 02/08/19 Hydrocodone-Acetaminophen ([place] 5/325MG) 1 Tab Tb, 1 TAB PO Q6HR, #60 TAB 02/08/19 Vitamin B12 (Vitamin B-12) 1,000 Mcg/1 Ml Ij, 1 TAB PO DAILY 02/07/19 Current Medications Current Medications Medications (Trade) Dose Ordered Sig/Bebo Route PRN Reason Start Time Stop Time Status Last Admin Sodium Chloride 1,000 ml @ 125 mls/hr Q8H IV 08/06/24 10:15 08/06/24 18:35 Bacitracin 1 applic BID TOP 08/06/24 22:00 08/06/24 20:47 Review of Systems All systems reviewed otherwise negative other than what is in HPI. Vital Signs Vital Signs Date Time Temp Pulse Resp B/P (MAP) Pulse Ox O2 Delivery O2 Flow Rate FiO2 08/07/24 05:39 84 18 152/72 08/07/24 05:00 98.0 97 98.0 08/06/24 20:00 Room Air* 0 21 Physical Exam Head eyes ears nose and throat exam eyes are nonicteric conjunctiva is pink neck was supple no JVD no lymphadenopathy no carotid bruits lungs are clear to auscultation heart was regular rate and rhythm abdomen is soft nontender with no pulsatile abdominal mass or bruits lower extremities. She has a contracted lower extremities she has multiple small wounds on her anterior shins bilaterally. She has warm perfused feet bilaterally contracted knees and ankles. Pulse exam weakly palpable pedal pulses palpable femoral pulses bilaterally. Labs/Diagnostic Data Labs Test 08/06/24 05:44 08/05/24 07:15 08/05/24 00:39 08/04/24 16:32 Range/Units White Blood Count 3.8 L 4.4-10.8 10^3/uL Red Blood Count 3.35 L 4.0-5.20 10^6/uL Hemoglobin 8.2 L 12.2-16.2 g/dL Hematocrit 25.8 L 36.0-46.0 % Mean Corpuscular Volume 77.2 L 80.0-100.0 fL Mean Corpuscular Hemoglobin 24.4 L 28.0-32.0 pg Mean Corpuscular Hemoglobin Concent 31.7 L 32.0-36.0 g/dL Red Cell Distribution Width 18.9 H 11.8-14.3 % Platelet Count 334 140-450 10^3/uL Mean Platelet Volume 8.6 6.9-10.8 fL Neutrophils (%) (Auto) 51.3 37.0-80.0 % Lymphocytes (%) (Auto) 25.0 10.0-50.0 % Monocytes (%) (Auto) 10.8 0.0-12.0 % Eosinophils (%) (Auto) 11.6 H 0.0-7.0 % Basophils (%) (Auto) 1.3 0.0-2.0 % Neutrophils # (Auto) 2.0 1.6-8.6 10 ^3/uL Lymphocytes # (Auto) 1.0 0.4-5.4 10 ^3/uL Monocytes # (Auto) 0.4 0-1.3 10 ^3/uL Eosinophils # (Auto) 0.4 0-0.8 10 ^3/uL Basophils # (Auto) 0 0-0.2 10 ^3/uL Nucleated Red Blood Cells 0.1 % Platelet Estimate Adequate Hypochromasia (manual) Slight Microcytosis Slight Sodium Level 137 136-145 mmol/L Potassium Level 4.0 3.5-5.1 mmol/L Chloride Level 108 H 98-107 mmol/L Carbon Dioxide Level 22 20-31 mmol/L Anion Gap 7 5-15 Blood Urea Nitrogen 16 9-23 mg/dL Creatinine 0.84 0.550-1.02 mg/dL Glomerular Filtration Rate Calc 75 >90 mL/min BUN/Creatinine Ratio 19.0 10.0-20.0 Serum Glucose 100 74-106 mg/dL Calcium Level 9.5 8.7-10.4 mg/dL Ferritin 6.7 L 10-291 ng/mL Total Bilirubin 0.4 0.2-1.0 mg/dL Aspartate Amino Transferase (AST) 10 L 13-40 U/L Alanine Aminotransferase (ALT) < 9 7-40 U/L Alkaline Phosphatase 109 46-116 U/L Total Protein 6.7 5.7-8.2 g/dL Albumin 3.7 3.2-4.8 g/dL Urine Color Light-yellow Yellow Urine Clarity Turbid H Clear Urine pH 5.5 5.0-9.0 Urine Specific [place] 1.017 1.001-1.035 Urine Protein Negative Negative Urine Ketones Negative Negative Urine Blood Negative Negative /uL Urine Nitrite Negative Negative Urine Bilirubin Negative Negative Urine Urobilinogen Normal Negative mg/dL Urine Leukocyte Esterase Negative Negative /uL Urine RBC 1 0 - 4 /hpf Urine Microscopic WBC 1 0-5 /HPF Urine Squamous Epithelial Cells Few <5 /hpf Urine Bacteria None seen None Seen /hpf Urine Mucus Few None Seen Urine Glucose Normal Normal mg/dL Urine Hyaline Casts Few 0 - 2 /lpf Test 08/04/24 15:37 08/04/24 10:44 Range/Units Prothrombin Time 10.1 9.3-11.8 sec Prothrombin Time INR 0.95 0.9-1.15 Activated Partial Thromboplast Time 24.3 L 24.5-34.5 SEC Differential Total Cells Counted 100.0 100 Neutrophils % (Manual) 67 37.0-80.0 Band Neutrophils % (Manual) 0 Lymphocytes % (Manual) 22 10.0-50.0 Monocytes % (Manual) 2 0-12 Eosinophils % (Manual) 9 H 0-7 Basophils % (Manual) 0 0.0-2.0 Metamyelocytes % (manual) 0 Myelocytes % (Manual) 0 Promyelocytes % (Manual) 0 Blast Cells % (Manual) 0 Reactive Lymphocytes 0 Anisocytosis (manual) Slight Ovalocytes Few Reticulocyte Count (auto) 1.25 0.5-1.5 % Haptoglobin 204 37-355 mg/dL Iron Level 18 L 50-170 ug/dL Total Iron Binding Capacity 340 250-425 ug/dL Percent Iron Saturation 5.3 L 15-50 % Microbiology Date/Time Source Procedure Growth Status 08/04/24 20:45 Nose MRSA Screen - Final Complete REASON: R/O ARTERIAL OCCLUSION ORDER NUMBER(s): [id number], ACCESSION NUMBER(s): [id number] Right Lower Extremity Arterial Duplex Clinical History: R/O ARTERIAL OCCLUSION Comparison: None Technique: Duplex Doppler evaluation including color Doppler and spectral/pulsed waveform analysis of the lower extremity arteries was performed. 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 IMPRESSION: Greater than 75% stenosis of the right mid superficial femoral artery based on peak systolic velocity criteria. Nonvisualization of flow in the right posterior tibial artery. Assessment Right SFA peripheral vascular disease moderate. Ultrasound findings consistent with 75% SFA disease. Patient is bed-bound and contracted no indications for any peripheral vascular interventions at this time. Continue to control medical risk factors. Plan/Recommendation Right SFA peripheral vascular disease moderate. Ultrasound findings consistent with 75% SFA disease. Patient is bed-bound and contracted no indications for any peripheral vascular interventions at this time. Continue to control medical risk factors. Plan discussed with: Patient MISAEL ERVIN Jr., MD Aug 07, 2024 07:40
--- NOTE | 2024-08-07 08:47 | DVHPN2 ---
Reviewed: Care Plan, H&P, Labs, Medications, Previous Orders, Radiology Changes from previous H/P or p: No Changes Eyes: No Pain, No Vision change, No Conjunctivae inflammation, No Eyelid inflammation, No Other, No Redness ENT: No Ear pain, No Ear discharge, No Nose pain, No Nose discharge, No Nose congestion, No Mouth pain, No Mouth swelling, No Throat pain, No Throat swelling, No Other Cardiovascular: No Chest Pain, No Palpitations, No Orthopnea, No Paroxysmal Noc. Dyspnea, No Edema, No Lt Headedness, No Other Respiratory: No Cough, No Dry, No Shortness of breath, No SOB with excertion, No Wheezing, No Hemoptysis, No Pleuritic Pain, No Sputum, No Other Gastrointestinal: No Nausea, No Vomiting, No Abdominal Pain, No Diarrhea, No Constipation, No Melena, No Hematochezia, No Other Genitourinary: No Dysuria, No Frequency, No Incontinence, No Hematuria, No Retention, No Other Musculoskeletal: No other, No neck pain, No shoulder pain, No arm pain, No back pain, No hand pain; leg pain; No foot pain Skin: Rash Objective Vitals Vital Signs Date Time Temp Pulse Resp B/P (MAP) Pulse Ox O2 Delivery O2 Flow Rate FiO2 08/07/24 08:00 88 16 164/59 08/07/24 05:00 98.0 97 98.0 08/06/24 20:00 Room Air* 0 21 Intake/Output Intake and Output 08/07/24 07:00 Intake Total 2550 ml Balance 2550 ml Intake Oral 1550 ml IV Total 1000 ml # Voids 5 Medications Current Medications Medications Dose Ordered Sig/Bebo Route Start Time Stop Time Status Last Admin Dose Admin Acetaminophen 650 mg Q6HP PRN PO 08/04/24 14:45 Hold Ondansetron HCl 4 mg Q4HP PRN IV 08/04/24 14:45 Acetaminophen/ Hydrocodone Bitart 1 tab Q6HPRN PRN PO 08/04/24 15:15 Hold 08/04/24 17:37 1 TAB Morphine Sulfate 1 mg Q6HP PRN IV 08/04/24 15:15 08/07/24 05:39 1 MG Amlodipine Besylate 10 mg DAILY PO 08/05/24 10:00 08/05/24 11:04 10 MG Lisinopril 20 mg DAILY PO 08/05/24 10:00 08/05/24 11:05 20 MG Cyanocobalamin 1,000 mcg DAILY SUBCUT 08/05/24 10:00 Hold Hydralazine HCl 10 mg Q4HP PRN IV 08/04/24 18:45 08/05/24 01:31 10 MG Pantoprazole Sodium 40 mg DAILY@0600 PO 08/06/24 06:00 08/07/24 05:39 40 MG Diphenhydramine HCl 25 mg Q6HP PRN PO 08/05/24 14:30 08/07/24 07:02 25 MG Sodium Chloride 1,000 ml @ 125 mls/hr Q8H IV 08/06/24 10:15 08/06/24 18:35 125 MLS/HR Bacitracin 1 applic BID TOP 08/06/24 22:00 08/06/24 20:47 1 APPLIC Laboratory Results Laboratory Tests 08/06/24 05:44 Urinalysis Test 08/04/24 16:32 08/05/24 00:39 Urine Hyaline Casts Few /lpf (0 - 2) Urine Color Light-yellow (Yellow) Urine Clarity Turbid (Clear) H Urine pH 5.5 (5.0-9.0) Urine Specific [place] 1.017 (1.001-1.035) Urine Protein Negative (Negative) Urine Ketones Negative (Negative) Urine Blood Negative /uL (Negative) Urine Nitrite Negative (Negative) Urine Bilirubin Negative (Negative) Urine Urobilinogen Normal mg/dL (Negative) Urine Leukocyte Esterase Negative /uL (Negative) Urine RBC 1 /hpf (0 - 4) Urine Microscopic WBC 1 /HPF (0-5) Urine Squamous Epithelial Cells Few /hpf (<5) Urine Bacteria None seen /hpf (None Seen) Urine Mucus Few (None Seen) Urine Glucose Normal mg/dL (Normal) Microbiology Microbiology Date/Time Source Procedure Growth Status 08/04/24 20:45 Nose MRSA Screen - Final Complete Labs and/or images reviewed: Labs reviewed by me, Image(s) reviewed by me Assessment/Plan Assessment/Plan Severe Pain right lower extremity secondary to more than 75 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 Emerson appreciated, not a candidate for vascular intervention secondary to patient being bedridden. History of stents right lower extremity Severe symptomatic anemia hemoglobin 6 .9:improved to 8.6 after 1 unit RBC transfusion, GI consult for Dr. Ira Mancini appreciated Hypertension: Amlodipine lisinopril History of [place] Large ventral hernia Coronary artery disease status post stents x 4 TIA Severe rheumatoid arthritis Psoriasis History of rectal polyp status post surgery Possible EGD today Time spent 45 minutes Advanced care planning time 20 minutes Patient is full code Discussed diagnosis and management with the patient's daughter Halina [phone] at bedside Patient was under the care of grandson in the past and now under the care of her daughter for the last one month. Plan discussed with: Patient My Orders Orders - DAVID CORREA MD Procedure Category Date Status Time Sodium Chloride 0.9% PHA 08/06/24 In Process 10:15 Bacitracin Ointment PHA 08/06/24 In Process 22:00 Date of Service: Aug 07, 2024 Billing Provider: DAVID CORREA MD Common Visit Codes: [id number] INP/OBS CARE(HIGH) Secondary Visit Codes: [id number] CARE PLAN 30 MINUTES DAVID CORREA MD Aug 07, 2024 08:47
[2024-08-07] MEDS: LACTULOSE 20Gm/30ML SOLN PO ONE (09:51)
[2024-08-07 11:53] LABS: Basophils # (auto) 0 10 ^3/uL (0-0.2); Eosinophils # (auto) 0.5 10 ^3/uL (0-0.8); Hematocrit 27.8 % (36.0-46.0); Hemoglobin 8.7 g/dL (12.2-16.2); Lymphocytes # (auto) 0.6 10 ^3/uL (0.4-5.4); Mean Corpuscular Hemoglobin 24.1 pg (28.0-32.0); Mean Corpuscular Hgb Conc. 31.3 g/dL (32.0-36.0); Monocytes # (auto) 0.3 10 ^3/uL (0-1.3); Neutrophils # (auto) 1.7 10 ^3/uL (1.6-8.6); White Blood Cell 3.1 10^3/uL (4.4-10.8)
--- NOTE | 2024-08-07 11:55 | DVH ---
CHEST RADIOGRAPH Indication: pre-op eval, pain Technique: Single frontal view of the chest was obtained Comparison: None FINDINGS: Lines and Tubes: None Lungs: 25mm right upper lobe possible calcified opacity. CT suggested Pleura: No effusion. No pneumothorax. Cardiomediastinal contours: Unremarkable Bones: No acute osseous abnormality. IMPRESSION: 25mm right upper lobe possible calcified opacity. CT suggested
[2024-08-07 11:58] LABS: Eosinophils % (auto) 14.7 % (0.0-7.0); Lymphocytes % (auto) 20.7 % (10.0-50.0); Monocytes % (auto) 10.2 % (0.0-12.0); Neutrophils % (auto) 53.4 % (37.0-80.0); Nucleated Red Blood Cells % 0.2 %; Platelet Count (auto) 328 10^3/uL (140-450); Red Blood Cells 3.61 10^6/uL (4.0-5.20); Red Cell Distribution Width 19.3 % (11.8-14.3)
[2024-08-07] MEDS ORDERED: fentaNYL CITRATE 100 MCG/2 ML VL ONE (13:21)
--- NOTE | 2024-08-07 14:26 | DVHOP2 ---
Operative Report DATE OF OPERATION: 08/07/24 PROCEDURE: Upper Endoscopy with biopsy. PREOPERATIVE INDICATION: The patient is a 69 -year-old female undergoing endoscopy for anemia POSTOPERATIVE DIAGNOSES: 1. Large 6 cm sliding-type hiatal hernia with some erosions within the hiatal hernia sac 2. Mild antral gastritis with pre-pyloric antral gastric erosions otherwise normal examination up to the 2nd and 3rd part of the duodenum PROCEDURE PERFORMED BY: Basil Mancini GI NURSE: Kyle SCOPE: Olympus videoendoscope. ASA CLASS: 3. PREOPERATIVE MEDICATIONS: MAC sedation, Dr. Unique Luevano administered moderate sedation throughout this _7_ minutes procedure. An independent trained observer pushed medications at my direction, and monitored the patient's level of consciousness and physiological status throughout. PROCEDURE IN DETAIL: After obtaining an informed consent, the patient was placed on left lateral decubitus position. The patient was then sedated with the above medications. A bite block was placed between her teeth. The endoscope was then passed through the oropharynx, into the esophagus, and through the stomach and pylorus up to the second and third part of the duodenum. The endoscope was then withdrawn. The 2nd and 3rd part of the duodenal were normal. Duodenal bulb showed mild duodenitis. The pre-pyloric area and antrum showed [id number] gastritis with some erosions. On retroflexion the fundus cardia and angularis were normal hiatal hernia was noted. The endoscope was then withdrawn into the distal esophagus where she had a 6 cm sliding-type hiatal hernia. There were some Anand's erosions within the hiatal hernia sac. She had a slightly irregular squamocolumnar junction but no significant esophagitis The remaining distal and proximal esophagus and oropharynx were unremarkable except for tertiary contractions The patient tolerated the procedure well without difficulty. COMPLICATIONS : None SPECIMENS: Duodenal biopsy Gastric biopsies DISPOSITION: Transfer back to the floor Stable PLAN: 1. Await for biopsy result 2. Will place pt on Protonix 40 mg IV daily 3. Carafate 1 g p.o. twice a day 4. DC aspirin NSAIDs smoking alcohol 5. Maintained on iron pills and IV iron supplements 6. Outpatient follow up with GI Services for any further GI workup BASIL MANCINI MD Aug 07, 2024 14:26
[2024-08-07] MEDS: FLEET ENEMA(ADULT) 135 ML PR ONE (14:30)
[2024-08-07] MEDS: POLYETHYLENE GLYCOL 17 GM PWDR PO ONE (15:27)
[2024-08-07] MEDS: SUCRALFATE 1 GM/10 ML ORAL SUSP PO SCH (21:26)
[2024-08-08] VITALS (9 sets, daily range): BP systolic 97–154; BP diastolic 59–76; PULSE 80–106; RESP 13–20; TEMP 97.6–98; O2SAT 95–97
[2024-08-08 06:54] LABS: Basophils # (auto) 0 10 ^3/uL (0-0.2); Eosinophils # (auto) 0.4 10 ^3/uL (0-0.8); Hemoglobin 8.3 g/dL (12.2-16.2); Lymphocytes # (auto) 0.8 10 ^3/uL (0.4-5.4); Mean Corpuscular Hemoglobin 24.1 pg (28.0-32.0); Monocytes # (auto) 0.3 10 ^3/uL (0-1.3); Neutrophils # (auto) 1.6 10 ^3/uL (1.6-8.6); Nucleated Red Blood Cells % 0.1 %; Red Blood Cells 3.47 10^6/uL (4.0-5.20)
[2024-08-08 07:02] LABS: Basophils % (auto) 1.1 % (0.0-2.0); Eosinophils % (auto) 12.3 % (0.0-7.0); Hematocrit 26.5 % (36.0-46.0); Lymphocytes % (auto) 24.9 % (10.0-50.0); Mean Corpuscular Hgb Conc. 31.5 g/dL (32.0-36.0); Mean Corpuscular Volume 76.4 fL (80.0-100.0); Neutrophils % (auto) 51.7 % (37.0-80.0); Platelet Count (auto) 306 10^3/uL (140-450); Red Cell Distribution Width 19.4 % (11.8-14.3); White Blood Cell 3.2 10^3/uL (4.4-10.8)
--- NOTE | 2024-08-08 10:51 | DVHPN2 ---
Reviewed: Care Plan, H&P, Labs, Medications, Previous Orders, Radiology Changes from previous H/P or p: No Changes Eyes: No Pain, No Vision change, No Conjunctivae inflammation, No Eyelid inflammation, No Other, No Redness ENT: No Ear pain, No Ear discharge, No Nose pain, No Nose discharge, No Nose congestion, No Mouth pain, No Mouth swelling, No Throat pain, No Throat swelling, No Other Cardiovascular: No Chest Pain, No Palpitations, No Orthopnea, No Paroxysmal Noc. Dyspnea, No Edema, No Lt Headedness, No Other Respiratory: No Cough, No Dry, No Shortness of breath, No SOB with excertion, No Wheezing, No Hemoptysis, No Pleuritic Pain, No Sputum, No Other Gastrointestinal: No Nausea, No Vomiting, No Abdominal Pain, No Diarrhea, No Constipation, No Melena, No Hematochezia, No Other Genitourinary: No Dysuria, No Frequency, No Incontinence, No Hematuria, No Retention, No Other Musculoskeletal: No other, No neck pain, No shoulder pain, No arm pain, No back pain, No hand pain; leg pain; No foot pain Skin: Rash Objective Vitals Vital Signs Date Time Temp Pulse Resp B/P (MAP) Pulse Ox O2 Delivery O2 Flow Rate FiO2 08/08/24 08:58 89 20 143/62 08/08/24 04:16 98.0 95 98.0 08/07/24 20:00 Room Air* 0 21 Intake/Output Intake and Output 08/08/24 07:00 Intake Total 1525 ml Output Total 0 ml Balance 1525 ml Intake Oral 1050 ml IV Total 475 ml Stool Total 0 ml # Voids 4 # Bowel Movements 1 Medications Current Medications Medications Dose Ordered Sig/Bebo Route Start Time Stop Time Status Last Admin Dose Admin Acetaminophen 650 mg Q6HP PRN PO 08/04/24 14:45 Hold Ondansetron HCl 4 mg Q4HP PRN IV 08/04/24 14:45 Acetaminophen/ Hydrocodone Bitart 1 tab Q6HPRN PRN PO 08/04/24 15:15 Hold 08/04/24 17:37 1 TAB Morphine Sulfate 1 mg Q6HP PRN IV 08/04/24 15:15 08/08/24 08:58 1 MG Amlodipine Besylate 10 mg DAILY PO 08/05/24 10:00 08/07/24 08:47 10 MG Lisinopril 20 mg DAILY PO 08/05/24 10:00 08/07/24 08:46 20 MG Cyanocobalamin 1,000 mcg DAILY SUBCUT 08/05/24 10:00 Hold Hydralazine HCl 10 mg Q4HP PRN IV 08/04/24 18:45 08/08/24 04:26 10 MG Pantoprazole Sodium 40 mg DAILY@0600 PO 08/06/24 06:00 08/08/24 06:14 40 MG Diphenhydramine HCl 25 mg Q6HP PRN PO 08/05/24 14:30 08/07/24 07:02 25 MG Sodium Chloride 1,000 ml @ 125 mls/hr Q8H IV 08/06/24 10:15 08/08/24 05:04 125 MLS/HR Bacitracin 1 applic BID TOP 08/06/24 22:00 08/07/24 21:26 1 APPLIC Lactulose 30 ml BID PO 08/08/24 10:00 Sucralfate 1 gm BID@0600,2200 PO 08/07/24 22:00 08/08/24 06:14 1 GM Iron Sucrose 110 ml @ 110 mls/hr DAILY@1200 IV 08/08/24 12:00 08/12/24 12:59 Laboratory Results Laboratory Tests 08/06/24 05:44 08/08/24 06:33 Urinalysis Test 08/04/24 16:32 08/05/24 00:39 Urine Hyaline Casts Few /lpf (0 - 2) Urine Color Light-yellow (Yellow) Urine Clarity Turbid (Clear) H Urine pH 5.5 (5.0-9.0) Urine Specific [place] 1.017 (1.001-1.035) Urine Protein Negative (Negative) Urine Ketones Negative (Negative) Urine Blood Negative /uL (Negative) Urine Nitrite Negative (Negative) Urine Bilirubin Negative (Negative) Urine Urobilinogen Normal mg/dL (Negative) Urine Leukocyte Esterase Negative /uL (Negative) Urine RBC 1 /hpf (0 - 4) Urine Microscopic WBC 1 /HPF (0-5) Urine Squamous Epithelial Cells Few /hpf (<5) Urine Bacteria None seen /hpf (None Seen) Urine Mucus Few (None Seen) Urine Glucose Normal mg/dL (Normal) Microbiology Microbiology Date/Time Source Procedure Growth Status 08/04/24 20:45 Nose MRSA Screen - Final Complete Labs and/or images reviewed: Labs reviewed by me, Image(s) reviewed by me Assessment/Plan Assessment/Plan Severe Pain right lower extremity secondary to more than 75 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 Emerson appreciated, not a candidate for vascular intervention secondary to patient being bedridden. Will start on gabapentin 400 mg PO TID History of stents right lower extremity Severe symptomatic anemia hemoglobin 6 .9:improved to 8.6 after 1 unit RBC transfusion, GI consult for Dr. Ira Mancini appreciated Mild gastritis with gastric erosions by EGD by Dr. Ira Mancini on 08/07/2024 Hypertension: Amlodipine lisinopril History of [place] Large ventral hernia Coronary artery disease status post stents x 4 TIA Severe rheumatoid arthritis Psoriasis History of rectal polyp status post surgery Time spent 45 minutes Advanced care planning time 20 minutes Patient is full code Discussed diagnosis and management with the patient's daughter Halina [phone] at bedside Patient was under the care of grandson in the past and now under the care of her daughter for the last one month. Plan discussed with: Patient Date of Service: Aug 08, 2024 Billing Provider: DAVID CORREA MD Common Visit Codes: [id number] INP/OBS CARE(HIGH) DAVID CORREA MD Aug 08, 2024 10:51
[2024-08-08] MEDS: LACTULOSE 20Gm/30ML SOLN PO SCH (11:29)
[2024-08-08] MEDS: GABAPENTIN 300 MG CAP PO SCH (13:35)
[2024-08-08] MEDS: IRON SUCROSE COMPLEX 110 ML IV SCH (13:38)
--- NOTE | 2024-08-08 17:13 | DVHPN2 ---
Progress Note Date Seen: Aug 08, 2024 Resident Creating Document: MEKHI CANTRELL RESIDENT Medical Necessity Reason Pt with a Central, PICC or Fol: No Subjective Review of Systems Patient was seen and examined on the bedside. She is alert oriented x3. Complaints of abdominal pain and mentioned having bowel movements 2 to 3 times since yesterday. No other active complaint. Objective vital signs Vital Sign Date Time Temp Pulse Resp B/P (MAP) Pulse Ox O2 Delivery O2 Flow Rate FiO2 08/08/24 15:52 88 18 133/66 08/08/24 13:00 98.0 97 98.0 08/08/24 08:10 Room Air* 0 21 Total Intake and Output 08/07/24 08/07/24 08/08/24 15:00 23:00 07:00 Intake Total 25 ml 1350 ml 150 ml Output Total 0 ml Balance 25 ml 1350 ml 150 ml medications Current Medications Medications Dose Ordered Sig/Bebo Route Start Time Stop Time Status Last Admin Dose Admin Acetaminophen 650 mg Q6HP PRN PO 08/04/24 14:45 Hold Ondansetron HCl 4 mg Q4HP PRN IV 08/04/24 14:45 Acetaminophen/ Hydrocodone Bitart 1 tab Q6HPRN PRN PO 08/04/24 15:15 Hold 08/04/24 17:37 1 TAB Morphine Sulfate 1 mg Q6HP PRN IV 08/04/24 15:15 08/08/24 15:52 1 MG Amlodipine Besylate 10 mg DAILY PO 08/05/24 10:00 08/08/24 11:31 10 MG Lisinopril 20 mg DAILY PO 08/05/24 10:00 08/08/24 11:31 20 MG Cyanocobalamin 1,000 mcg DAILY SUBCUT 08/05/24 10:00 Hold Hydralazine HCl 10 mg Q4HP PRN IV 08/04/24 18:45 08/08/24 04:26 10 MG Pantoprazole Sodium 40 mg DAILY@0600 PO 08/06/24 06:00 08/08/24 06:14 40 MG Diphenhydramine HCl 25 mg Q6HP PRN PO 08/05/24 14:30 08/07/24 07:02 25 MG Sodium Chloride 1,000 ml @ 125 mls/hr Q8H IV 08/06/24 10:15 08/08/24 05:04 125 MLS/HR Bacitracin 1 applic BID TOP 08/06/24 22:00 08/08/24 11:29 1 APPLIC Lactulose 30 ml BID PO 08/08/24 10:00 08/08/24 11:29 30 ML Sucralfate 1 gm BID@0600,2200 PO 08/07/24 22:00 08/08/24 06:14 1 GM Iron Sucrose 110 ml @ 110 mls/hr DAILY@1200 IV 08/08/24 12:00 08/12/24 12:59 08/08/24 13:38 110 MLS/HR Gabapentin 300 mg TID PO 08/08/24 14:00 08/08/24 13:35 300 MG Examination Physical examination: General Appearance: Alert, Oriented X3, Cooperative, No acute distress HEENT: Atraumatic, PERRLA, EOMI, Mucous membrane moist/pink Respiratory: Clear to auscultation, Normal air movement Cardiovascular: Regular rate, Normal S1, Normal S2, No murmurs, no chest wall tenderness Abdominal: Large ventral hernia, Normal bowel sounds, Soft, No hepatospenomegaly. Extremities: No clubbing, No cyanosis, No edema, Normal pulses, No tenderness/swelling Skin: No rashes, No breakdown, No significant lesion Neuro: Normal gait, Normal speech, Strength at 5/5 X4 ext, Normal tone, Sensation intact, grossly intact cranial nerves. Psych/Mental Status: Mental status NL, Mood NL laboratory and microbiology Laboratory Tests 08/08/24 06:33 08/06/24 05:44 Test 08/06/24 05:44 Range/Units Serum Glucose 100 74-106 mg/dL Microbiology Date/Time Source Procedure Growth Status 08/04/24 20:45 Nose MRSA Screen - Final Complete Labs and/or images reviewed: Labs reviewed by me, Image(s) reviewed by me Problem List/Assessment/Plan Problem List/Assessment/Plan Assessment: # Possible upper versus lower GI bleeding # Microcytic hypochromic anaemia # Large ventral hernia # CAD with s/p stentX4 # Possible peripheral arterial disease # History of rectal polyp , s/p surgery # Severe rheumatoid arthritis and psoriasis Patient underwent EGD on 08/07/24 demonstrated Large 6 cm sliding-type hiatal hernia with some erosions within the hiatal hernia sac and Mild antral gastritis with pre-pyloric antral gastric erosions otherwise normal examination up to the 2nd and 3rd part of the duodenum. Plan: - 1 units of PRBC given and H&H is stable - Protonix 40 mg p.o. daily, carafate 1 gm po bid - IV iron daily - CT abdomen pelvis without contrast ruled out incarcerated/strangulated ventral hernia - Pending FOBT - Recommended outpatient elective colonoscopy. - Recommended outpatient GI follow up after discharge. Plan discussed with Dr. Mancini Plan discussed with: Patient, Other Dietary Evaluation Review Comments: Iron supplementation-iron sucrose per order, continue 2 GNa Lo fat Lo Cholesterol diet Expected Outcomes/Goals: normal blood counts, improved cardiac health. MEKHI CANTRELL RESIDENT Aug 08, 2024 17:13
[2024-08-09] VITALS (8 sets, daily range): BP systolic 109–137; BP diastolic 45–72; PULSE 77–99; RESP 12–18; TEMP 97.6–98.7; O2SAT 95–98
[2024-08-09 07:08] LABS: Mean Corpuscular Hgb Conc. 31.2 g/dL (32.0-36.0); Red Blood Cells 3.49 10^6/uL (4.0-5.20); White Blood Cell 3.6 10^3/uL (4.4-10.8)
[2024-08-09 07:10] LABS: Hematocrit 26.8 % (36.0-46.0); Hemoglobin 8.3 g/dL (12.2-16.2); Mean Corpuscular Hemoglobin 23.9 pg (28.0-32.0); Mean Corpuscular Volume 76.7 fL (80.0-100.0); Platelet Count (auto) 294 10^3/uL (140-450); Red Cell Distribution Width 19.5 % (11.8-14.3)
[2024-08-09 07:19] LABS: Basophils % (manual) 0 (0.0-2.0); Blast Cells 0; Metamyelocytes % 0; Myelocytes % 0; Promyelocytes % 0; Reactive Lymphocytes 0
[2024-08-09 07:45] LABS: Band Neutrophils % (manual) 1; Eosinophils % (manual) 17 (0-7); Lymphocytes % (manual) 24 (10.0-50.0); Monocytes % (manual) 4 (0-12)
[2024-08-09 07:46] LABS: Platelet Estimate Adequate
--- NOTE | 2024-08-09 08:23 | ECG ---
[facility] Test Date: 2024-08-07 Test Time: 13:37:43 Pat Name: SELMA COFFEY Department: Room: 0208T Gender: F [employer]ger: YESSY : 1955 Requested By: BASIL HARDIN Order Number: [id number] Reading MD: Frederick Das Measurements Intervals [place] Rate: 91 P: 56 UT: 124 QRS: 38 QRSD: 80 T: 77 QT: 372 QTc: 457 Interpretive Statements Normal sinus rhythm Nonspecific T wave abnormality Electronically Signed On 08-10-2024 20:53:23 PST by Frederick Das Please click the below link to view image of tracing.
--- NOTE | 2024-08-09 08:50 | DVHPN2 ---
Reviewed: Care Plan, H&P, Labs, Medications, Previous Orders, Radiology Changes from previous H/P or p: No Changes Eyes: No Pain, No Vision change, No Conjunctivae inflammation, No Eyelid inflammation, No Other, No Redness ENT: No Ear pain, No Ear discharge, No Nose pain, No Nose discharge, No Nose congestion, No Mouth pain, No Mouth swelling, No Throat pain, No Throat swelling, No Other Cardiovascular: No Chest Pain, No Palpitations, No Orthopnea, No Paroxysmal Noc. Dyspnea, No Edema, No Lt Headedness, No Other Respiratory: No Cough, No Dry, No Shortness of breath, No SOB with excertion, No Wheezing, No Hemoptysis, No Pleuritic Pain, No Sputum, No Other Gastrointestinal: No Nausea, No Vomiting, No Abdominal Pain, No Diarrhea, No Constipation, No Melena, No Hematochezia, No Other Genitourinary: No Dysuria, No Frequency, No Incontinence, No Hematuria, No Retention, No Other Musculoskeletal: No other, No neck pain, No shoulder pain, No arm pain, No back pain, No hand pain; leg pain; No foot pain Skin: Rash Objective Vitals Vital Signs Date Time Temp Pulse Resp B/P (MAP) Pulse Ox O2 Delivery O2 Flow Rate FiO2 08/09/24 04:44 97.7 79 13 133/56 (81) 97 97.7 08/08/24 20:00 Room Air* 0 21 Intake/Output Intake and Output 08/09/24 07:00 Intake Total 1010 ml Balance 1010 ml Intake Oral 600 ml IV Total 410 ml # Voids 3 Medications Current Medications Medications Dose Ordered Sig/Bebo Route Start Time Stop Time Status Last Admin Dose Admin Acetaminophen 650 mg Q6HP PRN PO 08/04/24 14:45 Hold Ondansetron HCl 4 mg Q4HP PRN IV 08/04/24 14:45 Acetaminophen/ Hydrocodone Bitart 1 tab Q6HPRN PRN PO 08/04/24 15:15 Hold 08/04/24 17:37 1 TAB Morphine Sulfate 1 mg Q6HP PRN IV 08/04/24 15:15 08/08/24 22:52 1 MG Amlodipine Besylate 10 mg DAILY PO 08/05/24 10:00 08/08/24 11:31 10 MG Lisinopril 20 mg DAILY PO 08/05/24 10:00 08/08/24 11:31 20 MG Cyanocobalamin 1,000 mcg DAILY SUBCUT 08/05/24 10:00 Hold Hydralazine HCl 10 mg Q4HP PRN IV 08/04/24 18:45 08/08/24 04:26 10 MG Pantoprazole Sodium 40 mg DAILY@0600 PO 08/06/24 06:00 08/09/24 05:32 40 MG Diphenhydramine HCl 25 mg Q6HP PRN PO 08/05/24 14:30 08/09/24 03:58 25 MG Sodium Chloride 1,000 ml @ 125 mls/hr Q8H IV 08/06/24 10:15 08/08/24 05:04 125 MLS/HR Bacitracin 1 applic BID TOP 08/06/24 22:00 08/08/24 21:47 1 APPLIC Lactulose 30 ml BID PO 08/08/24 10:00 08/08/24 11:29 30 ML Sucralfate 1 gm BID@0600,2200 PO 08/07/24 22:00 08/09/24 05:32 1 GM Iron Sucrose 110 ml @ 110 mls/hr DAILY@1200 IV 08/08/24 12:00 08/12/24 12:59 08/08/24 13:38 110 MLS/HR Gabapentin 300 mg TID PO 08/08/24 14:00 08/09/24 05:32 300 MG Laboratory Results Laboratory Tests 08/06/24 05:44 08/09/24 06:05 Urinalysis Test 08/04/24 16:32 08/05/24 00:39 Urine Hyaline Casts Few /lpf (0 - 2) Urine Color Light-yellow (Yellow) Urine Clarity Turbid (Clear) H Urine pH 5.5 (5.0-9.0) Urine Specific [place] 1.017 (1.001-1.035) Urine Protein Negative (Negative) Urine Ketones Negative (Negative) Urine Blood Negative /uL (Negative) Urine Nitrite Negative (Negative) Urine Bilirubin Negative (Negative) Urine Urobilinogen Normal mg/dL (Negative) Urine Leukocyte Esterase Negative /uL (Negative) Urine RBC 1 /hpf (0 - 4) Urine Microscopic WBC 1 /HPF (0-5) Urine Squamous Epithelial Cells Few /hpf (<5) Urine Bacteria None seen /hpf (None Seen) Urine Mucus Few (None Seen) Urine Glucose Normal mg/dL (Normal) Microbiology Microbiology Date/Time Source Procedure Growth Status 08/04/24 20:45 Nose MRSA Screen - Final Complete Labs and/or images reviewed: Labs reviewed by me, Image(s) reviewed by me Assessment/Plan Assessment/Plan Severe Pain right lower extremity secondary to more than 75 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 Emerson appreciated, not a candidate for vascular intervention secondary to patient being bedridden. Will start on gabapentin 400 mg PO TID History of stents right lower extremity Severe symptomatic anemia hemoglobin 6 .9:improved to 8.3 after 1 unit RBC transfusion, stable GI consult for Dr. Ira Mancini appreciated Mild gastritis with gastric erosions by EGD by Dr. Ira Mancini on 08/07/2024, GI recommended outpatient colonoscopy Hypertension: Amlodipine lisinopril History of [place] Large ventral hernia Coronary artery disease status post stents x 4 TIA Severe rheumatoid arthritis Psoriasis History of rectal polyp status post surgery Time spent 45 minutes Advanced care planning time 20 minutes Patient is full code Discussed diagnosis and management with the patient's daughter Halina [phone] at bedside Patient was under the care of grandson in the past and now under the care of her daughter for the last one month. Plan discussed with: Patient My Orders Orders - DAVID CORREA MD Procedure Category Date Status Time Pt Request For Service PT 08/08/24 Logged 10:51 Gabapentin Capsule PHA 08/08/24 In Process (Neurontin Capsule) 14:00 Pharmacy [facility] 08/08/24 In Process Clarification: 12:56 Complete Blood Count LAB 08/10/24 Verified 07:00 Complete Blood Count LAB 08/11/24 Verified 07:00 Date of Service: Aug 09, 2024 Billing Provider: DAVID CORREA MD Common Visit Codes: [id number] INP/OBS CARE(HIGH) DAVID CORREA MD Aug 09, 2024 08:50
--- NOTE | 2024-08-09 14:08 | DVHPN2 ---
Progress Note Date Seen: Aug 09, 2024 Resident Creating Document: MEKHI CANTRELL RESIDENT Medical Necessity Reason Pt with a Central, PICC or Fol: No Subjective Review of Systems Patient was seen and examined on the bedside. She is alert oriented x3. Mentioned abdominal pain getting better and had few episodes of bowel movements since yesterday. Objective vital signs Vital Sign Date Time Temp Pulse Resp B/P (MAP) Pulse Ox O2 Delivery O2 Flow Rate FiO2 08/09/24 13:09 97.6 85 16 128/47 (74) 98 97.6 08/09/24 08:00 Room Air* 0 21 Total Intake and Output 08/08/24 08/08/24 08/09/24 15:00 23:00 07:00 Intake Total 110 ml 500 ml 400 ml Balance 110 ml 500 ml 400 ml medications Current Medications Medications Dose Ordered Sig/Bebo Route Start Time Stop Time Status Last Admin Dose Admin Acetaminophen 650 mg Q6HP PRN PO 08/04/24 14:45 Hold Ondansetron HCl 4 mg Q4HP PRN IV 08/04/24 14:45 Acetaminophen/ Hydrocodone Bitart 1 tab Q6HPRN PRN PO 08/04/24 15:15 Hold 08/04/24 17:37 1 TAB Morphine Sulfate 1 mg Q6HP PRN IV 08/04/24 15:15 08/09/24 12:34 1 MG Amlodipine Besylate 10 mg DAILY PO 08/05/24 10:00 08/09/24 10:51 10 MG Lisinopril 20 mg DAILY PO 08/05/24 10:00 08/09/24 10:50 20 MG Cyanocobalamin 1,000 mcg DAILY SUBCUT 08/05/24 10:00 Hold Hydralazine HCl 10 mg Q4HP PRN IV 08/04/24 18:45 08/08/24 04:26 10 MG Pantoprazole Sodium 40 mg DAILY@0600 PO 08/06/24 06:00 08/09/24 05:32 40 MG Diphenhydramine HCl 25 mg Q6HP PRN PO 08/05/24 14:30 08/09/24 03:58 25 MG Sodium Chloride 1,000 ml @ 125 mls/hr Q8H IV 08/06/24 10:15 08/09/24 10:52 125 MLS/HR Bacitracin 1 applic BID TOP 08/06/24 22:00 08/09/24 12:33 1 APPLIC Lactulose 30 ml BID PO 08/08/24 10:00 08/09/24 10:50 30 ML Sucralfate 1 gm BID@0600,2200 PO 08/07/24 22:00 08/09/24 05:32 1 GM Iron Sucrose 110 ml @ 110 mls/hr DAILY@1200 IV 08/08/24 12:00 08/12/24 12:59 08/09/24 12:33 110 MLS/HR Gabapentin 300 mg TID PO 08/08/24 14:00 08/09/24 13:59 300 MG Examination Physical examination: General Appearance: Alert, Oriented X3, Cooperative, No acute distress HEENT: Atraumatic, PERRLA, EOMI, Mucous membrane moist/pink Respiratory: Clear to auscultation, Normal air movement Cardiovascular: Regular rate, Normal S1, Normal S2, No murmurs, no chest wall tenderness Abdominal: Large ventral hernia, Normal bowel sounds, Soft, No hepatospenomegaly. Extremities: No clubbing, No cyanosis, No edema, Normal pulses, No tenderness/swelling Skin: No rashes, No breakdown, No significant lesion Neuro: Normal gait, Normal speech, Strength at 5/5 X4 ext, Normal tone, Sensation intact, grossly intact cranial nerves. Psych/Mental Status: Mental status NL, Mood NL laboratory and microbiology Laboratory Tests 08/09/24 06:05 08/06/24 05:44 Test 08/06/24 05:44 Range/Units Serum Glucose 100 74-106 mg/dL Microbiology Date/Time Source Procedure Growth Status 08/04/24 20:45 Nose MRSA Screen - Final Complete Labs and/or images reviewed: Labs reviewed by me, Image(s) reviewed by me Problem List/Assessment/Plan Problem List/Assessment/Plan Assessment: # Possible upper versus lower GI bleeding # Microcytic hypochromic anaemia # Large ventral hernia # CAD with s/p stentX4 # Possible peripheral arterial disease # History of rectal polyp , s/p surgery # Severe rheumatoid arthritis and psoriasis Patient underwent EGD on 08/07/24 demonstrated Large 6 cm sliding-type hiatal hernia with some erosions within the hiatal hernia sac and Mild antral gastritis with pre-pyloric antral gastric erosions otherwise normal examination up to the 2nd and 3rd part of the duodenum. Plan: - 1 units of PRBC given and H&H is stable - Protonix 40 mg p.o. daily, carafate 1 gm po bid - IV iron daily - CT abdomen pelvis without contrast ruled out incarcerated/strangulated ventral hernia - Pending FOBT - Recommended outpatient elective colonoscopy. - Recommended outpatient GI follow up after discharge. Plan discussed with Dr. Mancini Plan discussed with: Patient, Other Dietary Evaluation Review Comments: Iron supplementation-iron sucrose per order, continue 2 GNa Lo fat Lo Cholesterol diet Expected Outcomes/Goals: normal blood counts, improved cardiac health. MEKHI CNATRELL RESIDENT Aug 09, 2024 14:08
[2024-08-10] VITALS (8 sets, daily range): BP systolic 123–147; BP diastolic 43–74; PULSE 75–90; RESP 16–18; TEMP 98–98.6; O2SAT 95–97
[2024-08-10 07:13] LABS: Basophils # (auto) 0 10 ^3/uL (0-0.2); Basophils % (auto) 0.7 % (0.0-2.0); Eosinophils # (auto) 0.9 10 ^3/uL (0-0.8); Hematocrit 26.1 % (36.0-46.0); Mean Corpuscular Hgb Conc. 30.8 g/dL (32.0-36.0); Mean Corpuscular Volume 77.8 fL (80.0-100.0); Monocytes # (auto) 0.2 10 ^3/uL (0-1.3); Monocytes % (auto) 3.6 % (0.0-12.0); Neutrophils # (auto) 2.7 10 ^3/uL (1.6-8.6); Neutrophils % (auto) 55.6 % (37.0-80.0); Nucleated Red Blood Cells % 0.1 %; Platelet Count (auto) 301 10^3/uL (140-450); Red Blood Cells 3.35 10^6/uL (4.0-5.20); Red Cell Distribution Width 19.7 % (11.8-14.3); White Blood Cell 4.8 10^3/uL (4.4-10.8)
[2024-08-10 07:22] LABS: Eosinophils % (auto) 18.1 % (0.0-7.0)
--- NOTE | 2024-08-10 08:31 | DVHPN2 ---
Reviewed: Care Plan, H&P, Labs, Medications, Previous Orders, Radiology Changes from previous H/P or p: No Changes Eyes: No Pain, No Vision change, No Conjunctivae inflammation, No Eyelid inflammation, No Other, No Redness ENT: No Ear pain, No Ear discharge, No Nose pain, No Nose discharge, No Nose congestion, No Mouth pain, No Mouth swelling, No Throat pain, No Throat swelling, No Other Cardiovascular: No Chest Pain, No Palpitations, No Orthopnea, No Paroxysmal Noc. Dyspnea, No Edema, No Lt Headedness, No Other Respiratory: No Cough, No Dry, No Shortness of breath, No SOB with excertion, No Wheezing, No Hemoptysis, No Pleuritic Pain, No Sputum, No Other Gastrointestinal: No Nausea, No Vomiting, No Abdominal Pain, No Diarrhea, No Constipation, No Melena, No Hematochezia, No Other Genitourinary: No Dysuria, No Frequency, No Incontinence, No Hematuria, No Retention, No Other Musculoskeletal: No other, No neck pain, No shoulder pain, No arm pain, No back pain, No hand pain; leg pain; No foot pain Skin: Rash Objective Vitals Vital Signs Date Time Temp Pulse Resp B/P (MAP) Pulse Ox O2 Delivery O2 Flow Rate FiO2 08/10/24 06:32 87 17 135/54 08/10/24 05:00 98.6 95 98.6 08/09/24 20:00 Room Air* 0 21 Intake/Output Intake and Output 08/10/24 06:59 Intake Total 2458 ml Balance 2458 ml Intake Oral 1448 ml IV Total 1010 ml # Voids 1 Medications Current Medications Medications Dose Ordered Sig/Bebo Route Start Time Stop Time Status Last Admin Dose Admin Acetaminophen 650 mg Q6HP PRN PO 08/04/24 14:45 Hold Ondansetron HCl 4 mg Q4HP PRN IV 08/04/24 14:45 Acetaminophen/ Hydrocodone Bitart 1 tab Q6HPRN PRN PO 08/04/24 15:15 Hold 08/04/24 17:37 1 TAB Morphine Sulfate 1 mg Q6HP PRN IV 08/04/24 15:15 08/10/24 06:02 1 MG Amlodipine Besylate 10 mg DAILY PO 08/05/24 10:00 08/09/24 10:51 10 MG Lisinopril 20 mg DAILY PO 08/05/24 10:00 08/09/24 10:50 20 MG Cyanocobalamin 1,000 mcg DAILY SUBCUT 08/05/24 10:00 Hold Hydralazine HCl 10 mg Q4HP PRN IV 08/04/24 18:45 08/08/24 04:26 10 MG Pantoprazole Sodium 40 mg DAILY@0600 PO 08/06/24 06:00 08/10/24 05:57 40 MG Diphenhydramine HCl 25 mg Q6HP PRN PO 08/05/24 14:30 08/10/24 04:22 25 MG Sodium Chloride 1,000 ml @ 125 mls/hr Q8H IV 08/06/24 10:15 08/10/24 03:36 125 MLS/HR Bacitracin 1 applic BID TOP 08/06/24 22:00 08/09/24 22:26 1 APPLIC Lactulose 30 ml BID PO 08/08/24 10:00 08/09/24 22:30 30 ML Sucralfate 1 gm BID@0600,2200 PO 08/07/24 22:00 08/10/24 05:57 1 GM Iron Sucrose 110 ml @ 110 mls/hr DAILY@1200 IV 08/08/24 12:00 08/12/24 12:59 08/09/24 12:33 110 MLS/HR Gabapentin 300 mg TID PO 08/08/24 14:00 08/10/24 05:57 300 MG Laboratory Results Laboratory Tests 08/06/24 05:44 08/10/24 05:10 Urinalysis Test 08/04/24 16:32 08/05/24 00:39 Urine Hyaline Casts Few /lpf (0 - 2) Urine Color Light-yellow (Yellow) Urine Clarity Turbid (Clear) H Urine pH 5.5 (5.0-9.0) Urine Specific [place] 1.017 (1.001-1.035) Urine Protein Negative (Negative) Urine Ketones Negative (Negative) Urine Blood Negative /uL (Negative) Urine Nitrite Negative (Negative) Urine Bilirubin Negative (Negative) Urine Urobilinogen Normal mg/dL (Negative) Urine Leukocyte Esterase Negative /uL (Negative) Urine RBC 1 /hpf (0 - 4) Urine Microscopic WBC 1 /HPF (0-5) Urine Squamous Epithelial Cells Few /hpf (<5) Urine Bacteria None seen /hpf (None Seen) Urine Mucus Few (None Seen) Urine Glucose Normal mg/dL (Normal) Microbiology Microbiology Date/Time Source Procedure Growth Status 08/04/24 20:45 Nose MRSA Screen - Final Complete Labs and/or images reviewed: Labs reviewed by me, Image(s) reviewed by me Assessment/Plan Assessment/Plan Severe Pain right lower extremity secondary to more than 75 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 Emerson appreciated, not a candidate for vascular intervention secondary to patient being bedridden. Will start on gabapentin 400 mg PO TID History of stents right lower extremity Severe symptomatic anemia hemoglobin 6 .9:improved to 8.3 after 1 unit RBC transfusion, stable GI consult for Dr. Ira Mancini appreciated, iron infusion ordered Mild gastritis with gastric erosions by EGD by Dr. Ira Mancini on 08/07/2024, GI recommended outpatient colonoscopy Hypertension: Amlodipine lisinopril History of [place] Large ventral hernia Coronary artery disease status post stents x 4 TIA Severe rheumatoid arthritis Psoriasis History of rectal polyp status post surgery MRSA screen positive: Bactroban nasal ointment Time spent 45 minutes Advanced care planning time 20 minutes Patient is full code Discussed diagnosis and management with the patient's daughter Halina [phone] at bedside Patient was under the care of grandson in the past and now under the care of her daughter for the last one month. Plan discussed with: Patient My Orders Orders - DAVID CORREA MD Procedure Category Date Status Time Communication Order ORDERS 08/09/24 Transmitted 17:03 Mupirocin 2% Oint PHA 08/10/24 Transmitted Mrsa Nares (Bactroban 10:00 Date of Service: Aug 10, 2024 Billing Provider: DAVID CORREA MD Common Visit Codes: [id number] INP/OBS CARE(HIGH) DAVID CORREA MD Aug 10, 2024 08:31
[2024-08-10 09:05] LABS: Folate (Folic Acid) 10.71 ng/mL (>5.38)
[2024-08-10] MEDS: MUPIROCIN 2% OINT 15gm or 22gm FOR MRSA NARES EACHNOSTRI SCH (10:00)
--- NOTE | 2024-08-10 12:26 | DVHPN2 ---
Progress Note Date Seen: Aug 10, 2024 Resident Creating Document: MEKHI CANTRELL RESIDENT Medical Necessity Reason Pt with a Central, PICC or Fol: No Subjective Review of Systems The patient was seen and examined on the bedside. She is alert, oriented x3. Complaining of right leg pain. No other active complaint Objective vital signs Vital Sign Date Time Temp Pulse Resp B/P (MAP) Pulse Ox O2 Delivery O2 Flow Rate FiO2 08/10/24 10:55 135/54 08/10/24 09:00 98.4 87 17 95 98.4 08/09/24 20:00 Room Air* 0 21 Total Intake and Output 08/09/24 08/09/24 08/10/24 15:00 23:00 07:00 Intake Total 310 ml 698 ml 1450 ml Balance 310 ml 698 ml 1450 ml medications Current Medications Medications Dose Ordered Sig/Bebo Route Start Time Stop Time Status Last Admin Dose Admin Acetaminophen 650 mg Q6HP PRN PO 08/04/24 14:45 Hold Ondansetron HCl 4 mg Q4HP PRN IV 08/04/24 14:45 Acetaminophen/ Hydrocodone Bitart 1 tab Q6HPRN PRN PO 08/04/24 15:15 Hold 08/04/24 17:37 1 TAB Morphine Sulfate 1 mg Q6HP PRN IV 08/04/24 15:15 08/10/24 06:02 1 MG Amlodipine Besylate 10 mg DAILY PO 08/05/24 10:00 08/10/24 10:53 10 MG Lisinopril 20 mg DAILY PO 08/05/24 10:00 08/10/24 10:55 20 MG Cyanocobalamin 1,000 mcg DAILY SUBCUT 08/05/24 10:00 Hold Hydralazine HCl 10 mg Q4HP PRN IV 08/04/24 18:45 08/08/24 04:26 10 MG Pantoprazole Sodium 40 mg DAILY@0600 PO 08/06/24 06:00 08/10/24 05:57 40 MG Diphenhydramine HCl 25 mg Q6HP PRN PO 08/05/24 14:30 08/10/24 04:22 25 MG Sodium Chloride 1,000 ml @ 125 mls/hr Q8H IV 08/06/24 10:15 08/10/24 03:36 125 MLS/HR Bacitracin 1 applic BID TOP 08/06/24 22:00 08/10/24 10:55 1 APPLIC Lactulose 30 ml BID PO 08/08/24 10:00 08/09/24 22:30 30 ML Sucralfate 1 gm BID@0600,2200 PO 08/07/24 22:00 08/10/24 05:57 1 GM Iron Sucrose 110 ml @ 110 mls/hr DAILY@1200 IV 08/08/24 12:00 08/12/24 12:59 08/09/24 12:33 110 MLS/HR Gabapentin 300 mg TID PO 08/08/24 14:00 08/10/24 05:57 300 MG Mupirocin 1 applic BID EACHNOSTRI 08/10/24 10:00 08/15/24 09:59 Iron Sucrose 110 ml @ 110 mls/hr DAILY@1200 IV 08/10/24 12:00 08/14/24 12:59 Examination Physical examination: General Appearance: Alert, Oriented X3, Cooperative, No acute distress HEENT: Atraumatic, PERRLA, EOMI, Mucous membrane moist/pink Respiratory: Clear to auscultation, Normal air movement Cardiovascular: Regular rate, Normal S1, Normal S2, No murmurs, no chest wall tenderness Abdominal: Large ventral hernia, Normal bowel sounds, Soft, No tenderness, No hepatospenomegaly, No masses Extremities: No clubbing, No cyanosis, No edema, Normal pulses, No tenderness/swelling Skin: No rashes, No breakdown, No significant lesion Neuro: Normal gait, Normal speech, Strength at 5/5 X4 ext, Normal tone, Sensation intact, Cranial nerves 3-12 NL, Reflexes 2+ Psych/Mental Status: Mental status NL, Mood NL laboratory and microbiology Laboratory Tests 08/10/24 05:10 08/06/24 05:44 Test 08/06/24 05:44 Range/Units Serum Glucose 100 74-106 mg/dL Microbiology Date/Time Source Procedure Growth Status 08/04/24 20:45 Nose MRSA Screen - Final Complete Labs and/or images reviewed: Labs reviewed by me, Image(s) reviewed by me Problem List/Assessment/Plan Problem List/Assessment/Plan Assessment: # Possible upper versus lower GI bleeding # Microcytic hypochromic anaemia # Large ventral hernia # CAD with s/p stentX4 # Possible peripheral arterial disease # History of rectal polyp , s/p surgery # Severe rheumatoid arthritis and psoriasis Patient underwent EGD on 08/07/24 demonstrated Large 6 cm sliding-type hiatal hernia with some erosions within the hiatal hernia sac and Mild antral gastritis with pre-pyloric antral gastric erosions otherwise normal examination up to the 2nd and 3rd part of the duodenum. Plan: - 1 units of PRBC given and H&H is stable - Protonix 40 mg p.o. daily, carafate 1 gm po bid - IV iron daily - CT abdomen pelvis without contrast ruled out incarcerated/strangulated ventral hernia - Pending FOBT - Recommended outpatient elective colonoscopy. - Recommended outpatient GI follow up after discharge. Plan discussed with Dr. Mancini Plan discussed with: Patient, Other Dietary Evaluation Review Comments: Iron supplementation-iron sucrose per order, continue 2 GNa Lo fat Lo Cholesterol diet Expected Outcomes/Goals: normal blood counts, improved cardiac health. MEKHI CANTRELL RESIDENT Aug 10, 2024 12:26
[2024-08-10] MEDS: IRON SUCROSE COMPLEX 110 ML IV SCH (12:42)
[2024-08-11 01:00] VITALS: BP 137/54; PULSE 80; RESP 18; TEMP 97.7; O2SAT 98
[2024-08-11 05:00] VITALS: BP 157/61; PULSE 85; RESP 18; TEMP 97.4; O2SAT 98
[2024-08-11 07:38] LABS: Hematocrit 24.7 % (36.0-46.0); Hemoglobin 7.8 g/dL (12.2-16.2); Mean Corpuscular Hemoglobin 24.2 pg (28.0-32.0); Mean Corpuscular Hgb Conc. 31.4 g/dL (32.0-36.0); Mean Corpuscular Volume 76.9 fL (80.0-100.0); Platelet Count (auto) 297 10^3/uL (140-450); Red Blood Cells 3.21 10^6/uL (4.0-5.20); Red Cell Distribution Width 19.8 % (11.8-14.3); White Blood Cell 4.9 10^3/uL (4.4-10.8)
[2024-08-11 07:42] LABS: Band Neutrophils % (manual) 0; Basophils % (manual) 0 (0.0-2.0); Blast Cells 0; Metamyelocytes % 0; Myelocytes % 0; Promyelocytes % 0; Reactive Lymphocytes 0
[2024-08-11 08:00] VITALS: PULSE 77; PULSE 81
[2024-08-11 08:32] LABS: Eosinophils % (manual) 12 (0-7); Lymphocytes % (manual) 25 (10.0-50.0); Monocytes % (manual) 1 (0-12)
[2024-08-11 08:33] LABS: Platelet Estimate Adequate
--- NOTE | 2024-08-11 08:39 | DVHPN2 ---
Reviewed: Care Plan, H&P, Labs, Medications, Previous Orders, Radiology Changes from previous H/P or p: No Changes Eyes: No Pain, No Vision change, No Conjunctivae inflammation, No Eyelid inflammation, No Other, No Redness ENT: No Ear pain, No Ear discharge, No Nose pain, No Nose discharge, No Nose congestion, No Mouth pain, No Mouth swelling, No Throat pain, No Throat swelling, No Other Cardiovascular: No Chest Pain, No Palpitations, No Orthopnea, No Paroxysmal Noc. Dyspnea, No Edema, No Lt Headedness, No Other Respiratory: No Cough, No Dry, No Shortness of breath, No SOB with excertion, No Wheezing, No Hemoptysis, No Pleuritic Pain, No Sputum, No Other Gastrointestinal: No Nausea, No Vomiting, No Abdominal Pain, No Diarrhea, No Constipation, No Melena, No Hematochezia, No Other Genitourinary: No Dysuria, No Frequency, No Incontinence, No Hematuria, No Retention, No Other Musculoskeletal: No other, No neck pain, No shoulder pain, No arm pain, No back pain, No hand pain; leg pain; No foot pain Skin: Rash Objective Vitals Vital Signs Date Time Temp Pulse Resp B/P (MAP) Pulse Ox O2 Delivery O2 Flow Rate FiO2 08/11/24 05:00 97.4 85 18 157/61 (93) 98 97.4 08/10/24 20:00 Room Air* 0 21 Intake/Output Intake and Output 08/11/24 07:00 Intake Total 1878 ml Balance 1878 ml Intake Oral 1768 ml IV Total 110 ml # Voids 4 Medications Current Medications Medications Dose Ordered Sig/Bebo Route Start Time Stop Time Status Last Admin Dose Admin Acetaminophen 650 mg Q6HP PRN PO 08/04/24 14:45 Hold Ondansetron HCl 4 mg Q4HP PRN IV 08/04/24 14:45 Acetaminophen/ Hydrocodone Bitart 1 tab Q6HPRN PRN PO 08/04/24 15:15 Hold 08/04/24 17:37 1 TAB Morphine Sulfate 1 mg Q6HP PRN IV 08/04/24 15:15 08/10/24 22:21 1 MG Amlodipine Besylate 10 mg DAILY PO 08/05/24 10:00 08/10/24 10:53 10 MG Lisinopril 20 mg DAILY PO 08/05/24 10:00 08/10/24 10:55 20 MG Cyanocobalamin 1,000 mcg DAILY SUBCUT 08/05/24 10:00 Hold Hydralazine HCl 10 mg Q4HP PRN IV 08/04/24 18:45 08/08/24 04:26 10 MG Pantoprazole Sodium 40 mg DAILY@0600 PO 08/06/24 06:00 08/11/24 05:22 40 MG Diphenhydramine HCl 25 mg Q6HP PRN PO 08/05/24 14:30 08/11/24 03:59 25 MG Sodium Chloride 1,000 ml @ 125 mls/hr Q8H IV 08/06/24 10:15 08/11/24 05:29 125 MLS/HR Bacitracin 1 applic BID TOP 08/06/24 22:00 08/10/24 22:13 1 APPLIC Lactulose 30 ml BID PO 08/08/24 10:00 08/09/24 22:30 30 ML Sucralfate 1 gm BID@0600,2200 PO 08/07/24 22:00 08/11/24 05:22 1 GM Iron Sucrose 110 ml @ 110 mls/hr DAILY@1200 IV 08/08/24 12:00 Hold 08/09/24 12:33 110 MLS/HR Gabapentin 300 mg TID PO 08/08/24 14:00 08/11/24 05:23 300 MG Mupirocin 1 applic BID EACHNOSTRI 08/10/24 10:00 08/15/24 09:59 08/10/24 22:17 1 APPLIC Iron Sucrose 110 ml @ 110 mls/hr DAILY@1200 IV 08/10/24 12:00 08/14/24 12:59 08/10/24 12:42 110 MLS/HR Laboratory Results Laboratory Tests 08/06/24 05:44 08/11/24 07:14 Urinalysis Test 08/04/24 16:32 08/05/24 00:39 Urine Hyaline Casts Few /lpf (0 - 2) Urine Color Light-yellow (Yellow) Urine Clarity Turbid (Clear) H Urine pH 5.5 (5.0-9.0) Urine Specific [place] 1.017 (1.001-1.035) Urine Protein Negative (Negative) Urine Ketones Negative (Negative) Urine Blood Negative /uL (Negative) Urine Nitrite Negative (Negative) Urine Bilirubin Negative (Negative) Urine Urobilinogen Normal mg/dL (Negative) Urine Leukocyte Esterase Negative /uL (Negative) Urine RBC 1 /hpf (0 - 4) Urine Microscopic WBC 1 /HPF (0-5) Urine Squamous Epithelial Cells Few /hpf (<5) Urine Bacteria None seen /hpf (None Seen) Urine Mucus Few (None Seen) Urine Glucose Normal mg/dL (Normal) Microbiology Microbiology Date/Time Source Procedure Growth Status 08/04/24 20:45 Nose MRSA Screen - Final Complete Labs and/or images reviewed: Labs reviewed by me, Image(s) reviewed by me Assessment/Plan Assessment/Plan Severe Pain right lower extremity secondary to more than 75 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 Emerson appreciated, not a candidate for vascular intervention secondary to patient being bedridden. Will start on gabapentin 400 mg PO TID History of stents right lower extremity Severe symptomatic anemia hemoglobin 6 .9:improved to 8.3 after 1 unit RBC transfusion, stable GI consult for Dr. Ira Mancini appreciated, iron infusion ordered Mild gastritis with gastric erosions by EGD by Dr. Ira Mancini on 08/07/2024, GI recommended outpatient colonoscopy Hypertension: Amlodipine lisinopril History of [place] Large ventral hernia Coronary artery disease status post stents x 4 TIA Severe rheumatoid arthritis Psoriasis History of rectal polyp status post surgery MRSA screen positive: Bactroban nasal ointment Time spent 45 minutes Advanced care planning time 20 minutes Patient is full code Discussed diagnosis and management with the patient's daughter Halina [phone] at bedside Patient was under the care of grandson in the past and now under the care of her daughter for the last one month. Plan discussed with: Patient My Orders Orders - DAVID CORREA MD Procedure Category Date Status Time Iron Sucrose Complex PHA 08/10/24 In Process (Venofer) 12:00 Manual Differential LAB 08/11/24 In Process 07:14 Date of Service: Aug 11, 2024 Billing Provider: DAVID CORREA MD Common Visit Codes: [id number] INP/OBS CARE(HIGH) DAVID CORREA MD Aug 11, 2024 08:39
[2024-08-11] MEDS ORDERED: FERR-7 PO (08:42)
[2024-08-11] MEDS ORDERED: GABA-1250 PO (08:42)
[2024-08-11] MEDS ORDERED: SUCR1TAB31 PO (08:42)
[2024-08-11] MEDS ORDERED: PANT40T PO (08:42)
--- NOTE | 2024-08-11 08:45 | DVHDS2 ---
Discharge Summary Date of Admission Aug 04, 2024 at 14:41 Date of Discharge: Aug 11, 2024 Admitting Diagnosis Generalized weakness Wounds: EGD Labs/Diagnostic Data: Laboratory Results Test 08/11/24 07:14 08/10/24 08:37 08/10/24 05:10 08/06/24 05:44 White Blood Count 4.9 10^3/uL (4.4-10.8) Red Blood Count 3.21 10^6/uL (4.0-5.20) Hemoglobin 7.8 g/dL (12.2-16.2) Hematocrit 24.7 % (36.0-46.0) Mean Corpuscular Volume 76.9 fL (80.0-100.0) Mean Corpuscular Hemoglobin 24.2 pg (28.0-32.0) Mean Corpuscular Hemoglobin Concent 31.4 g/dL (32.0-36.0) Red Cell Distribution Width 19.8 % (11.8-14.3) Platelet Count 297 10^3/uL (140-450) Mean Platelet Volume 8.4 fL (6.9-10.8) Neutrophils (%) (Auto) % (37.0-80.0) Lymphocytes (%) (Auto) % (10.0-50.0) Monocytes (%) (Auto) % (0.0-12.0) Eosinophils (%) (Auto) % (0.0-7.0) Basophils (%) (Auto) % (0.0-2.0) Neutrophils # (Auto) 10 ^3/uL (1.6-8.6) Lymphocytes # (Auto) 10 ^3/uL (0.4-5.4) Monocytes # (Auto) 10 ^3/uL (0-1.3) Differential Total Cells Counted 100.0 (100) Neutrophils % (Manual) 62 (37.0-80.0) Band Neutrophils % (Manual) 0 Lymphocytes % (Manual) 25 (10.0-50.0) Monocytes % (Manual) 1 (0-12) Eosinophils % (Manual) 12 (0-7) Basophils % (Manual) 0 (0.0-2.0) Metamyelocytes % (manual) 0 Myelocytes % (Manual) 0 Promyelocytes % (Manual) 0 Blast Cells % (Manual) 0 Reactive Lymphocytes 0 Platelet Estimate Adequate Vitamin B12 Level 228 pg/mL (211-911) Folic Acid 10.71 ng/mL (>5.38) Eosinophils # (Auto) 0.9 10 ^3/uL (0-0.8) Basophils # (Auto) 0 10 ^3/uL (0-0.2) Nucleated Red Blood Cells 0.1 % Hypochromasia (manual) Slight Microcytosis Slight Sodium Level 137 mmol/L (136-145) Potassium Level 4.0 mmol/L (3.5-5.1) Chloride Level 108 mmol/L (98-107) Carbon Dioxide Level 22 mmol/L (20-31) Anion Gap 7 (5-15) Blood Urea Nitrogen 16 mg/dL (9-23) Creatinine 0.84 mg/dL (0.550-1.02) Glomerular Filtration Rate Calc 75 mL/min (>90) BUN/Creatinine Ratio 19.0 (10.0-20.0) Serum Glucose 100 mg/dL (74-106) Calcium Level 9.5 mg/dL (8.7-10.4) Test 08/05/24 07:15 08/05/24 00:39 08/04/24 16:32 08/04/24 15:37 Ferritin 6.7 ng/mL (10-291) Total Bilirubin 0.4 mg/dL (0.2-1.0) Aspartate Amino Transferase (AST) 10 U/L (13-40) Alanine Aminotransferase (ALT) < 9 U/L (7-40) Alkaline Phosphatase 109 U/L (46-116) Total Protein 6.7 g/dL (5.7-8.2) Albumin 3.7 g/dL (3.2-4.8) Urine Color Light-yellow (Yellow) Urine Clarity Turbid (Clear) Urine pH 5.5 (5.0-9.0) Urine Specific [place] 1.017 (1.001-1.035) Urine Protein Negative (Negative) Urine Ketones Negative (Negative) Urine Blood Negative /uL (Negative) Urine Nitrite Negative (Negative) Urine Bilirubin Negative (Negative) Urine Urobilinogen Normal mg/dL (Negative) Urine Leukocyte Esterase Negative /uL (Negative) Urine RBC 1 /hpf (0 - 4) Urine Microscopic WBC 1 /HPF (0-5) Urine Squamous Epithelial Cells Few /hpf (<5) Urine Bacteria None seen /hpf (None Seen) Urine Mucus Few (None Seen) Urine Glucose Normal mg/dL (Normal) Urine Hyaline Casts Few /lpf (0 - 2) Prothrombin Time 10.1 sec (9.3-11.8) Prothrombin Time INR 0.95 (0.9-1.15) Activated Partial Thromboplast Time 24.3 SEC (24.5-34.5) Test 08/04/24 10:44 Anisocytosis (manual) Slight Ovalocytes Few Reticulocyte Count (auto) 1.25 % (0.5-1.5) Haptoglobin 204 mg/dL (37-355) Iron Level 18 ug/dL (50-170) Total Iron Binding Capacity 340 ug/dL (250-425) Percent Iron Saturation 5.3 % (15-50) Other Laboratory Tests 08/11/24 07:14 08/06/24 05:44 Brief Hx & Hospital Course: 69-year-old female came in for severe pain in the right lower extremity. Found to have more than 75 percent stenosis of right mid superficial femoral artery consult for vascular surgeon advised not a candidate for vascular intervention secondary to patient being bedridden started on gabapentin patient also had anemia hemoglobin 6.9 improved to 8.3 after 1 unit RBC transfusion EGD by Dr. Ira Mancini showed gastric erosions patient is on pantoprazole and Carafate advised outpatient colonoscopy MRSA screen positive Bactroban nasal ointment given patient also has a history of rectal polyp in the past for which she had surgery. History of [place] with stents Patient refused [facility] facility for rehab. Patient being discharged home prescription transmitted to the pharmacy Consults/Reason for consult GI Dr. Ira Mancini Operations or Procedures EGD RBC transfusion Condition at Discharge: Fair Final Diagnosis/Problems List Severe Pain right lower extremity secondary to more than 75 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 Emerson appreciated, not a candidate for vascular intervention secondary to patient being bedridden. Will start on gabapentin 400 mg PO TID History of stents right lower extremity Severe symptomatic anemia hemoglobin 6 .9:improved to 8.3 after 1 unit RBC transfusion, stable GI consult for Dr. Ira Mancini appreciated, iron infusion ordered Mild gastritis with gastric erosions by EGD by Dr. Ira Mancini on 08/07/2024, GI recommended outpatient colonoscopy Hypertension: Amlodipine lisinopril History of [place] Large ventral hernia Coronary artery disease status post stents x 4 TIA Severe rheumatoid arthritis Psoriasis History of rectal polyp status post surgery MRSA screen positive: Bactroban nasal ointment Discharge Disposition: Home Discharge Instruct/Medications Diet: Cardiac 2g Na,low cholest Activity: Light activity Medications: Pantoprazole Carafate Iron Gabapentin Transmitted to pharmacy 35 (Time taken for discharge summary 35 minutes) Discharge Statement: "Patient was advised to return to the ER or call 911 if any headaches, dizziness, shortness of breath, chest pain, abdominal pain, bleeding, fevers, or worsening of medical condition. Patient was counseled about treatment plan, medications, possible side effects, patientverbalized understanding. All questions were answered to the best of my ability. This discharge took greater then 30 minutes in planning, reviewing documentation, counseling the patient, and discussing with other team members." ASSESSMENT ASSESSMENT Hospital Course Uneventful Assessment Severe Pain right lower extremity secondary to more than 75 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 Emerson appreciated, not a candidate for vascular intervention secondary to patient being bedridden. Will start on gabapentin 400 mg PO TID History of stents right lower extremity Severe symptomatic anemia hemoglobin 6 .9:improved to 8.3 after 1 unit RBC transfusion, stable GI consult for Dr. Ira Mancini appreciated, iron infusion ordered Mild gastritis with gastric erosions by EGD by Dr. Ira Mancini on 08/07/2024, GI recommended outpatient colonoscopy Hypertension: Amlodipine lisinopril History of [place] Large ventral hernia Coronary artery disease status post stents x 4 TIA Severe rheumatoid arthritis Psoriasis History of rectal polyp status post surgery MRSA screen positive: Bactroban nasal ointment Date of Service: Aug 11, 2024 Billing Provider: DAVID CORREA MD Common Visit Codes: [id number] DISCH DAY >30min DAVID CORREA MD Aug 11, 2024 08:45
[2024-08-11 09:01] VITALS: BP 170/68; PULSE 86; RESP 18; TEMP 99.3; O2SAT 95
[2024-08-11 11:47] VITALS: BP 149/70; PULSE 80; RESP 17; TEMP 98.9; O2SAT 95
--- NOTE | 2024-08-11 12:37 | DVHPN2 ---
Progress Note Date Seen: Aug 11, 2024 Resident Creating Document: MEKHI CANTRELL RESIDENT Medical Necessity Reason Pt with a Central, PICC or Fol: No Subjective Review of Systems The patient was seen and examined on the bedside. She is alert oriented x3. No active complaint at this time. Objective vital signs Vital Sign Date Time Temp Pulse Resp B/P (MAP) Pulse Ox O2 Delivery O2 Flow Rate FiO2 08/11/24 11:47 98.9 80 17 95 08/11/24 11:33 129/80 08/10/24 20:00 Room Air* 0 21 Total Intake and Output 08/10/24 08/10/24 08/11/24 15:00 23:00 07:00 Intake Total 330 ml 798 ml 750 ml Balance 330 ml 798 ml 750 ml medications Current Medications Medications Dose Ordered Sig/Bebo Route Start Time Stop Time Status Last Admin Dose Admin Acetaminophen 650 mg Q6HP PRN PO 08/04/24 14:45 Hold Ondansetron HCl 4 mg Q4HP PRN IV 08/04/24 14:45 Acetaminophen/ Hydrocodone Bitart 1 tab Q6HPRN PRN PO 08/04/24 15:15 Hold 08/04/24 17:37 1 TAB Morphine Sulfate 1 mg Q6HP PRN IV 08/04/24 15:15 08/11/24 09:32 1 MG Amlodipine Besylate 10 mg DAILY PO 08/05/24 10:00 08/11/24 11:29 10 MG Lisinopril 20 mg DAILY PO 08/05/24 10:00 08/11/24 11:29 20 MG Cyanocobalamin 1,000 mcg DAILY SUBCUT 08/05/24 10:00 Hold Hydralazine HCl 10 mg Q4HP PRN IV 08/04/24 18:45 08/08/24 04:26 10 MG Pantoprazole Sodium 40 mg DAILY@0600 PO 08/06/24 06:00 08/11/24 05:22 40 MG Diphenhydramine HCl 25 mg Q6HP PRN PO 08/05/24 14:30 08/11/24 03:59 25 MG Sodium Chloride 1,000 ml @ 125 mls/hr Q8H IV 08/06/24 10:15 08/11/24 05:29 125 MLS/HR Bacitracin 1 applic BID TOP 08/06/24 22:00 08/11/24 11:32 1 APPLIC Lactulose 30 ml BID PO 08/08/24 10:00 08/09/24 22:30 30 ML Sucralfate 1 gm BID@0600,2200 PO 08/07/24 22:00 08/11/24 05:22 1 GM Iron Sucrose 110 ml @ 110 mls/hr DAILY@1200 IV 08/08/24 12:00 Hold 08/09/24 12:33 110 MLS/HR Gabapentin 300 mg TID PO 08/08/24 14:00 08/11/24 05:23 300 MG Mupirocin 1 applic BID EACHNOSTRI 08/10/24 10:00 08/15/24 09:59 08/11/24 10:00 1 APPLIC Iron Sucrose 110 ml @ 110 mls/hr DAILY@1200 IV 08/10/24 12:00 08/14/24 12:59 08/10/24 12:42 110 MLS/HR Examination Physical examination: General Appearance: Alert, Oriented X3, Cooperative, No acute distress HEENT: Atraumatic, PERRLA, EOMI, Mucous membrane moist/pink Respiratory: Clear to auscultation, Normal air movement Cardiovascular: Regular rate, Normal S1, Normal S2, No murmurs, no chest wall tenderness Abdominal: Normal bowel sounds, Soft, No tenderness, No hepatospenomegaly, No masses Extremities: No clubbing, No cyanosis, No edema, Normal pulses, No tenderness/swelling Skin: No rashes, No breakdown, No significant lesion Neuro: Wheel chair bound, Normal speech, Strength at 5/5 X4 ext, Normal tone, Sensation intact, Cranial nerves 3-12 NL, Reflexes 2+ Psych/Mental Status: Mental status NL, Mood NL laboratory and microbiology Laboratory Tests 08/11/24 07:14 08/06/24 05:44 Test 08/06/24 05:44 Range/Units Serum Glucose 100 74-106 mg/dL Microbiology Date/Time Source Procedure Growth Status 08/04/24 20:45 Nose MRSA Screen - Final Complete Labs and/or images reviewed: Labs reviewed by me, Image(s) reviewed by me Problem List/Assessment/Plan Problem List/Assessment/Plan Assessment: # Possible upper versus lower GI bleeding # Microcytic hypochromic anaemia # Large ventral hernia # CAD with s/p stentX4 # Possible peripheral arterial disease # History of rectal polyp , s/p surgery # Severe rheumatoid arthritis and psoriasis Patient underwent EGD on 08/07/24 demonstrated Large 6 cm sliding-type hiatal hernia with some erosions within the hiatal hernia sac and Mild antral gastritis with pre-pyloric antral gastric erosions otherwise normal examination up to the 2nd and 3rd part of the duodenum. Plan: - 1 units of PRBC given and H&H is stable - Protonix 40 mg p.o. daily, carafate 1 gm po bid - IV iron daily - CT abdomen pelvis without contrast ruled out incarcerated/strangulated ventral hernia - Pending FOBT - Recommended outpatient elective colonoscopy. - Recommended outpatient GI follow up after discharge. Plan discussed with Dr. Mancini Plan discussed with: Patient, Other Dietary Evaluation Review Comments: Iron supplementation-iron sucrose per order, continue 2 GNa Lo fat Lo Cholesterol diet Expected Outcomes/Goals: normal blood counts, improved cardiac health. MEKHI CANTRELL RESIDENT Aug 11, 2024 12:37
[2024-08-11] MEDS ORDERED: TRAM-626 PO (13:11)
== END 2024-08-11 13:55 | disposition home or self-care (01) | DRG 812 ==
LOC: EDBD 10:11 → ER 10:11 → OVERFLOW 14:41 → TELE-CENTR 17:11 → TELE-EAST 08-07 21:53 → TELE-CENTR 08-09 16:47
PROVIDERS: ADMIT Family Medicine; ATTEND Family Medicine
PROC: 30233N1 Transfusion of Nonautologous Red Blood Cells into Peripheral Vein, Percutaneous Approach (ICD-10-PCS; principal; 2024-08-05)
PROC: 0DB98ZX Excision of Duodenum, Via Natural or Artificial Opening Endoscopic, Diagnostic (ICD-10-PCS; 2024-08-07)
PROC: 0DB68ZX Excision of Stomach, Via Natural or Artificial Opening Endoscopic, Diagnostic (ICD-10-PCS; 2024-08-07)
DX: D50.9 Iron deficiency anemia, unspecified (principal); K44.9 Diaphragmatic hernia without obstruction or gangrene; K43.9 Ventral hernia without obstruction or gangrene; I70.298 Other atherosclerosis of native arteries of extremities, other extremity; L40.9 Psoriasis, unspecified; M06.9 Rheumatoid arthritis, unspecified; I10 Essential (primary) hypertension; I25.10 Atherosclerotic heart disease of native coronary artery without angina pectoris; K29.80 Duodenitis without bleeding; K29.70 Gastritis, unspecified, without bleeding; F17.210 Nicotine dependence, cigarettes, uncomplicated; K25.9 Gastric ulcer, unspecified as acute or chronic, without hemorrhage or perforation; I25.2 Old myocardial infarction; Z74.01 Bed confinement status; Z79.899 Other long term (current) drug therapy; Z86.0100 Personal history of colon polyps, unspecified; Z86.73 Personal history of transient ischemic attack (TIA), and cerebral infarction without residual deficits; Z90.710 Acquired absence of both cervix and uterus; Z95.5 Presence of coronary angioplasty implant and graft; Z82.5 Family history of asthma and other chronic lower respiratory diseases; Z88.2 Allergy status to sulfonamides; Z88.8 Allergy status to other drugs, medicaments and biological substances
CPT/HCPCS: 36415; 71045; 74176; 80048; 80053; 81001; 82607; 82728; 82746; 83010; 83540; 83550; 85007; 85025; 85027; 85045; 85610; 85730; 86850; 86900; 86901; 86920; 87081; 93005; 93926; 97163; 99291; G0378; J1756

== ENCOUNTER 2024-09-22 20:31 | Emergency (ER) | payer MEDICARE, MEDICAID ==
[~2024-09-22] VITALS: Ht 152.4 cm; Wt 47.0 kg
[~2024-09-22 20:31] MED LIST changes: +FERR-7 PO; +GABA-1250 PO; +PANT40T PO; +SUCR1TAB31 PO; +TRAM-626 PO
--- NOTE | 2024-09-22 21:07 | ED.PDOC ---
Musculoskeletal HPI Comments 69y F who presents to the ED for chief complaint of lower extremity pain. Pt states she has been having bilateral lower extremity pain and has pain at site of groin where pt has cardiac catheterization last year. Pt is accompanied by daughter who states whenever pt is attempting to move or ambulate in wheelchair, she starts to scream and has been unable to relive her pain symptoms. 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 Emerson appreciated, not a candidate for vascular intervention secondary to patient being bedridden. Will start on gabapentin 400 mg PO TID. Pt daughter states pt was hospitalized with clot in her R leg and discharged to follow up with PCP. Pt otherwise denies any other symptoms. Patient was mildly hypertensive at arrival. Time Seen by MD: 21:03 Primary Care Provider: UNKNOWN Reviewed Notes: Nurses Notes, Medications, Allergies Allergies: Coded Allergies: Acetaminophen (Verified Allergy, Severe, "body turns red" "It becomes hard to breath", 08/04/24) "body turns red" "It becomes hard to breath" Aspirin (Verified Allergy, Severe, "body turns red" "It becomes hard to breath", 08/04/24) "body turns red" "It becomes hard to breath" Sulfa Antibiotics (Verified Allergy, Unknown, 08/10/18) Home Meds Active Scripts Tramadol HCl (Tramadol HCl) 50 Mg Tab, 50 MG PO QID PRN, #30 TAB Prov:DAVID CORREA MD 08/11/24 Gabapentin (Gabapentin) 300 Mg Cap, 1 CAP PO TID, #90 CAP 5 Refills Prov:DAVID CORREA MD 08/11/24 Ferrous Sulfate (Iron) 325 Mg Tab, 325 MG PO BID, #180 TAB Prov:DAVID CORREA MD 08/11/24 Sucralfate (CARAFATE) 1 Gm Tab, 1 GM PO QID, #120 TAB Prov:DAVID CORREA MD 08/11/24 Pantoprazole Sodium Sesquihydr (Pantoprazole Sodium) 40 Mg Tab, 40 MG PO BID, #60 TAB Prov:DAVID CORREA MD 08/11/24 Hydrocortisone (Rectal) (Procto-Med Hc) 2.5 % Cre, 2.5 % [place] Q6HPRN PRN, #28 GRAMS 5 Refills Prov:SCOTTIE AMAYA MD 05/15/23 Hydrocodone-Acetaminophen (Hydrocodone Bitartrate/AC 5-325 mg) 1 Tab Tab, 1 TAB PO Q4HP PRN, #30 TAB Prov:SCOTTIE AMAYA MD 05/14/23 Amlodipine Besylate (NORVASC TABLET) 5 Mg Tb, 10 MG PO DAILY, #30 Prov:NADIYA REICH MD 02/10/19 Lisinopril (Lisinopril) 20 Mg Tab, 1 TAB PO DAILY, #30 TAB 5 Refills Prov:NADIYA REICH MD 02/10/19 Reported Medications Nitroglycerin (Nitrostat) 0.4 Mg Sub, 0.4 MG SL 02/08/19 Hydrocodone-Acetaminophen ([place] 5/325MG) 1 Tab Tb, 1 TAB PO Q6HR, #60 TAB 02/08/19 Vitamin B12 (Vitamin B-12) 1,000 Mcg/1 Ml Ij, 1 TAB PO DAILY 02/07/19 Information Source: Patient, Relative Mode of Arrival: Wheelchair Brought in by: DAUGHTER Location: Left, Right Extremity Location: Leg Timing: Days Prehospital treatment: None Severity: Moderate Able to Move Extremity: Yes Bear Weight: Limited Pain: Moderate Hand Dominance: Right Mechanism: Spontaneous Circumstances: Spontaneous Onset of Symptoms: Spontaneous Symptoms: Pain DVT Risk Factors: NONE Past Medical History PAST MEDICAL HISTORY: Anemia, Arthritis, HTN, [place], TIA Surgical History: Appendectomy, BTL, , Hernia Repair, Hysterectomy MERCHANDISE COLLECTOR History: No Pertinent MERCHANDISE COLLECTOR History Family History Family History: Unknown Social History Smoker: Cigarettes, Less Than 1 Pack/Day Alcohol: Denies ETOH Use Drugs: Marijuana Lives In: Home Constitutional: denies: chills, diaphoresis, fatigue, fever, malaise, sweats, weakness, others EENTM: denies: blurred vision, double vision, ear bleeding, ear discharge, ear drainage, ear pain, ear ringing, eye pain, eye redness, hearing loss, mouth pain, mouth swelling, nasal discharge, nose bleeding, nose congestion, nose pain, photophobia, tearing, throat pain, throat swelling, voice changes, others Respiratory: denies: cough, hemoptysis, orthopnea, SOB at rest, shortness of breath, SOB with excertion, stridor, wheezing, others Cardiovascular: denies: chest pain, dizzy spells, diaphoresis, Dyspnea on exertion, edema, irregular heart beat, left arm pain, lightheadedness, palp itations, PND, syncope, others Gastrointestinal: denies: abdomen distended, abdominal pain, blood streaked bowels, constipated, diarrhea, dysphagia, difficulty swallowing, hematemesis, melena, nausea, poor appetite, poor fluid intake, rectal bleeding, rectal pain, vomiting, others Genitourinary: denies: abnormal vagina bleeding, burning, dyspareunia, dysuria, flank pain, frequency, hematuria, incontinence, pain, , vagina discharge, urgency, others Neurological: denies: dizziness, fainting, headache, left sided numbness, left sided weakness, numbness, paresthesia, pre-existing deficit, right sided numbness, right sided weakness, seizure, speech problems, tingling, tremors, weakness, others Musculoskeletal: reports: others (Upper right leg pain); denies: back pain, gout, joint pain, joint swelling, muscle pain, muscle stiffness, neck pain Integumetry: denies: bruises, change in color, change in hair/nails, dryness, laceration, lesions, lumps, rash, wounds, others Allergic/Immunocompromised: denies: Difficulty Healing, Frequent Infections, Hives, Itching, others Hematologic/Lymphatic: denies: anemia, blood clots, easy bleeding, easy bruising, swollen glands, others Endocrine: denies: excessive hunger, excessive sweating, excessive thirst, excessive urination, flushing, intolerance to cold, intolerance to heat, un explained weight gain, unexplained weight loss, others Psychiatric: denies: anxiety, bipolar disorder, depression, hopeless, panic disorder, schizophrenia, sleepless, suicidal, others All Other Systems: Reviewed and Negative Physical Exam General Appearance: Moderate Distress (Due to right leg thigh pain concerns), Normal HEENT: Normal ENT Inspection, Pharynx Normal, TMs Normal Neck: Full Range of Motion, Non-Tender, Normal, Normal Inspection Respiratory: Chest Non-Tender, Lungs Clear, No Accessory Muscle Use, No Respiratory Distress, Normal Breath Sounds Cardiovascular: No Edema, No JVD, No Murmur, No Gallop, Normal Peripheral Pulses, Regular Rate/Rhythm Breast Exam: Deferred Gastrointestinal: Other (Evaluation of right leg was relatively unremarkable. Patient complains of pain at the medial aspect of the distal femur as well as near the groin. No signs of infection. No swelling.) Genitalia: Deferred Pelvic: Deferred Rectal: Deferred Extremities: No calf tenderness, Normal capillary refill, Normal inspection, No pedal edema Neurologic: Alert, No Motor Deficits, Normal Affect, Normal Mood, No Sensory Deficits Cerebellar Function: Normal Reflexes: Normal Skin: Dry, Normal Color, Warm Lymphatic: No Adenopathy Was a procedure done? Was a procedure done?: No Differential Diagnosis EXT Differential Diagnosis: Cellulitis, Other (Electrolyte abnormality) Other Differential Diagnosis peripheral arterial disease, X-Ray, Labs, Meds, VS Vital Signs Date Time Temp Pulse Resp B/P (MAP) Pulse Ox O2 Delivery O2 Flow Rate FiO2 09/22/24 22:10 83 18 95 Room Air 09/22/24 22:10 98.5 83 18 186/86 (119) 95 98.5 09/22/24 22:07 186/86 09/22/24 20:40 98.0 85 18 148/94 (112) 97 98.0 Lab Test 09/22/24 21:13 Range/Units White Blood Count 4.7 4.4-10.8 10^3/uL Red Blood Count 3.90 L 4.0-5.20 10^6/uL Hemoglobin 10.7 L 12.2-16.2 g/dL Hematocrit 34.1 L 36.0-46.0 % Mean Corpuscular Volume 87.4 80.0-100.0 fL Mean Corpuscular Hemoglobin 27.5 L 28.0-32.0 pg Mean Corpuscular Hemoglobin Concent 31.4 L 32.0-36.0 g/dL Red Cell Distribution Width 24.6 H 11.8-14.3 % Platelet Count 287 140-450 10^3/uL Mean Platelet Volume 9.0 6.9-10.8 fL Neutrophils (%) (Auto) 53.9 37.0-80.0 % Lymphocytes (%) (Auto) 24.8 10.0-50.0 % Monocytes (%) (Auto) 7.6 0.0-12.0 % Eosinophils (%) (Auto) 12.6 H 0.0-7.0 % Basophils (%) (Auto) 1.1 0.0-2.0 % Neutrophils # (Auto) 2.5 1.6-8.6 10 ^3/uL Lymphocytes # (Auto) 1.2 0.4-5.4 10 ^3/uL Monocytes # (Auto) 0.4 0-1.3 10 ^3/uL Eosinophils # (Auto) 0.6 0-0.8 10 ^3/uL Basophils # (Auto) 0 0-0.2 10 ^3/uL Nucleated Red Blood Cells 0.2 % Sodium Level 140 136-145 mmol/L Potassium Level 3.8 3.5-5.1 mmol/L Chloride Level 113 H 98-107 mmol/L Carbon Dioxide Level 22 20-31 mmol/L Anion Gap 5 5-15 Blood Urea Nitrogen 19 9-23 mg/dL Creatinine 0.80 0.550-1.02 mg/dL Glomerular Filtration Rate Calc 79 >90 mL/min BUN/Creatinine Ratio 23.8 H 10.0-20.0 Serum Glucose 97 74-106 mg/dL Lactic Acid Level 0.9 0.4-2.0 mmol/L Calcium Level 9.3 8.7-10.4 mg/dL Total Bilirubin 0.2 0.2-1.0 mg/dL Aspartate Amino Transferase (AST) 9 L 13-40 U/L Alanine Aminotransferase (ALT) < 9 7-40 U/L Alkaline Phosphatase 123 H 46-116 U/L Total Protein 7.3 5.7-8.2 g/dL Albumin 3.8 3.2-4.8 g/dL Current Medications Medications (Trade) Dose Ordered Sig/Bebo Route Start Time Stop Time Status Last Admin Gabapentin (Neurontin Capsule) 600 mg ONCE ONCE PO 09/22/24 21:00 09/22/24 21:01 DC 09/22/24 22:07 Clonidine HCl (Catapres Tablet) 0.2 mg ONCE ONCE PO 09/22/24 22:15 09/22/24 22:16 DC 09/22/24 22:07 X-Ray, Labs, Meds, VS Comment All studies performed the ED were evaluated by me personally. Serum laboratories were unremarkable for any systemic process. Patient appears to be having postoperative neuropathic pain concerns. Patient states has been relief with gabapentin. I will send the patient home with an advanced pain medication and they advised him to follow up with the primary care provider for long-term management. Time of 1ST Reevaluation: 22:30 Reevaluation 1ST: Improved Consultation: PCP Patient Education/Counseling: Diagnosis, Treatment Family Education/Counseling: Diagnosis, Treatment Departure 1 Departure Time of Disposition: 22:30 Impression: Primary Impression: Postoperative pain Disposition: HOME / SELF CARE / HOMELESS Condition: Stable Additional Instructions: Advised patient utilize pain medication as needed and additionally, patient should follow up with the primary care provider for discussions related to continuing postoperative pain concerns. e-Prescriptions Tramadol Hcl (Tramadol Hcl) 50 Mg Tab 50 MG PO Q8HP PRN, #20 TAB Prov: GET AGUILAR PAC 09/22/24 Discharged With: Self, Relative Critical Care Note Critical Care Time?: No Stability Stability form required: No Heart Score Heart Score: Heart Score Response (Comments) Value History N/A 0 EKG N/A 0 Age N/A 0 Risk Factors N/A 0 Troponin N/A 0 Total 0 I personally scribed for GET AGUILAR PAC ([email or web address]) on 09/22/24 at 21:07. Electronically submitted by Martina Belcher ([email or web address]). I personally scribed for GET AGUILAR PAC ([email or web address]) on 09/22/24 at 21:11. Electronically submitted by Martina Belcher ([email or web address]). GET AGUILAR PAC Sep 22, 2024 21:07
[2024-09-22 21:42] LABS: Basophils # (auto) 0 10 ^3/uL (0-0.2); Basophils % (auto) 1.1 % (0.0-2.0); Eosinophils # (auto) 0.6 10 ^3/uL (0-0.8); Eosinophils % (auto) 12.6 % (0.0-7.0); Hematocrit 34.1 % (36.0-46.0); Hemoglobin 10.7 g/dL (12.2-16.2); Lymphocytes # (auto) 1.2 10 ^3/uL (0.4-5.4); Lymphocytes % (auto) 24.8 % (10.0-50.0); Mean Corpuscular Hemoglobin 27.5 pg (28.0-32.0); Mean Corpuscular Hgb Conc. 31.4 g/dL (32.0-36.0); Mean Corpuscular Volume 87.4 fL (80.0-100.0); Monocytes # (auto) 0.4 10 ^3/uL (0-1.3); Monocytes % (auto) 7.6 % (0.0-12.0); Neutrophils # (auto) 2.5 10 ^3/uL (1.6-8.6); Neutrophils % (auto) 53.9 % (37.0-80.0); Nucleated Red Blood Cells % 0.2 %; Platelet Count (auto) 287 10^3/uL (140-450); White Blood Cell 4.7 10^3/uL (4.4-10.8)
[2024-09-22 21:46] LABS: Red Cell Distribution Width 24.6 % (11.8-14.3)
[2024-09-22 21:52] LABS: Albumin 3.8 g/dL (3.2-4.8); Anion Gap 5 (5-15); BUN/Creatinine Ratio 23.8 (10.0-20.0); Blood Urea Nitrogen 19 mg/dL (9-23); Calcium 9.3 mg/dL (8.7-10.4); Carbon Dioxide 22 mmol/L (20-31); Glucose 97 mg/dL (74-106); Potassium 3.8 mmol/L (3.5-5.1); Sodium 140 mmol/L (136-145); Total Protein 7.3 g/dL (5.7-8.2)
[2024-09-22 21:54] LABS: Alanine Aminotransferase < 9 U/L (7-40); Alkaline Phosphatase 123 U/L (46-116); Aspartate Aminotransferase 9 U/L (13-40); Bilirubin, Total 0.2 mg/dL (0.2-1.0); Chloride 113 mmol/L (98-107)
[2024-09-22] MEDS: cloNIDine HCL 0.1 MG TAB PO ONE (22:07)
[2024-09-22] MEDS: GABAPENTIN 300 MG CAP PO ONE (22:07)
[2024-09-22 22:10] VITALS: BP 186/86; PULSE 83; RESP 18; TEMP 98.5; O2SAT 95
[2024-09-22] MEDS ORDERED: TRAM50TA2 PO (22:31)
== END 2024-09-22 23:41 | disposition home or self-care (01) ==
LOC: ER 20:31
DX: G89.18 Other acute postprocedural pain (principal); M19.90 Unspecified osteoarthritis, unspecified site; I10 Essential (primary) hypertension; F17.210 Nicotine dependence, cigarettes, uncomplicated; F12.90 Cannabis use, unspecified, uncomplicated; I25.2 Old myocardial infarction; Z86.73 Personal history of transient ischemic attack (TIA), and cerebral infarction without residual deficits; Z90.49 Acquired absence of other specified parts of digestive tract; Z90.710 Acquired absence of both cervix and uterus; Z98.890 Other specified postprocedural states; Z88.6 Allergy status to analgesic agent; Z79.899 Other long term (current) drug therapy; Z88.2 Allergy status to sulfonamides
CPT/HCPCS: 36415; 80053; 83605; 85025

== ENCOUNTER 2024-09-29 11:18 | Inpatient (IN) | payer MEDICARE, MEDICAID ==
[~2024-09-29] VITALS: Ht 152.4 cm; Wt 67.3 kg
[~2024-09-29 11:18] MED LIST changes: +TRAM50TA2 PO
--- NOTE | 2024-09-29 11:52 | ED.PDOC ---
History of Present Illness HPI Comments 69F BIBA w/ prior Hx of MT, TIA, Anemia, HTN, and Stents placed in November which all may be associated to the c/c of MT. Pt reports on the CP beginning yesterday and was given Nitro en rout to the ED by EMS. PMHx of Arthritis. SHx of Appendectomy, BTL, , Hernia Repair and Hysterectomy. Denies chills, fever, N/V/D, SOB, or no other associated symptoms, modifiers, recent injuries or sick contacts at this time. Time Seen by MD: 11:40 Primary Care Provider: UNKNOWN Reviewed Notes: Nurses Notes, Medications, Allergies Allergies: Coded Allergies: Acetaminophen (Verified Allergy, Severe, "body turns red" "It becomes hard to breath", 08/04/24) "body turns red" "It becomes hard to breath" Aspirin (Verified Allergy, Severe, "body turns red" "It becomes hard to breath", 08/04/24) "body turns red" "It becomes hard to breath" Sulfa Antibiotics (Verified Allergy, Unknown, 08/10/18) Home Meds Active Scripts Tramadol Hcl (Tramadol Hcl) 50 Mg Tab, 50 MG PO Q8HP PRN, #20 TAB Prov:GET AGUILAR PAC 09/22/24 Tramadol HCl (Tramadol HCl) 50 Mg Tab, 50 MG PO QID PRN, #30 TAB Prov:DAVID CORREA MD 08/11/24 Gabapentin (Gabapentin) 300 Mg Cap, 1 CAP PO TID, #90 CAP 5 Refills Prov:DAVID CORREA MD 08/11/24 Ferrous Sulfate (Iron) 325 Mg Tab, 325 MG PO BID, #180 TAB Prov:DAVID CORREA MD 08/11/24 Sucralfate (CARAFATE) 1 Gm Tab, 1 GM PO QID, #120 TAB Prov:DAVID CORREA MD 08/11/24 Pantoprazole Sodium Sesquihydr (Pantoprazole Sodium) 40 Mg Tab, 40 MG PO BID, #60 TAB Prov:DAVID CORREA MD 08/11/24 Hydrocortisone (Rectal) (Procto-Med Hc) 2.5 % Cre, 2.5 % [place] Q6HPRN PRN, #28 GRAMS 5 Refills Prov:SCOTTIE AMAYA MD 05/15/23 Hydrocodone-Acetaminophen (Hydrocodone Bitartrate/AC 5-325 mg) 1 Tab Tab, 1 TAB PO Q4HP PRN, #30 TAB Prov:SCOTTIE AMAYA MD 05/14/23 Amlodipine Besylate (NORVASC TABLET) 5 Mg Tb, 10 MG PO DAILY, #30 Prov:NADIYA REICH MD 02/10/19 Lisinopril (Lisinopril) 20 Mg Tab, 1 TAB PO DAILY, #30 TAB 5 Refills Prov:NADIYA REICH MD 02/10/19 Reported Medications Nitroglycerin (Nitrostat) 0.4 Mg Sub, 0.4 MG SL 02/08/19 Hydrocodone-Acetaminophen ([place] 5/325MG) 1 Tab Tb, 1 TAB PO Q6HR, #60 TAB 02/08/19 Vitamin B12 (Vitamin B-12) 1,000 Mcg/1 Ml Ij, 1 TAB PO DAILY 02/07/19 Information Source: Patient Mode of Arrival: EMS Severity: Moderate Timing: Hours Duration: Since onset, Hours Prehospital treatment: None Past Medical History PAST MEDICAL HISTORY: Anemia, Arthritis, HTN, [place], TIA Past Medical History (Other): Stents x December 12 Surgical History: Appendectomy, BTL, , Hernia Repair, Hysterectomy BIOINFORMATICS COMPUTER SCIENTIST History: No Pertinent BIOINFORMATICS COMPUTER SCIENTIST History Family History Family History: Reviewed,noncontributory to illness, Unknown Social History Smoker: Unknown Alcohol: Denies ETOH Use Drugs: Unknown Lives In: Home Constitutional: denies: chills, diaphoresis, fatigue, fever, malaise, sweats, weakness, others EENTM: denies: blurred vision, double vision, ear bleeding, ear discharge, ear drainage, ear pain, ear ringing, eye pain, eye redness, hearing loss, mouth pain, mouth swelling, nasal discharge, nose bleeding, nose congestion, nose pain, photophobia, tearing, throat pain, throat swelling, voice changes, others Respiratory: denies: cough, hemoptysis, orthopnea, SOB at rest, shortness of breath, SOB with excertion, stridor, wheezing, others Cardiovascular: reports: chest pain; denies: dizzy spells, diaphoresis, Dyspnea on exertion, edema, irregular heart beat, left arm pain, lightheadedness, palpitations, PND, syncope, others Gastrointestinal: denies: abdomen distended, abdominal pain, blood streaked bowels, constipated, diarrhea, dysphagia, difficulty swallowing, hematemesis, melena, nausea, poor appetite, poor fluid intake, rectal bleeding, rectal pain, vomiting, others Genitourinary: denies: abnormal vagina bleeding, burning, dyspareunia, dysuria, flank pain, frequency, hematuria, incontinence, pain, , vagina discharge , urgency, others Neurological: denies: dizziness, fainting, headache, left sided numbness, left sided weakness, numbness, paresthesia, pre-existing deficit, right sided numbness, right sided weakness, seizure, speech problems, tingling, tremors, weakness, others Musculoskeletal: denies: back pain, gout, joint pain, joint swelling, muscle pain, muscle stiffness, neck pain, others Integumetry: denies: bruises, change in color, change in hair/nails, dryness, laceration, lesions, lumps, rash, wounds, others Allergic/Immunocompromised: denies: Difficulty Healing, Frequent Infections, Hives, Itching, others Hematologic/Lymphatic: denies: anemia, blood clots, easy bleeding, easy bruising, swollen glands, others Endocrine: denies: excessive hunger, excessive sweating, excessive thirst, excessive urination, flushing, intolerance to cold, intolerance to heat, unexplained weight gain, unexplained weight loss, others Psychiatric: denies: anxiety, bipolar disorder, depression, hopeless, panic di sorder, schizophrenia, sleepless, suicidal, others All Other Systems: Reviewed and Negative Physical Exam General Appearance: Moderate Distress, Normal HEENT: Normal ENT Inspection, Pharynx Normal, TMs Normal Neck: Full Range of Motion, Non-Tender, Normal, Normal Inspection Respiratory: Chest Non-Tender, Lungs Clear, No Accessory Muscle Use, No Respiratory Distress, Normal Breath Sounds Cardiovascular: No Edema, No JVD, No Murmur, No Gallop, Normal Peripheral Pulses, Regular Rate/Rhythm Breast Exam: Deferred Gastrointestinal: No Organomegaly, Non Tender, No Pulsatile Mass, Normal Bowel Sounds, Soft Genitalia: Deferred Pelvic: Deferred Rectal: Deferred Extremities: No calf tenderness, Normal capillary refill, Normal inspection, Normal range of motion, Non-tender, No pedal edema Musculoskeletal : Apperance: Normal Neurologic: Alert, cushion cover inspector II-XII nml as Tested, No Motor Deficits, Normal Affect, Normal Mood, No Sensory Deficits Cerebellar Function: NOT DONE Reflexes: NOT DONE Skin: Dry, Normal Color, Warm Peripheral Pulses: 3+ Radial (R), 3+ Radial (L) Lymphatic: No Adenopathy Was a procedure done? Was a procedure done?: No EKG EKG : Pulse Rate (adult): 87 [place]: Normal Cardiac Rhythm: NSR Block: None Hypertrophy: None ST: Normal Differential Dx Considerations may include: Anemia Electrolyte imbalance X-Ray, Labs, Meds, VS Vital Signs Date Time Temp Pulse Resp B/P (MAP) Pulse Ox O2 Delivery O2 Flow Rate FiO2 09/29/24 14:29 98.6 84 18 125/92 (103) 97 98.6 09/29/24 13:33 183/81 09/29/24 13:21 98.3 77 16 183/81 (115) 98 98.3 09/29/24 13:21 183/81 09/29/24 12:47 197/83 09/29/24 12:39 86 18 96 Room Air 09/29/24 12:39 97.8 86 18 201/78 (119) 96 97.8 197/83 (121) 09/29/24 11:51 87 09/29/24 11:25 87 09/29/24 11:18 97.8 99 18 193/104 (133) 98 97.8 Lab Test 09/29/24 15:22 09/29/24 13:05 09/29/24 12:09 Range/Units Troponin I High Sensitivity 15 12 13 </=34 ng/L White Blood Count 4.6 4.4-10.8 10^3/uL Red Blood Count 4.28 4.0-5.20 10^6/uL Hemoglobin 11.7 L 12.2-16.2 g/dL Hematocrit 37.3 36.0-46.0 % Mean Corpuscular Volume 87.3 80.0-100.0 fL Mean Corpuscular Hemoglobin 27.4 L 28.0-32.0 pg Mean Corpuscular Hemoglobin Concent 31.3 L 32.0-36.0 g/dL Red Cell Distribution Width 24.6 H 11.8-14.3 % Platelet Count 294 140-450 10^3/uL Mean Platelet Volume 8.5 6.9-10.8 fL Neutrophils (%) (Auto) 59.4 37.0-80.0 % Lymphocytes (%) (Auto) 18.3 10.0-50.0 % Monocytes (%) (Auto) 6.2 0.0-12.0 % Eosinophils (%) (Auto) 14.6 H 0.0-7.0 % Basophils (%) (Auto) 1.5 0.0-2.0 % Neutrophils # (Auto) 2.7 1.6-8.6 10 ^3/uL Lymphocytes # (Auto) 0.8 0.4-5.4 10 ^3/uL Monocytes # (Auto) 0.3 0-1.3 10 ^3/uL Eosinophils # (Auto) 0.7 0-0.8 10 ^3/uL Basophils # (Auto) 0.1 0-0.2 10 ^3/uL Nucleated Red Blood Cells 0.1 % Sodium Level 139 136-145 mmol/L Potassium Level 4.2 3.5-5.1 mmol/L Chloride Level 109 H 98-107 mmol/L Carbon Dioxide Level 23 20-31 mmol/L Anion Gap 7 5-15 Blood Urea Nitrogen 16 9-23 mg/dL Creatinine 0.70 0.550-1.02 mg/dL Glomerular Filtration Rate Calc 93 >90 mL/min BUN/Creatinine Ratio 22.9 H 10.0-20.0 Serum Glucose 103 74-106 mg/dL Calcium Level 9.4 8.7-10.4 mg/dL Current Medications Medications (Trade) Dose Ordered Sig/Bebo Route Start Time Stop Time Status Last Admin Clonidine HCl (Catapres Tablet) 0.2 mg ONCE ONCE PO 09/29/24 12:00 09/29/24 12:01 DC 09/29/24 12:47 Amlodipine Besylate (Norvasc Tablet) 5 mg ONCE ONCE PO 09/29/24 13:30 09/29/24 13:31 DC 09/29/24 13:33 Patient alert. Complaining of chest pain. Blood pressure elevated. Was given clonidine. WBC within normal limits. EKG reviewed does not show any acute changes. Was given nitro. Reviewed her history. Explained to the patient. Continue monitoring. Time of 1ST Reevaluation: 12:10 Reevaluation 1ST: Unchanged Patient Education/Counseling: Diagnosis, Treatment, Prognosis Family Education/Counseling: No Family Present Departure 1 Departure Time of Disposition: 12:32 Impression: Primary Impression: Hypertensive emergency Additional Impression: Chest pain of unknown etiology Disposition: ADMITTED INPATIENT Admit to: Med Surg Condition: Guarded Critical Care Note Critical Care Time?: Yes (45 min-critical care time only) Stability Stability form required: No Heart Score Heart Score: Heart Score Response (Comments) Value History Slightly Suspicious 0 EKG Normal 0 Age >65 2 Risk Factors >3 or Hx ASHD 2 Troponin Normal limit 0 Total 4 I personally scribed for MARLENE GOMEZ MD ([email or web address]) on 09/29/24 at 11:51. Electronically submitted by Alfonso Zhao ([email or web address]). MARLENE GOMEZ MD Sep 29, 2024 11:51
[2024-09-29 12:19] LABS: Basophils # (auto) 0.1 10 ^3/uL (0-0.2); Basophils % (auto) 1.5 % (0.0-2.0); Eosinophils # (auto) 0.7 10 ^3/uL (0-0.8); Eosinophils % (auto) 14.6 % (0.0-7.0); Hematocrit 37.3 % (36.0-46.0); Hemoglobin 11.7 g/dL (12.2-16.2); Lymphocytes # (auto) 0.8 10 ^3/uL (0.4-5.4); Lymphocytes % (auto) 18.3 % (10.0-50.0); Mean Corpuscular Hemoglobin 27.4 pg (28.0-32.0); Mean Corpuscular Hgb Conc. 31.3 g/dL (32.0-36.0); Mean Corpuscular Volume 87.3 fL (80.0-100.0); Monocytes # (auto) 0.3 10 ^3/uL (0-1.3); Monocytes % (auto) 6.2 % (0.0-12.0); Neutrophils # (auto) 2.7 10 ^3/uL (1.6-8.6); Neutrophils % (auto) 59.4 % (37.0-80.0); Nucleated Red Blood Cells % 0.1 %; Platelet Count (auto) 294 10^3/uL (140-450); Red Blood Cells 4.28 10^6/uL (4.0-5.20); Red Cell Distribution Width 24.6 % (11.8-14.3); White Blood Cell 4.6 10^3/uL (4.4-10.8)
[2024-09-29] MEDS: NITROGLYCERIN 0.4 MG SL TAB SL ONE (12:45)
[2024-09-29] MEDS: cloNIDine HCL 0.1 MG TAB PO ONE (12:47)
[2024-09-29 12:50] LABS: Potassium 4.2 mmol/L (3.5-5.1); Sodium 139 mmol/L (136-145)
[2024-09-29 12:51] LABS: Anion Gap 7 (5-15); Calcium 9.4 mg/dL (8.7-10.4)
[2024-09-29 12:52] LABS: Chloride 109 mmol/L (98-107)
[2024-09-29 12:56] LABS: BUN/Creatinine Ratio 22.9 (10.0-20.0); Blood Urea Nitrogen 16 mg/dL (9-23); Glucose 103 mg/dL (74-106)
[2024-09-29 12:59] LABS: Carbon Dioxide 23 mmol/L (20-31)
[2024-09-29] MEDS: amLODIPine BESYLATE 5 MG TAB PO ONE (13:33)
[2024-09-29] MEDS ORDERED: ONDANSETRON HCL 4 MG/2 ML VIAL IV PRN (15:45)
[2024-09-29] MEDS ORDERED: MORPHINE SULFATE INJ 2 MG/ml SYRG IV PRN (15:45)
[2024-09-29] MEDS ORDERED: ACETAMINOPHEN 325 MG TAB PO PRN (15:45)
[2024-09-29] MEDS ORDERED: HYDROcodone-ACET 5/325MG TAB PO PRN ×2 (15:45)
[2024-09-29] MEDS ORDERED: NITROGLYCERIN 0.4 MG SL TAB SL PRN (15:45)
--- NOTE | 2024-09-29 15:50 | DVHHP2 ---
Admitting Diagnosis: Chest pain History of Present Illness 69F BIBA w/ prior Hx of [place], TIA, Anemia, HTN, and Stents placed in November which all may be associated to the c/c of [place]. Pt reports on the CP beginning yesterday and was given Nitro en rout to the ED by EMS. PMHx of Arthritis. SHx of Appendectomy, BTL, , Hernia Repair and Hysterectomy. Denies chills, fever, N/V/D, SOB, or no other associated symptoms, modifiers, recent injuries or sick contacts at this time. PAST MEDICAL HISTORY: Anemia, Arthritis, HTN, [place], TIA Past Medical History (Other): Stents x December 12 Surgical History: Appendectomy, BTL, , Hernia Repair, Hysterectomy CLIENT SERVICE PROFESSIONAL History: No Pertinent CLIENT SERVICE PROFESSIONAL History Family History Family History: Reviewed,noncontributory to illness, Unknown Social History Smoker: Unknown Alcohol: Denies ETOH Use Drugs: Unknown Lives In: Home Patient Family History: AIDS G8 BROTHER G8 BROTHER G8 BROTHER G8 SISTER Asthma Cancer G8 FATHER FH: brain tumor G8 BROTHER FH: breast cancer G8 FATHER FH: pancreatic cancer G8 MOTHER FH: pneumonia Family history: Coronary thrombosis Family history: Diabetes mellitus G8 MOTHER G8 FATHER Hypertension Allergies: Coded Allergies: Acetaminophen (Verified Allergy, Severe, "body turns red" "It becomes hard to breath", 08/04/24) "body turns red" "It becomes hard to breath" Aspirin (Verified Allergy, Severe, "body turns red" "It becomes hard to breath", 08/04/24) "body turns red" "It becomes hard to breath" Sulfa Antibiotics (Verified Allergy, Unknown, 08/10/18) Home Meds Active Scripts Tramadol Hcl (Tramadol Hcl) 50 Mg Tab, 50 MG PO Q8HP PRN, #20 TAB Prov:GET AGUILAR PAC 09/22/24 Tramadol HCl (Tramadol HCl) 50 Mg Tab, 50 MG PO QID PRN, #30 TAB Prov:DAVID CORREA MD 08/11/24 Gabapentin (Gabapentin) 300 Mg Cap, 1 CAP PO TID, #90 CAP 5 Refills Prov:DAVID CORREA MD 08/11/24 Ferrous Sulfate (Iron) 325 Mg Tab, 325 MG PO BID, #180 TAB Prov:DAVID CORREA MD 08/11/24 Sucralfate (CARAFATE) 1 Gm Tab, 1 GM PO QID, #120 TAB Prov:DAVID CORREA MD 08/11/24 Pantoprazole Sodium Sesquihydr (Pantoprazole Sodium) 40 Mg Tab, 40 MG PO BID, #60 TAB Prov:DAVID CORREA MD 08/11/24 Hydrocortisone (Rectal) (Procto-Med Hc) 2.5 % Cre, 2.5 % [place] Q6HPRN PRN, #28 GRAMS 5 Refills Prov:SCOTTIE AMAYA MD 05/15/23 Hydrocodone-Acetaminophen (Hydrocodone Bitartrate/AC 5-325 mg) 1 Tab Tab, 1 TAB PO Q4HP PRN, #30 TAB Prov:SCOTTIE AMAYA MD 05/14/23 Amlodipine Besylate (NORVASC TABLET) 5 Mg Tb, 10 MG PO DAILY, #30 Prov:NADIYA REICH MD 02/10/19 Lisinopril (Lisinopril) 20 Mg Tab, 1 TAB PO DAILY, #30 TAB 5 Refills Prov:NADIYA REICH MD 02/10/19 Reported Medications Nitroglycerin (Nitrostat) 0.4 Mg Sub, 0.4 MG SL 02/08/19 Hydrocodone-Acetaminophen ([place] 5/325MG) 1 Tab Tb, 1 TAB PO Q6HR, #60 TAB 02/08/19 Vitamin B12 (Vitamin B-12) 1,000 Mcg/1 Ml Ij, 1 TAB PO DAILY 02/07/19 Current Medications Current Medications Medications (Trade) Dose Ordered Sig/Bebo Route PRN Reason Start Time Stop Time Status Last Admin Amlodipine Besylate (Norvasc Tablet) 10 mg DAILY PO 09/30/24 10:00 UNV Gabapentin (Neurontin Capsule) 300 mg TID PO 09/29/24 22:00 UNV Acetaminophen/ Hydrocodone Bitart ([place] 5/325MG Tab) 1 tab Q4HP PRN PO moderate pain 09/29/24 15:45 UNV Pantoprazole Sodium (Protonix Tablet) 40 mg BID PO 09/29/24 22:00 UNV Sucralfate (Carafate Tab) 1 gm QID PO 09/29/24 18:00 UNV Patient Own Medication 325 mg BID PO 09/29/24 22:00 UNV Patient Own Medication 2.5 % Q6HPRN PRN [place] hemorrhoid 09/29/24 15:45 UNV Acetaminophen (Tylenol Tablet) 650 mg Q6HP PRN PO PAIN SCALE 1-3 OR TEMP>100.4 09/29/24 15:45 UNV Acetaminophen/ Hydrocodone Bitart ([place] 5/325MG Tab) 1 tab Q4HP PRN PO MODERATE PAIN (4-6 PAIN SCALE) 09/29/24 15:45 UNV Ondansetron HCl (Zofran) 4 mg Q4HP PRN IV NAUSEA / VOMITING 09/29/24 15:45 UNV Nitroglycerin (Ntrostat Sublingual) 0.4 mg Q5MINP PRN SL FOR CHEST PAIN 09/29/24 15:45 UNV Morphine Sulfate 2 mg Q30M PRN IV FOR CHEST PAIN 09/29/24 15:45 UNV Hydralazine HCl (Apresoline Injection) 10 mg Q4H PRN IV SBP > 165 09/29/24 15:45 UNV Vital Signs Vital Signs Date Time Temp Pulse Resp B/P (MAP) Pulse Ox O2 Delivery O2 Flow Rate FiO2 09/29/24 14:29 98.6 84 18 125/92 (103) 97 98.6 09/29/24 12:39 Room Air Physical Exam Generally-69 years old, well nourished well developed. No apparent distress HEENT-atraumatic normocephalic Heart-regular rate and rhythm Lungs clear to auscultate bilaterally Abdomen soft nontender nondistended Musculoskeletal-no edema cyanosis Neuro-AO x3, no focal deficits Results Labs Test 09/29/24 15:22 09/29/24 12:09 Range/Units White Blood Count 4.6 4.4-10.8 10^3/uL Red Blood Count 4.28 4.0-5.20 10^6/uL Hemoglobin 11.7 L 12.2-16.2 g/dL Hematocrit 37.3 36.0-46.0 % Mean Corpuscular Volume 87.3 80.0-100.0 fL Mean Corpuscular Hemoglobin 27.4 L 28.0-32.0 pg Mean Corpuscular Hemoglobin Concent 31.3 L 32.0-36.0 g/dL Red Cell Distribution Width 24.6 H 11.8-14.3 % Platelet Count 294 140-450 10^3/uL Mean Platelet Volume 8.5 6.9-10.8 fL Neutrophils (%) (Auto) 59.4 37.0-80.0 % Lymphocytes (%) (Auto) 18.3 10.0-50.0 % Monocytes (%) (Auto) 6.2 0.0-12.0 % Eosinophils (%) (Auto) 14.6 H 0.0-7.0 % Basophils (%) (Auto) 1.5 0.0-2.0 % Neutrophils # (Auto) 2.7 1.6-8.6 10 ^3/uL Lymphocytes # (Auto) 0.8 0.4-5.4 10 ^3/uL Monocytes # (Auto) 0.3 0-1.3 10 ^3/uL Eosinophils # (Auto) 0.7 0-0.8 10 ^3/uL Basophils # (Auto) 0.1 0-0.2 10 ^3/uL Nucleated Red Blood Cells 0.1 % Sodium Level 139 136-145 mmol/L Potassium Level 4.2 3.5-5.1 mmol/L Chloride Level 109 H 98-107 mmol/L Carbon Dioxide Level 23 20-31 mmol/L Anion Gap 7 5-15 Blood Urea Nitrogen 16 9-23 mg/dL Creatinine 0.70 0.550-1.02 mg/dL Glomerular Filtration Rate Calc 93 >90 mL/min BUN/Creatinine Ratio 22.9 H 10.0-20.0 Serum Glucose 103 74-106 mg/dL Calcium Level 9.4 8.7-10.4 mg/dL Primary Diagnosis Chest pain rule out ACS Plan Prior [place] EKG normal sinus rhythm Chest pain rule out Cardiac diet for now NPO midnight Nuclear stress test Resume home meds Heparin for DVT prophylaxis PPI for GI prophylaxis Full code Plan discussed with: Patient Problems List: (1) Chest pain, rule out acute myocardial infarction Status: Acute Date of Service: Sep 29, 2024 Billing Provider: KAYLIN MCCLAIN MD Common Visit Codes: [id number] INP/OBS CARE (MOD) KAYLIN MCCLAIN MD Sep 29, 2024 15:50
[2024-09-29] MEDS: SUCRALFATE 1 GM TAB PO SCH (20:07)
[2024-09-29 20:15] VITALS: PULSE 85; RESP 18; O2SAT 100
[2024-09-29 22:40] VITALS: BP 129/69; PULSE 82; RESP 18; TEMP 97.6; O2SAT 98
[2024-09-29 22:41] VITALS: PULSE 94
[2024-09-29] MEDS: FERROUS SULFATE 325mg EC TAB PO SCH (22:48)
[2024-09-29] MEDS: GABAPENTIN 300 MG CAP PO SCH (22:48)
[2024-09-29] MEDS: PANTOPRAZOLE 40 MG TAB PO SCH (22:48)
[2024-09-29 23:32] LABS: Urine Bacteria None Seen /hpf (None Seen)
[2024-09-29 23:41] VITALS: BP 129/69; PULSE 82; RESP 18; TEMP 97.6; O2SAT 98
[2024-09-30] VITALS (8 sets, daily range): BP systolic 124–201; BP diastolic 61–81; PULSE 70–106; RESP 16–20; TEMP 97.4–98; O2SAT 93–99
[2024-09-30 00:03] LABS: Urine Blood Negative /uL (Negative); Urine Budding Yeast OCCASIONAL /hpf (None Seen); Urine Clarity Turbid (Clear); Urine Color Light-Yellow (Yellow); Urine Mucus FEW (None Seen); Urine Protein, UAD Negative (Negative); Urine Specific Gravity 1.018 (1.001-1.035); Urine Squamous Epithelial Cell FEW /hpf (<5); Urine Urobilinogen Normal (Negative); Urine WBC 1 /HPF (0-5); Urine pH 5.5 (5.0-9.0)
[2024-09-30] MEDS: traMADol HCL 50 MG TAB PO ONE (03:23)
[2024-09-30 06:07] LABS: Albumin 3.5 g/dL (3.2-4.8); Anion Gap 6 (5-15); BUN/Creatinine Ratio 26.4 (10.0-20.0); Calcium 9.6 mg/dL (8.7-10.4); Carbon Dioxide 24 mmol/L (20-31); Potassium 4.1 mmol/L (3.5-5.1); Sodium 140 mmol/L (136-145); Total Protein 6.9 g/dL (5.7-8.2)
[2024-09-30 06:08] LABS: Alanine Aminotransferase 9 U/L (7-40); Alkaline Phosphatase 117 U/L (46-116); Aspartate Aminotransferase 10 U/L (13-40); Bilirubin, Total 0.2 mg/dL (0.2-1.0); Blood Urea Nitrogen 24 mg/dL (9-23); Chloride 110 mmol/L (98-107); Glucose 113 mg/dL (74-106)
[2024-09-30] MEDS ORDERED: HYDROCORTISONE 2.5% TOPICAL CREAM 30GM TUBE PR PRN (07:15)
[2024-09-30 07:44] LABS: Hematocrit 32.8 % (36.0-46.0); Hemoglobin 10.5 g/dL (12.2-16.2); Mean Corpuscular Hemoglobin 27.4 pg (28.0-32.0); Mean Corpuscular Hgb Conc. 32.1 g/dL (32.0-36.0); Mean Corpuscular Volume 85.2 fL (80.0-100.0); Platelet Count (auto) 273 10^3/uL (140-450); Red Blood Cells 3.85 10^6/uL (4.0-5.20); Red Cell Distribution Width 24.4 % (11.8-14.3); White Blood Cell 4.5 10^3/uL (4.4-10.8)
[2024-09-30 07:46] LABS: Band Neutrophils % (manual) 0; Basophils % (manual) 0 (0.0-2.0); Blast Cells 0; Metamyelocytes % 0; Myelocytes % 0; Promyelocytes % 0; Reactive Lymphocytes 0
[2024-09-30 08:27] LABS: Anisocytosis Slight; Eosinophils % (manual) 19 (0-7); Lymphocytes % (manual) 20 (10.0-50.0); Monocytes % (manual) 4 (0-12)
[2024-09-30 08:28] LABS: Platelet Estimate Adequate
[2024-09-30] MEDS: hydrALAZINE HCL 20 MG/ML VL IV PRN (08:41)
[2024-09-30] MEDS: amLODIPine BESYLATE 5 MG TAB PO SCH (10:00)
--- NOTE | 2024-09-30 13:14 | DVHINCON2 ---
MARCELLUS MANCILLA [facility] 09/30/24 1314: Date Seen: Sep 30, 2024 Referring Physician MD [place] Reason for Consultation Chest pain History of Present Illness This is a 69-year-old female who presented to the emergency room via EMS with a chief complaint of chest pain. Describes her chest pain as substernal, radiating to the left inframammary area, sharp in nature, non provoked, and with two episodes lasting approximately 10 minutes each. Denies shortness of breath, diaphoresis, palpitations, dizziness, or syncopal events. The patient reports undergoing a cardiac catheterization and coronary angiogram including a successful PTCA with six stents placed at [facility] on November,. Per patient, she is only on single antiplatelet therapy with aspirin. Denies following up in the outpatient setting with the primary fixed assets accountant. A 12 lead electrocardiogram revealing normal sinus rhythm. Serial troponin levels are negative. Significant medical history includes severe coronary artery disease status post PTCA times 6 ORESTES on ASA only, peripheral arterial disease of the right SFA consistent with 75% stenosis and history of RLE stent on 03/2024, hypertension, CVA/TIA with left-sided hemiparesis, severe rheumatoid arthritis the contractions, psoriasis, anemia, enlarged ventral hernia, and current tobacco use including a 60 pack-year history. Past Medical History Past medical history reviewed. No other significant than mentioned above. Past Surgical History PTCA times 6 ORESTES, 11/2023 INTELLIGENCE APPLICATIONS of the RLE, 03/2024 Colon polyp removal Family History: AIDS G8 BROTHER G8 BROTHER G8 BROTHER G8 SISTER Asthma Cancer G8 FATHER FH: brain tumor G8 BROTHER FH: breast cancer G8 FATHER FH: pancreatic cancer G8 MOTHER FH: pneumonia Family history: Coronary thrombosis Family history: Diabetes mellitus G8 MOTHER G8 FATHER Hypertension Family History Family history reviewed. Social History Denies the use of illicit drugs and alcohol. Admits to tobacco use, one pack of cigarettes per day. Allergies: Coded Allergies: Acetaminophen (Verified Allergy, Severe, "body turns red" "It becomes hard to breath", 08/04/24) "body turns red" "It becomes hard to breath" Aspirin (Verified Allergy, Severe, "body turns red" "It becomes hard to breath", 08/04/24) "body turns red" "It becomes hard to breath" Nicotine (Verified Allergy, Severe, 09/30/24) "hives and difficulty breathing" Sulfa Antibiotics (Verified Allergy, Unknown, 08/10/18) Home Meds Active Scripts Tramadol Hcl (Tramadol Hcl) 50 Mg Tab, 50 MG PO Q8HP PRN, #20 TAB Prov:GET AGUILAR PAC 09/22/24 Tramadol HCl (Tramadol HCl) 50 Mg Tab, 50 MG PO QID PRN, #30 TAB Prov:DAVID CORREA MD 08/11/24 Gabapentin (Gabapentin) 300 Mg Cap, 1 CAP PO TID, #90 CAP 5 Refills Prov:DAVID CORREA MD 08/11/24 Ferrous Sulfate (Iron) 325 Mg Tab, 325 MG PO BID, #180 TAB Prov:DAVID CORREA MD 08/11/24 Sucralfate (CARAFATE) 1 Gm Tab, 1 GM PO QID, #120 TAB Prov:DAVID CORREA MD 08/11/24 Pantoprazole Sodium Sesquihydr (Pantoprazole Sodium) 40 Mg Tab, 40 MG PO BID, #60 TAB Prov:DAVID CORREA MD 08/11/24 Hydrocortisone (Rectal) (Procto-Med Hc) 2.5 % Cre, 2.5 % [place] Q6HPRN PRN, #28 GRAMS 5 Refills Prov:SCOTTIE AMAYA MD 05/15/23 Hydrocodone-Acetaminophen (Hydrocodone Bitartrate/AC 5-325 mg) 1 Tab Tab, 1 TAB PO Q4HP PRN, #30 TAB Prov:SCOTTIE AMAYA MD 05/14/23 Amlodipine Besylate (NORVASC TABLET) 5 Mg Tb, 10 MG PO DAILY, #30 Prov:NADIYA REICH MD 02/10/19 Lisinopril (Lisinopril) 20 Mg Tab, 1 TAB PO DAILY, #30 TAB 5 Refills Prov:NADIYA REICH MD 02/10/19 Reported Medications Nitroglycerin (Nitrostat) 0.4 Mg Sub, 0.4 MG SL 02/08/19 Hydrocodone-Acetaminophen ([place] 5/325MG) 1 Tab Tb, 1 TAB PO Q6HR, #60 TAB 02/08/19 Vitamin B12 (Vitamin B-12) 1,000 Mcg/1 Ml Ij, 1 TAB PO DAILY 02/07/19 Home Meds Home medications reviewed. Current Medications Current Medications Medications (Trade) Dose Ordered Sig/Bebo Route PRN Reason Start Time Stop Time Status Last Admin Amlodipine Besylate (Norvasc Tablet) 10 mg DAILY PO 09/30/24 10:00 Gabapentin (Neurontin Capsule) 300 mg TID PO 09/29/24 22:00 09/29/24 22:48 Acetaminophen/ Hydrocodone Bitart ([place] 5/325MG Tab) 1 tab Q4HP PRN PO moderate pain 09/29/24 15:45 UNV Pantoprazole Sodium (Protonix Tablet) 40 mg BID PO 09/29/24 22:00 09/29/24 22:48 Sucralfate (Carafate Tab) 1 gm QID PO 09/29/24 18:00 09/29/24 22:48 Ferrous Sulfate 325 mg BID PO 09/29/24 22:00 09/29/24 22:48 Hydrocortisone (Hydrocortisone 2.5% Cream) 2.5 applic Q6HPRN PRN [place] hemorrhoid 09/30/24 07:15 Acetaminophen (Tylenol Tablet) 650 mg Q6HP PRN PO PAIN SCALE 1-3 OR TEMP>100.4 09/29/24 15:45 UNV Acetaminophen/ Hydrocodone Bitart ([place] 5/325MG Tab) 1 tab Q4HP PRN PO MODERATE PAIN (4-6 PAIN SCALE) 09/29/24 15:45 UNV Ondansetron HCl (Zofran) 4 mg Q4HP PRN IV NAUSEA / VOMITING 09/29/24 15:45 Nitroglycerin (Ntrostat Sublingual) 0.4 mg Q5MINP PRN SL FOR CHEST PAIN 09/29/24 15:45 Morphine Sulfate 2 mg Q30M PRN IV FOR CHEST PAIN 09/29/24 15:45 Hydralazine HCl (Apresoline Injection) 10 mg Q4H PRN IV SBP > 165 09/29/24 15:45 09/30/24 08:41 Review of Systems Constitutional: No symptom reported Ears, Nose, & Throat: No symptom reported Eyes: No symptom reported Neurological: No symptoms reported Pulmonary/Respiratory: No symptom reported Cardiovascular: Chest pain Gastrointestinal: No symptom reported Genitourinary: No symptom reported Musculoskeletal: No symptom reported Skin: No symptom reported Psychiatric: No symptom reported Endocrine: No symptom reported Hemotologic/Lymphatic: No symptom reported Vital Signs Vital Signs Date Time Temp Pulse Resp B/P (MAP) Pulse Ox O2 Delivery O2 Flow Rate FiO2 09/30/24 09:00 97.4 70 20 201/81 (121) 99 97.4 09/30/24 08:00 Room Air* 0 21 Physical Exam General Appearance: Cooperative. Chronically ill. Contracted to upper and lower extremities. Poor historian. In no acute distress Head Exam: Normal inspection Neck Exam: Normal inspection. Non-tender. Normal alignment Pulmonary/Respiratory: Chest non-tender. Clear bilateral breath sounds Cardiovascular/Chest: Regular rate and rhythm. S1, S2. NSR with PACs. No murmurs. No JVD. Peripheral Pulses: 2+ Radial (R). 2+ Radial (L). 2+ Pedal (R). 2+ Pedal (L) Abdominal Exam: Normal bowel sounds. Soft. Nontender. No hepatospenomegaly. No masses Ankle Exam: Negative ankle edema Lower extremities: Negative lower extremity edema Neuro/Mental Status: A&O x3. Coherent but poor historian Thoughts/Psych: Normal thought pattern. Appropriate mood and affect. Appearance: In no acute distress Skin Exam: Bilateral lower extremity with multiple lesions/superficial scratches Labs/Diagnostic Data Labs Test 09/30/24 04:59 09/29/24 23:10 09/29/24 15:22 09/29/24 12:09 Range/Units White Blood Count 4.5 4.4-10.8 10^3/uL Red Blood Count 3.85 L 4.0-5.20 10^6/uL Hemoglobin 10.5 L 12.2-16.2 g/dL Hematocrit 32.8 #L 36.0-46.0 % Mean Corpuscular Volume 85.2 80.0-100.0 fL Mean Corpuscular Hemoglobin 27.4 L 28.0-32.0 pg Mean Corpuscular Hemoglobin Concent 32.1 32.0-36.0 g/dL Red Cell Distribution Width 24.4 H 11.8-14.3 % Platelet Count 273 140-450 10^3/uL Mean Platelet Volume 9.4 6.9-10.8 fL Neutrophils (%) (Auto) 37.0-80.0 % Lymphocytes (%) (Auto) 10.0-50.0 % Monocytes (%) (Auto) 0.0-12.0 % Basophils (%) (Auto) 0.0-2.0 % Neutrophils # (Auto) 1.6-8.6 10 ^3/uL Lymphocytes # (Auto) 0.4-5.4 10 ^3/uL Monocytes # (Auto) 0-1.3 10 ^3/uL Differential Total Cells Counted 100.0 100 Neutrophils % (Manual) 57 37.0-80.0 Band Neutrophils % (Manual) 0 Lymphocytes % (Manual) 20 10.0-50.0 Monocytes % (Manual) 4 0-12 Eosinophils % (Manual) 19 H 0-7 Basophils % (Manual) 0 0.0-2.0 Metamyelocytes % (manual) 0 Myelocytes % (Manual) 0 Promyelocytes % (Manual) 0 Blast Cells % (Manual) 0 Reactive Lymphocytes 0 Platelet Estimate Adequate Anisocytosis (manual) Slight Sodium Level 140 136-145 mmol/L Potassium Level 4.1 3.5-5.1 mmol/L Chloride Level 110 H 98-107 mmol/L Carbon Dioxide Level 24 20-31 mmol/L Anion Gap 6 5-15 Blood Urea Nitrogen 24 H 9-23 mg/dL Creatinine 0.91 0.550-1.02 mg/dL Glomerular Filtration Rate Calc 68 >90 mL/min BUN/Creatinine Ratio 26.4 H 10.0-20.0 Serum Glucose 113 H 74-106 mg/dL Calcium Level 9.6 8.7-10.4 mg/dL Total Bilirubin 0.2 0.2-1.0 mg/dL Aspartate Amino Transferase (AST) 10 L 13-40 U/L Alanine Aminotransferase (ALT) 9 7-40 U/L Alkaline Phosphatase 117 H 46-116 U/L Total Protein 6.9 5.7-8.2 g/dL Albumin 3.5 3.2-4.8 g/dL Urine Color Light-yellow Yellow Urine Clarity Turbid H Clear Urine pH 5.5 5.0-9.0 Urine Specific [place] 1.018 1.001-1.035 Urine Protein Negative Negative Urine Ketones Negative Negative Urine Blood Negative Negative /uL Urine Nitrite Negative Negative Urine Bilirubin Negative Negative Urine Urobilinogen Normal Negative mg/dL Urine Leukocyte Esterase Negative Negative /uL Urine RBC <1 0 - 4 /hpf Urine Microscopic WBC 1 0-5 /HPF Urine Squamous Epithelial Cells Few <5 /hpf Urine Bacteria None seen None Seen /hpf Urine Mucus Few None Seen Urine Yeast (Budding) Occasional None Seen /hpf Urine Glucose Normal Normal mg/dL Troponin I High Sensitivity 15 </=34 ng/L Eosinophils (%) (Auto) 14.6 H 0.0-7.0 % Eosinophils # (Auto) 0.7 0-0.8 10 ^3/uL Basophils # (Auto) 0.1 0-0.2 10 ^3/uL Nucleated Red Blood Cells 0.1 % Assessment Chest pain Severe coronary artery disease s/p PTCA x 6DES on ASA (11/2023) Peripheral arterial disease s/p RLE INTELLIGENCE APPLICATIONS (03/2024) Recent anemia requiring PRBCs CVA/TIA with left-sided hemiparesis Severe rheumatoid arthritis Psoriasis Nicotine dependence Bedbound status Plan/Recommendation (Dr. Madrid) The patient with chest pain presents with negative serial troponin levels and an unremarkable 12-lead electrocardiogram. Ischemic workup would not be prudent at this time given her recent anemia with reported GI bleed undergoing a blood transfusion. Reestablish dual-antiplatelet therapy per GI recommendations. The patient is at high-risk for in stent thrombosis or restenosis given recent cardiac interventions. We will continue further cardiac evaluation with a transthoracic echocardiogram to evaluate cardiac function. In the setting of an unremarkable echocardiogram, consider an outpatient stress test if deemed necessary. Kindly call if in need to re-consult. Thank you for allowing us to participate in this patient's care. Please call if you have any questions or concerns. This medical document was created using an electronic medical record system with voice recognition software and computerized dictation system. Although this document has been carefully reviewed, there might still be some phonetic and typographical errors. Occasional wrong-word or ``sound-alike substitutions may have occurred due to the inherent limitations of voice recognition software. These areas are purely typographical due to imperfections of the software programs and do not reflect any compromise in the patient's medical care. Please read the chart carefully and recognize, using context, where these substitutions have occurred. Plan discussed with: Patient, Other NYHA Physical activity limitations: NA Date of Service: Sep 30, 2024 Billing Provider: MARCELLUS MANCILLA [employer] Cardiology Common Codes: [id number] INP/OBS CARE (High) TRACY MADRID MD 09/30/24 1448: Family History: AIDS G8 BROTHER G8 BROTHER G8 BROTHER G8 SISTER Asthma Cancer G8 FATHER FH: brain tumor G8 BROTHER FH: breast cancer G8 FATHER FH: pancreatic cancer G8 MOTHER FH: pneumonia Family history: Coronary thrombosis Family history: Diabetes mellitus G8 MOTHER G8 FATHER Hypertension Allergies: Coded Allergies: Acetaminophen (Verified Allergy, Severe, "body turns red" "It becomes hard to breath", 08/04/24) "body turns red" "It becomes hard to breath" Aspirin (Verified Allergy, Severe, "body turns red" "It becomes hard to breath", 08/04/24) "body turns red" "It becomes hard to breath" Nicotine (Verified Allergy, Severe, 09/30/24) "hives and difficulty breathing" Sulfa Antibiotics (Verified Allergy, Unknown, 08/10/18) Home Meds Active Scripts Tramadol Hcl (Tramadol Hcl) 50 Mg Tab, 50 MG PO Q8HP PRN, #20 TAB Prov:GET AGUILAR PAC 09/22/24 Tramadol HCl (Tramadol HCl) 50 Mg Tab, 50 MG PO QID PRN, #30 TAB Prov:DAVID CORREA MD 08/11/24 Gabapentin (Gabapentin) 300 Mg Cap, 1 CAP PO TID, #90 CAP 5 Refills Prov:DAVID CORREA MD 08/11/24 Ferrous Sulfate (Iron) 325 Mg Tab, 325 MG PO BID, #180 TAB Prov:DAVID CORREA MD 08/11/24 Sucralfate (CARAFATE) 1 Gm Tab, 1 GM PO QID, #120 TAB Prov:DAVID CORREA MD 08/11/24 Pantoprazole Sodium Sesquihydr (Pantoprazole Sodium) 40 Mg Tab, 40 MG PO BID, #60 TAB Prov:DAVID CORREA MD 08/11/24 Hydrocortisone (Rectal) (Procto-Med Hc) 2.5 % Cre, 2.5 % [place] Q6HPRN PRN, #28 GRAMS 5 Refills Prov:SCOTTIE AMAYA MD 05/15/23 Hydrocodone-Acetaminophen (Hydrocodone Bitartrate/AC 5-325 mg) 1 Tab Tab, 1 TAB PO Q4HP PRN, #30 TAB Prov:SCOTTIE AMAYA MD 05/14/23 Amlodipine Besylate (NORVASC TABLET) 5 Mg Tb, 10 MG PO DAILY, #30 Prov:NADIYA REICH MD 02/10/19 Lisinopril (Lisinopril) 20 Mg Tab, 1 TAB PO DAILY, #30 TAB 5 Refills Prov:NADIYA REICH MD 02/10/19 Reported Medications Nitroglycerin (Nitrostat) 0.4 Mg Sub, 0.4 MG SL 02/08/19 Hydrocodone-Acetaminophen ([place] 5/325MG) 1 Tab Tb, 1 TAB PO Q6HR, #60 TAB 02/08/19 Vitamin B12 (Vitamin B-12) 1,000 Mcg/1 Ml Ij, 1 TAB PO DAILY 02/07/19 Plan/Recommendation pt seen and examined agree with rn medical inpatient services assessment and plan pt not taking any antiplatelet! after GI bleed needs asa daily extensive contractures, not an angio option poor prognosis extensive smoking still MARCELLUS MANCILLA Sep 30, 2024 13:14 TRACY MADRID MD Sep 30, 2024 14:48
--- NOTE | 2024-09-30 14:06 | DVHPN2 ---
Subjective PATIENT CONTINUES TO REPORT HAVING CHEST PAIN, DESCRIBED SHARP IN NATURE IN HER EPIGASTRIC/SUBSTERNAL AREA Reviewed: Care Plan, H&P, Labs, Medications Changes from previous H/P or p: No Changes General: Per HPI Objective Vitals Vital Signs Date Time Temp Pulse Resp B/P (MAP) Pulse Ox O2 Delivery O2 Flow Rate FiO2 09/30/24 09:00 97.4 70 20 201/81 (121) 99 97.4 09/30/24 08:00 Room Air* 0 21 Intake/Output Intake and Output 09/30/24 07:00 Intake Total 460 ml Balance 460 ml Intake Oral 460 ml # Voids 1 General Appearance: Alert, Oriented X3, Cooperative HEENT: Atraumatic, PERRLA Cardiovascular: Normal S1, Normal S2 Abdomen: Normal bowel sounds, Soft, No tenderness Genitourinary: No Apparent Abnormalities Musculoskeletal: Normal sensory function, Normal motor function Skin: Dry, Intact Psych/Mental Status: Mental status NL, Mood NL Medications Current Medications Medications Dose Ordered Sig/Bebo Route Start Time Stop Time Status Last Admin Dose Admin Gabapentin 300 mg TID PO 09/29/24 22:00 09/29/24 22:48 300 MG Acetaminophen/ Hydrocodone Bitart 1 tab Q4HP PRN PO 09/29/24 15:45 UNV Pantoprazole Sodium 40 mg BID PO 09/29/24 22:00 09/29/24 22:48 40 MG Sucralfate 1 gm QID PO 09/29/24 18:00 09/29/24 22:48 1 GM Ferrous Sulfate 325 mg BID PO 09/29/24 22:00 09/29/24 22:48 325 MG Hydrocortisone 2.5 applic Q6HPRN PRN [place] 09/30/24 07:15 Acetaminophen 650 mg Q6HP PRN PO 09/29/24 15:45 UNV Acetaminophen/ Hydrocodone Bitart 1 tab Q4HP PRN PO 09/29/24 15:45 UNV Ondansetron HCl 4 mg Q4HP PRN IV 09/29/24 15:45 Nitroglycerin 0.4 mg Q5MINP PRN SL 09/29/24 15:45 Morphine Sulfate 2 mg Q30M PRN IV 09/29/24 15:45 Hydralazine HCl 10 mg Q4H PRN IV 09/29/24 15:45 09/30/24 08:41 10 MG Nifedipine 60 mg DAILY PO 10/01/24 10:00 Isosorbide Mononitrate 30 mg DAILY PO 09/30/24 13:45 UNV Laboratory Results Laboratory Tests 09/30/24 04:59 Chemistry Test 09/30/24 04:59 Albumin 3.5 g/dL (3.2-4.8) Calcium Level 9.6 mg/dL (8.7-10.4) Total Protein 6.9 g/dL (5.7-8.2) LFT Test 09/30/24 04:59 Alanine Aminotransferase (ALT) 9 U/L (7-40) Alkaline Phosphatase 117 U/L (46-116) H Aspartate Amino Transferase (AST) 10 U/L (13-40) L Total Bilirubin 0.2 mg/dL (0.2-1.0) Urinalysis Test 09/29/24 23:10 Urine Color Light-yellow (Yellow) Urine Clarity Turbid (Clear) H Urine pH 5.5 (5.0-9.0) Urine Specific [place] 1.018 (1.001-1.035) Urine Protein Negative (Negative) Urine Ketones Negative (Negative) Urine Blood Negative /uL (Negative) Urine Nitrite Negative (Negative) Urine Bilirubin Negative (Negative) Urine Urobilinogen Normal mg/dL (Negative) Urine Leukocyte Esterase Negative /uL (Negative) Urine RBC <1 /hpf (0 - 4) Urine Microscopic WBC 1 /HPF (0-5) Urine Squamous Epithelial Cells Few /hpf (<5) Urine Bacteria None seen /hpf (None Seen) Urine Mucus Few (None Seen) Urine Yeast (Budding) Occasional /hpf (None Urine Glucose Normal mg/dL (Normal) Labs and/or images reviewed: Labs reviewed by me, Image(s) reviewed by me Assessment/Plan Assessment/Plan Impression: -chest pain, rule out ACS -hypertensive crisis -history of CAD with multiple stent placement -probable peptic ulcer disease -hiatal hernia -nicotine dependence -rule out GI bleed Plan: -cardiology consultation: Recommendations reviewed -FOBT -PPI -antihypertensives, add Imdur -smoking cessation education -antiplatelet therapy per Cardiology -repeat labs in a.m. Total time spent with patient discussing and formulating plan of care: 35 minutes. This medical document was created using an electronic medical record system with [employer] system. Although this document has been carefully reviewed, there may still be some phonetic and typographical errors. These areas are purely typographical due to imperfections of the software programs, and do not reflect any compromise in the patient's medical care. Plan discussed with: Patient, Other (RN) My Orders Orders - RAYSHAWN OWENS NP Procedure Category Date Status Time Stool Occult Blood LAB 09/30/24 Logged 13:44 Isosorbide PHA 09/30/24 Logged Mononitrate Tablet 13:45 Date of Service: Sep 30, 2024 Billing Provider: RAYSHAWN OWENS NP Common Visit Codes: [id number] INP/OBS CARE(HIGH) RAYSHAWN OWENS NP Sep 30, 2024 14:05
[2024-09-30] MEDS: ISOSORBIDE MONONITRATE ER 60 MG TAB PO SCH (14:42)
[2024-09-30] MEDS: NIFEdipine ER 30 MG TAB PO ONE (14:42)
[2024-09-30] MEDS: MORPHINE SULFATE INJ 2 MG/ml SYRG IV PRN (16:31)
--- NOTE | 2024-09-30 18:10 | DVH ---
CHEST RADIOGRAPH Indication: Chest pain Technique: Single frontal view of the chest was obtained COMPARISON: XY CHEST PORTABLE on DOS: 08/07/24 FINDINGS: Lines and Tubes: None Lungs: Clear Pleura: No effusion. No pneumothorax. Cardiomediastinal contours: Normal heart size. Moderate-sized hiatal hernia again noted. Bones: Unremarkable IMPRESSION: No acute disease.
[2024-10-01] VITALS (7 sets, daily range): BP systolic 120–135; BP diastolic 42–62; PULSE 80–97; RESP 16–18; TEMP 97.4–98; O2SAT 90–97
[2024-10-01 07:15] LABS: Albumin 3.7 g/dL (3.2-4.8); Alkaline Phosphatase 110 U/L (46-116); Anion Gap 6 (5-15); BUN/Creatinine Ratio 24.7 (10.0-20.0); Bilirubin, Total 0.4 mg/dL (0.2-1.0); Blood Urea Nitrogen 19 mg/dL (9-23); Calcium 9.6 mg/dL (8.7-10.4); Carbon Dioxide 23 mmol/L (20-31); Glucose 105 mg/dL (74-106); Potassium 3.8 mmol/L (3.5-5.1); Sodium 137 mmol/L (136-145); Total Protein 7.1 g/dL (5.7-8.2)
[2024-10-01 07:16] LABS: Alanine Aminotransferase < 9 U/L (7-40); Aspartate Aminotransferase 12 U/L (13-40); Chloride 108 mmol/L (98-107)
[2024-10-01 07:18] LABS: Basophils # (auto) 0 10 ^3/uL (0-0.2); Basophils % (auto) 0.8 % (0.0-2.0); Eosinophils # (auto) 0.7 10 ^3/uL (0-0.8); Eosinophils % (auto) 11.7 % (0.0-7.0); Hematocrit 33.3 % (36.0-46.0); Hemoglobin 10.6 g/dL (12.2-16.2); Lymphocytes # (auto) 1.1 10 ^3/uL (0.4-5.4); Lymphocytes % (auto) 18.9 % (10.0-50.0); Mean Corpuscular Hemoglobin 27.3 pg (28.0-32.0); Mean Corpuscular Hgb Conc. 31.9 g/dL (32.0-36.0); Mean Corpuscular Volume 85.6 fL (80.0-100.0); Monocytes # (auto) 0.4 10 ^3/uL (0-1.3); Monocytes % (auto) 6.2 % (0.0-12.0); Neutrophils # (auto) 3.7 10 ^3/uL (1.6-8.6); Neutrophils % (auto) 62.4 % (37.0-80.0); Platelet Count (auto) 285 10^3/uL (140-450); Red Cell Distribution Width 24.5 % (11.8-14.3)
--- NOTE | 2024-10-01 08:41 | DVHSR ---
APPROVED REPORT EXAM: Two-dimensional and M-mode echocardiogram with Doppler and color Doppler. Blood Pressure: 201/80 mmHg INDICATION Chest Pain RISK FACTORS Height: 5', Weight: 149 DIMENSIONS LVDd4.9 (3.8-5.7cm)LA (2D)4.7 (1.9-4.0cm)Aortic Root2.8 (2.0-3.7cm) LVDs3.3 (2.5-4.0cm)LA (MM) (1.9-4.0cm)Aortic Cusp Exc1.2 (1.5-2.0cm) EF (%) 60.0 (55-70%)Rt. Atrium3.8 (1.9-4.0cm)Asc. Aorta cm IVSd0.9 (0.7-1.1cm)RV (D) (1.8-2.4cm) PWd1.0 (0.7-1.1cm) Mitral Valve MitralMitral Stenosis E wave1.00m/sMV Mean GR.mmHg A wave1.30m/sMV Peak GR.mmHg E/A ratio0.82D MVAcm2 Aortic Valve Aortic ValveAortic Stenosis V10.80m/Evangelista Mean GR.15mmHg V22.50m/Evangelista Peak GR.27mmHg Pulmonic Valve V21.00m/s Tricuspid Valve TR Velocity2.50m/s [id number] Conclusion lvef 65% mild mMR mild left atrium enlarged
--- NOTE | 2024-10-01 10:38 | DVHPN2 ---
MARCELLUS MANCILLA [facility] 10/01/24 1038: Consult Progress Note Date Seen: Oct 01, 2024 Subjective Review of Systems: CVS:Normal, RESPIRATORY:Normal, NEURO:Normal Other Systems: Denies any further chest pain, BP better controlled Objective vital signs Vital Sign Date Time Temp Pulse Resp B/P (MAP) Pulse Ox O2 Delivery O2 Flow Rate FiO2 10/01/24 09:39 142/61 10/01/24 09:37 89 18 10/01/24 09:00 97.8 95 97.8 09/30/24 20:00 Room Air* 0 21 Total Intake and Output 09/30/24 09/30/24 10/01/24 15:00 23:00 07:00 Intake Total 300 ml 200 ml Balance 300 ml 200 ml medications Current Medications Medications Dose Ordered Sig/Bebo Route Start Time Stop Time Status Last Admin Dose Admin Gabapentin 300 mg TID PO 09/29/24 22:00 10/01/24 05:14 300 MG Acetaminophen/ Hydrocodone Bitart 1 tab Q4HP PRN PO 09/29/24 15:45 UNV Pantoprazole Sodium 40 mg BID PO 09/29/24 22:00 10/01/24 09:40 40 MG Sucralfate 1 gm QID PO 09/29/24 18:00 10/01/24 05:15 1 GM Ferrous Sulfate 325 mg BID PO 09/29/24 22:00 10/01/24 09:39 325 MG Hydrocortisone 2.5 applic Q6HPRN PRN [place] 09/30/24 07:15 Acetaminophen 650 mg Q6HP PRN PO 09/29/24 15:45 UNV Acetaminophen/ Hydrocodone Bitart 1 tab Q4HP PRN PO 09/29/24 15:45 UNV Ondansetron HCl 4 mg Q4HP PRN IV 09/29/24 15:45 Nitroglycerin 0.4 mg Q5MINP PRN SL 09/29/24 15:45 Morphine Sulfate 2 mg Q30M PRN IV 09/29/24 15:45 Hydralazine HCl 10 mg Q4H PRN IV 09/29/24 15:45 09/30/24 08:41 10 MG Nifedipine 60 mg DAILY PO 10/01/24 10:00 Isosorbide Mononitrate 30 mg DAILY PO 09/30/24 13:45 10/01/24 09:39 30 MG Morphine Sulfate 1 mg Q4HP PRN IV 09/30/24 16:15 10/01/24 09:37 1 MG Examination: LUNGS:Normal, CVS:Normal, NEURO:Normal laboratory and microbiology Laboratory Tests 10/01/24 06:05 Test 10/01/24 06:05 Range/Units Serum Glucose 105 74-106 mg/dL Problem List/Assessment/Plan Problem List/Assessment/Plan Chest pain in the setting of hypertensive emergency Severe coronary artery disease s/p PTCA x 6DES on ASA (11/2023) Peripheral arterial disease s/p RLE REPORTER (03/2024) Recent anemia requiring PRBCs CVA/TIA with left-sided hemiparesis Severe rheumatoid arthritis Psoriasis Nicotine dependence Bedbound status Plan/Recommendation (Dr. Madrid) Transthoracic echocardiogram revealed an LVEF of 65%. The patient with chest pain presented with negative serial troponin levels, an unremarkable 12-lead electrocardiogram, and uncontrolled blood pressure. Denies any further symptoms, BP better controlled. Ischemic workup would not be prudent at this time given her recent anemia with reported GI bleed undergoing a blood transfusion. Reestablish dual-antiplatelet therapy per GI recommendations. The patient is at high-risk for in-stent thrombosis or re-stenosis given recent cardiac interventions. Kindly call if in need to re-consult. Thank you for allowing us to participate in this patient's care. Please call if you have any questions or concerns. This medical document was created using an electronic medical record system with voice recognition software and computerized dictation system. Although this document has been carefully reviewed, there might still be some phonetic and typographical errors. Occasional wrong-word or ``sound-alike substitutions may have occurred due to the inherent limitations of voice recognition software. These areas are purely typographical due to imperfections of the software programs and do not reflect any compromise in the patient's medical care. Please read the chart carefully and recognize, using context, where these substitutions have occurred. Plan discussed with: Patient, Other Date of Service: Oct 01, 2024 Billing Provider: MARCELLUS MANCILLA Cardiology Common Codes: [id number] INP/OBS CARE(Mod) TRACY MADRID MD 10/01/24 4614: Consult Progress Note Problem List/Assessment/Plan Problem List/Assessment/Plan pt takes no meds, smokes continuously, needs asa daily, statin, high risk for cv /morbidity, consider hospice as outpt MARCELLUS MANCILLA Oct 01, 2024 10:38 TRACY MADRID MD Oct 01, 2024 15:54
[2024-10-01] MEDS: NIFEdipine ER 30 MG TAB PO SCH (10:42)
[2024-10-01] MEDS ORDERED: ISOS1TAB28 PO (11:14)
[2024-10-01] MEDS ORDERED: TRAM-626 PO ×2 (11:14→19:39)
[2024-10-01] MEDS ORDERED: METO25TA36 PO (11:14)
[2024-10-01] MEDS ORDERED: HYD25TP TOP (11:14)
--- NOTE | 2024-10-01 11:21 | DVHDS2 ---
Discharge Summary Date of Admission Sep 29, 2024 at 15:43 Date of Discharge: Oct 01, 2024 Admitting Diagnosis Chest pain, rule out ACS Labs/Diagnostic Data: Laboratory Results Test 10/01/24 06:05 09/30/24 04:59 09/29/24 23:10 09/29/24 15:22 White Blood Count 6.0 10^3/uL (4.4-10.8) Red Blood Count 3.90 10^6/uL (4.0-5.20) Hemoglobin 10.6 g/dL (12.2-16.2) Hematocrit 33.3 % (36.0-46.0) Mean Corpuscular Volume 85.6 fL (80.0-100.0) Mean Corpuscular Hemoglobin 27.3 pg (28.0-32.0) Mean Corpuscular Hemoglobin Concent 31.9 g/dL (32.0-36.0) Red Cell Distribution Width 24.5 % (11.8-14.3) Platelet Count 285 10^3/uL (140-450) Mean Platelet Volume 9.0 fL (6.9-10.8) Neutrophils (%) (Auto) 62.4 % (37.0-80.0) Lymphocytes (%) (Auto) 18.9 % (10.0-50.0) Monocytes (%) (Auto) 6.2 % (0.0-12.0) Eosinophils (%) (Auto) 11.7 % (0.0-7.0) Basophils (%) (Auto) 0.8 % (0.0-2.0) Neutrophils # (Auto) 3.7 10 ^3/uL (1.6-8.6) Lymphocytes # (Auto) 1.1 10 ^3/uL (0.4-5.4) Monocytes # (Auto) 0.4 10 ^3/uL (0-1.3) Eosinophils # (Auto) 0.7 10 ^3/uL (0-0.8) Basophils # (Auto) 0 10 ^3/uL (0-0.2) Nucleated Red Blood Cells 0.0 % Sodium Level 137 mmol/L (136-145) Potassium Level 3.8 mmol/L (3.5-5.1) Chloride Level 108 mmol/L (98-107) Carbon Dioxide Level 23 mmol/L (20-31) Anion Gap 6 (5-15) Blood Urea Nitrogen 19 mg/dL (9-23) Creatinine 0.77 mg/dL (0.550-1.02) Glomerular Filtration Rate Calc 83 mL/min (>90) BUN/Creatinine Ratio 24.7 (10.0-20.0) Serum Glucose 105 mg/dL (74-106) Calcium Level 9.6 mg/dL (8.7-10.4) Total Bilirubin 0.4 mg/dL (0.2-1.0) Aspartate Amino Transferase (AST) 12 U/L (13-40) Alanine Aminotransferase (ALT) < 9 U/L (7-40) Alkaline Phosphatase 110 U/L (46-116) Total Protein 7.1 g/dL (5.7-8.2) Albumin 3.7 g/dL (3.2-4.8) Differential Total Cells Counted 100.0 (100) Neutrophils % (Manual) 57 (37.0-80.0) Band Neutrophils % (Manual) 0 Lymphocytes % (Manual) 20 (10.0-50.0) Monocytes % (Manual) 4 (0-12) Eosinophils % (Manual) 19 (0-7) Basophils % (Manual) 0 (0.0-2.0) Metamyelocytes % (manual) 0 Myelocytes % (Manual) 0 Promyelocytes % (Manual) 0 Blast Cells % (Manual) 0 Reactive Lymphocytes 0 Platelet Estimate Adequate Anisocytosis (manual) Slight Urine Color Light-yellow (Yellow) Urine Clarity Turbid (Clear) Urine pH 5.5 (5.0-9.0) Urine Specific [place] 1.018 (1.001-1.035) Urine Protein Negative (Negative) Urine Ketones Negative (Negative) Urine Blood Negative /uL (Negative) Urine Nitrite Negative (Negative) Urine Bilirubin Negative (Negative) Urine Urobilinogen Normal mg/dL (Negative) Urine Leukocyte Esterase Negative /uL (Negative) Urine RBC <1 /hpf (0 - 4) Urine Microscopic WBC 1 /HPF (0-5) Urine Squamous Epithelial Cells Few /hpf (<5) Urine Bacteria None seen /hpf (None Seen) Urine Mucus Few (None Seen) Urine Yeast (Budding) Occasional /hpf (None Urine Glucose Normal mg/dL (Normal) Troponin I High Sensitivity 15 ng/L (</=34) Other Laboratory Tests 10/01/24 06:05 Brief Hx & Hospital Course: History of Present Illness 69F BIBA w/ prior Hx of MO, TIA, Anemia, HTN, and Stents placed in November which all may be associated to the c/c of MO. Pt reports on the CP beginning yesterday and was given Nitro en rout to the ED by EMS. PMHx of Arthritis. SHx of Appendectomy, BTL, , Hernia Repair and Hysterectomy. Denies chills, fever, N/V/D, SOB, or no other associated symptoms, modifiers, recent injuries or sick contacts at this time. Course of hospitalization: Patient was seen by Cardiology. Troponins have been negative x3. EKG negative for any acute ST changes. Patient was noted to be severely hypertensive on admission, with the patient was blood pressure improving after being placed on Procardia as well as Imdur. Chest pain has resolved. Patient was now complaining of bilateral lower extremity pain. Should be noted that the patient has a significant history of being bed-bound secondary to severe contractures of her lower extremities as well as the patient continuously scratching both legs due to psoriasis. Patient will be discharged home now that her blood pressure is improved. Apparently, the patient was taken off antiplatelet therapy secondary to GI bleeding. At this time cardiology wishes for the patient to be cleared by GI to restart antiplatelet therapy despite the patient having previous stents placed. 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 She reports that she was out of medication. Patient will be prescribed Toprol-XL 25 mg p.o. daily as well as Imdur 30 mg p.o. daily. She was agreeable with discharge plan. All questions answered. Physical examination General: Alert and Oriented x3. No acute distress. Well-nourished. Eyes: EOMI. Anicteric. HENT: Moist mucous membranes. Lungs: Clear to auscultation bilaterally. No accessory muscle use. Cardiovascular: Regular rate and rhythm. No murmur. No JVD. Abdomen: Soft, non-tender and non-distended. No palpable masses. Extremities: No edema. Non-tender. Skin: No rashes or lesions. Warm. Neurologic: No focal neurological deficits. CN II-XII grossly intact, but not individually tested. Psychiatric: Cooperative. Appropriate mood and affect. Total time spent with patient discussing and formulating plan of care: 35 minutes. This medical document was created using an electronic medical record system with [employer] dictation system. Although this document has been carefully reviewed, there may still be some phonetic and typographical errors. These areas are purely typographical due to imperfections of the software programs, and do not reflect any compromise in the patient's medical care. Consults/Reason for consult Cardiology: Chest pain Condition at Discharge: Poor Final Diagnosis/Problems List Chest pain secondary to hypertensive crisis Secondary diagnosis: -chest pain, rule out ACS -hypertensive crisis -history of CAD with multiple stent placement -probable peptic ulcer disease -hiatal hernia -nicotine dependence -ruled out GI bleed Discharge Disposition: Home Discharge Instruct/Medications Diet: Cardiac 2g Na,low cholest Activity: No Restrictions, As Tolerated Follow Up/Referral: Follow up with PCP in 1-2 weeks Medications: Toprol-XL 25 mg p.o. daily Imdur 30 mg p.o. daily Hydrocortisone cream, apply b.i.d.. 36 Discharge Statement: "Patient was advised to return to the ER or call 911 if any headaches, dizziness, shortness of breath, chest pain, abdominal pain, bleeding, fevers, or worsening of medical condition. Patient was counseled about treatment plan, medications, possible side effects, patientverbalized understanding. All questions were answered to the best of my ability. This discharge took greater then 30 minutes in planning, reviewing documentation, counseling the patient, and discussing with other team members." ASSESSMENT ASSESSMENT Assessment Chest pain secondary to hypertensive crisis Date of Service: Oct 01, 2024 Billing Provider: RAYSHAWN OWENS NP Common Visit Codes: [id number]/[id number] DISCH DAY >30min RAYSHAWN OWENS NP Oct 01, 2024 11:21
[2024-10-01] MEDS: diphenhdrAMINE HCL 25 MG CAP PO PRN (11:29)
--- NOTE | 2024-10-02 09:27 | ECG ---
[facility] Test Date: 2024-09-29 Test Time: 11:22:03 Pat Name: SELMA COFFEY Department: ED Room: 0272T Gender: F Manager Cash: JUAN MANUEL : 1955 Requested By: MARLENE GOMEZ Order Number: [id number] Reading MD: Measurements Intervals Todd Rate: 87 P: 52 AL: 119 QRS: 65 QRSD: 90 T: 68 QT: 373 QTc: 449 Interpretive Statements Sinus rhythm Atrial premature complex Borderline short AL interval Probable left atrial enlargement Please click the below link to view image of tracing.
== END 2024-10-01 20:49 | disposition home or self-care (01) | DRG 305 ==
LOC: EDUNIT# 11:18 → ER 11:18 → EDBD 11:18 → OVERFLOW 15:43 → TELE-WESTW 22:24
PROVIDERS: ADMIT Internal Medicine; ATTEND Internal Medicine
DX: I16.9 Hypertensive crisis, unspecified (principal); I24.9 Acute ischemic heart disease, unspecified; K44.9 Diaphragmatic hernia without obstruction or gangrene; I10 Essential (primary) hypertension; K27.9 Peptic ulcer, site unspecified, unspecified as acute or chronic, without hemorrhage or perforation; F17.210 Nicotine dependence, cigarettes, uncomplicated; M06.9 Rheumatoid arthritis, unspecified; L40.9 Psoriasis, unspecified; I25.10 Atherosclerotic heart disease of native coronary artery without angina pectoris; I73.9 Peripheral vascular disease, unspecified; D64.9 Anemia, unspecified; Z88.6 Allergy status to analgesic agent; Z88.2 Allergy status to sulfonamides; Z88.8 Allergy status to other drugs, medicaments and biological substances; Z79.899 Other long term (current) drug therapy; Z79.891 Long term (current) use of opiate analgesic; Z79.1 Long term (current) use of non-steroidal anti-inflammatories (NSAID); Z90.49 Acquired absence of other specified parts of digestive tract; I25.2 Old myocardial infarction; Z90.710 Acquired absence of both cervix and uterus; Z80.3 Family history of malignant neoplasm of breast; Z80.0 Family history of malignant neoplasm of digestive organs; Z83.3 Family history of diabetes mellitus; Z82.49 Family history of ischemic heart disease and other diseases of the circulatory system; Z86.0100 Personal history of colon polyps, unspecified; Z82.5 Family history of asthma and other chronic lower respiratory diseases; Z74.01 Bed confinement status; Z95.5 Presence of coronary angioplasty implant and graft; Z83.1 Family history of other infectious and parasitic diseases
CPT/HCPCS: 36415; 71045; 80048; 80053; 81001; 84484; 85007; 85025; 85027; 93005; 93306; 99291; G0378

== ENCOUNTER 2024-11-13 21:42 | Emergency (ER) | payer MEDICARE, MEDICAID ==
[~2024-11-13] VITALS: Ht 152.4 cm; Wt 50.0 kg
[~2024-11-13 21:42] MED LIST changes: +HYD25TP TOP; +ISOS1TAB28 PO; +METO25TA36 PO
[2024-11-13 22:54] VITALS: BP 146/71; PULSE 82; RESP 16; TEMP 98; O2SAT 98
--- NOTE | 2024-11-13 23:03 | ED.PDOC ---
Musculoskeletal HPI Comments 69 year old female presents to ER with complaints of left leg pain x 2 months. Patient states she's been experiencing pain localized to left thigh x "2 months". Denies any trauma/falls and rates her current pain a 8/10 localized to region of left thigh without radiation. Denies taking any medication for her pain. Zarina present to ER in wheelchair and notes she is wheelchair bound at home due to hx of "fibromyalgia". Denies fever, body aches, chills, hip pain, shortness of breath, chest pain, fatigue or any further symptoms/complaints Chief Complaint: Lower Extremity Time Seen by MD: 22:03 Primary Care Provider: UNKNOWN Reviewed Notes: Nurses Notes, Medications, Allergies Allergies: Coded Allergies: Acetaminophen (Verified Allergy, Severe, "body turns red" "It becomes hard to breath", 08/04/24) "body turns red" "It becomes hard to breath" Aspirin (Verified Allergy, Severe, "body turns red" "It becomes hard to breath", 08/04/24) "body turns red" "It becomes hard to breath" Nicotine (Verified Allergy, Severe, 09/30/24) "hives and difficulty breathing" Sulfa Antibiotics (Verified Allergy, Unknown, 08/10/18) Home Meds Active Scripts Tramadol Hcl (Tramadol Hcl) 50 Mg Tab, 50 MG PO Q6HPRN, #10 TAB 0 Refills Prov:KAPIL MICHELLE 11/13/24 Tramadol HCl (Tramadol HCl) 50 Mg Tab, 50 MG PO BID for 7 Days, #14 TAB Prov:RAYSHAWN OWENS NAIL SETTER 10/01/24 Hydrocortone (Hydrocortisone 2.5%) 1 Applic Ap, 1 APPLIC TOP BIDP, #30 GRAMS Prov:RAYSHAWN OWENS NAIL SETTER 10/01/24 Metoprolol Succinate (Toprol Xl) 25 Mg Tab, 1 TAB PO DAILY, #30 TAB 5 Refills Prov:RAYSHAWN OWENS NAIL SETTER 10/01/24 Isosorbide Mononitrate (Isosorbide Mononitrate Er) 30 Mg Tab, 1 TAB PO DAILY, #30 TAB 5 Refills Prov:RAYSHAWN OWENS NAIL SETTER 10/01/24 Tramadol Hcl (Tramadol Hcl) 50 Mg Tab, 50 MG PO Q8HP PRN, #20 TAB Prov:GET AGUILAR PAC 09/22/24 Tramadol HCl (Tramadol HCl) 50 Mg Tab, 50 MG PO QID PRN, #30 TAB Prov:DAVID CORREA MD 08/11/24 Gabapentin (Gabapentin) 300 Mg Cap, 1 CAP PO TID, #90 CAP 5 Refills Prov:DAVID CORREA MD 08/11/24 Ferrous Sulfate (Iron) 325 Mg Tab, 325 MG PO BID, #180 TAB Prov:DAVID CORREA MD 08/11/24 Sucralfate (CARAFATE) 1 Gm Tab, 1 GM PO QID, #120 TAB Prov:DAVID CORREA MD 08/11/24 Pantoprazole Sodium Sesquihydr (Pantoprazole Sodium) 40 Mg Tab, 40 MG PO BID, #60 TAB Prov:DAVID CORREA MD 08/11/24 Hydrocortisone (Rectal) (Procto-Med Hc) 2.5 % Cre, 2.5 % UT Q6HPRN PRN, #28 GRAMS 5 Refills Prov:SCOTTIE AMAYA MD 05/15/23 Hydrocodone-Acetaminophen (Hydrocodone Bitartrate/AC 5-325 mg) 1 Tab Tab, 1 TAB PO Q4HP PRN, #30 TAB Prov:SCOTTIE AMAYA MD 05/14/23 Amlodipine Besylate (NORVASC TABLET) 5 Mg Tb, 10 MG PO DAILY, #30 Prov:NADIYA REICH MD 02/10/19 Lisinopril (Lisinopril) 20 Mg Tab, 1 TAB PO DAILY, #30 TAB 5 Refills Prov:NADIYA REICH MD 02/10/19 Reported Medications Nitroglycerin (Nitrostat) 0.4 Mg Sub, 0.4 MG SL 02/08/19 Hydrocodone-Acetaminophen ([place] 5/325MG) 1 Tab Tb, 1 TAB PO Q6HR, #60 TAB 02/08/19 Vitamin B12 (Vitamin B-12) 1,000 Mcg/1 Ml Ij, 1 TAB PO DAILY 02/07/19 Information Source: Patient Mode of Arrival: Wheelchair Past Medical History PAST MEDICAL HISTORY: Anemia, Arthritis, HTN, [place], TIA Past Medical History (Other): Fibromyalgia Surgical History: Appendectomy, BTL, , Hernia Repair, Hysterectomy TOOLING MECHANIC History: No Pertinent TOOLING MECHANIC History Family History Family History: Unknown Social History Smoker: Non-Smoker Alcohol: Denies ETOH Use Drugs: Denies Drug Use Lives In: Home Constitutional: denies: chills, diaphoresis, fatigue, fever, malaise, sweats, weakness, others EENTM: denies: blurred vision, double vision, ear bleeding, ear discharge, ear drainage, ear pain, ear ringing, eye pain, eye redness, hearing loss, mouth pain, mouth swelling, nasal discharge, nose bleeding, nose congestion, nose pain, photophobia, tearing, throat pain, throat swelling, voice changes, others Respiratory: denies: cough, hemoptysis, orthopnea, SOB at rest, shortness of breath, SOB with excertion, stridor, wheezing, others Cardiovascular: denies: chest pain, dizzy spells, diaphoresis, Dyspnea on exertion, edema, irregular heart beat, left arm pain, lightheadedness, palpitations, PND, syncope, others Gastrointestinal: denies: abdomen distended, abdominal pain, blood streaked bowels, constipated, diarrhea, dysphagia, difficulty swallowing, hematemesis, melena, nausea, poor appetite, poor fluid intake, rectal bleeding, rectal pain, vomiting, others Genitourinary: denies: abnormal vagina bleeding, burning, dyspareunia, dysuria, flank pain, frequency, hematuria, incontinence, pain, , vagina discharge, urgency, others Neurological: denies: dizziness, fainting, headache, left sided numbness, left sided weakness, numbness, paresthesia, pre-existing deficit, right sided numbness, right sided weakness, seizure, speech problems, tingling, tremors, weakness, others Musculoskeletal: reports: others (As stated in HPI) Integumetry: denies: bruises, change in color, change in hair/nails, dryness, laceration, lesions, lumps, rash, wounds, others Allergic/Immunocompromised: denies: Difficulty Healing, Frequent Infections, Hives, Itching, others Hematologic/Lymphatic: denies: anemia, blood clots, easy bleeding, easy bruising, swollen glands, others Endocrine: denies: excessive hunger, excessive sweating, excessive thirst, excessive urination, flushing, intolerance to cold, intolerance to heat, unexplained weight gain, unexplained weight loss, others Psychiatric: denies: anxiety, bipolar disorder, depression, hopeless, panic disorder, schizophrenia, sleepless, suicidal, others Physical Exam General Appearance: No Apparent Distress HEENT: PERRL/EOMI Neck: Full Range of Motion, Non-Tender, Normal Respiratory: Chest Non-Tender, Lungs Clear, No Accessory Muscle Use, No Respiratory Distress, Normal Breath Sounds Cardiovascular: No Murmur, No Gallop, Regular Rate/Rhythm Breast Exam: Deferred Gastrointestinal: NOT DONE Genitalia: Deferred Pelvic: Deferred Rectal: Deferred Extremities: No calf tenderness, Normal capillary refill Musculoskeletal : Extremity Location: Leg (TTP to left thigh noted. No skin changes noted. Pulses intact) Neurologic: Alert, preschool assistant II-XII nml as Tested, No Motor Deficits, Normal Affect, Normal Mood, No Sensory Deficits, Other (Patient presents in wheelchair) Cerebellar Function: Normal Reflexes: Normal Skin: Dry, Normal Color, Warm Peripheral Pulses: 2+ femoral (R), 2+ femoral (L), 2+ dorsalis pedis (R), 2+ dorsalis pedis (L), 2+ Radial (R), 2+ Radial (L), 2+ Brachial (R), 2+ Brachial (L) Lymphatic: No Adenopathy Was a procedure done? Was a procedure done?: No Sedation Sedation?: No Differential Diagnosis EXT Differential Diagnosis: Cellulitis, Deep Vein Thrombosis, Fracture, Neurovascular injury X-Ray, Labs, Meds, VS Vital Signs Date Time Temp Pulse Resp B/P (MAP) Pulse Ox O2 Delivery O2 Flow Rate FiO2 11/13/24 22:54 Room Air* 0 21 11/13/24 22:54 98.0 82 16 146/71 (96) 98 98.0 11/13/24 21:46 98.0 82 16 146/71 (96) 98 98.0 Current Medications Medications (Trade) Dose Ordered Sig/Bebo Route Start Time Stop Time Status Last Admin Tramadol HCl (Ultram) 50 mg ONCE ONCE PO 11/13/24 23:15 11/13/24 23:16 DC 11/13/24 23:25 PATIENT: SELMA COFFEY CACCT: [id number]: [id number] : 1955 LOC: ER ROOM / BED: / AGE / SEX: 69 / F ADM STATUS: REG ER SERVICE 51 ORDERING PHYSICIAN: KAPIL MICHELLE PROCEDURE(s): LLDVT - LT Lower DVT REASON: left leg pain ORDER NUMBER(s): [id number], ACCESSION NUMBER(s): [id number] Left lower extremity venous duplex Clinical History: left leg pain Comparison: None Technique: Duplex Doppler evaluation of the deep venous system of the left lower extremity from the common femoral vein to the popliteal vein including color Doppler and spectral/pulsed waveform analysis was performed. Findings: The common femoral vein demonstrates appropriate compressibility and waveform variability. There is compressibility/patency of the great saphenous vein at the proximal thigh. The femoral vein demonstrates appropriate compressibility and waveform variability. The deep femoral vein demonstrates appropriate compressibility and waveform variability. The popliteal vein demonstrates appropriate compressibility and waveform variability. There is normal compressibility at the tibioperoneal trunk. Impression: No evidence of left femoropopliteal venous thrombosis. ATED BY: DOMINGUEZ GUALLPA MD DICTATED DATE/TIME: 11/13/242352 SIGNED BY: DOMINGUEZ GUALLPA MD SIGNED DATE/TIME: 11/13/242352 CC: Tramadol 50 mg p.o. ordered Left DVT ultrasound reviewed Patient neurovascularly intact and had improvement in symptoms prior to discharge Advised to follow up with PCP in 1-2 days Patient verbalized understanding and agreeable with current plan of care Advised to return to ER immediately if symptoms worsen Images Reviewed?: Images reviewed and evaluated by me Time of 1ST Reevaluation: 23:00 Reevaluation 1ST: N/A Patient Education/Counseling: Diagnosis, Treatment, Prognosis, Need For Follow Up Family Education/Counseling: No Family Present Departure 1 Departure Time of Disposition: 23:44 Impression: Primary Impression: Left leg pain Additional Impression: History of fibromyalgia Disposition: HOME / SELF CARE / HOMELESS Condition: Stable e-Prescriptions Tramadol Hcl (Tramadol Hcl) 50 Mg Tab 50 MG PO Q6HPRN, #10 TAB 0 Refills Prov: KAPIL MICHELLE 11/13/24 Discharged With: Other (daughter) Critical Care Note Critical Care Time?: No Stability Stability form required: No Heart Score Heart Score: Heart Score Response (Comments) Value History N/A 0 EKG N/A 0 Age N/A 0 Risk Factors N/A 0 Troponin N/A 0 Total 0 KAPIL MICHELLE November 13, 2024 23:03
[2024-11-13] MEDS: traMADol HCL 50 MG TAB PO ONE (23:25)
[2024-11-13] MEDS ORDERED: TRAM50TA2 PO (23:46)
--- NOTE | 2024-11-13 23:55 | DVH ---
Left lower extremity venous duplex Clinical History: left leg pain Comparison: None Technique: Duplex Doppler evaluation of the deep venous system of the left lower extremity from the common femor al vein to the popliteal vein including color Doppler and spectral/pulsed waveform analysis was perfo rmed. Findings: The common femoral vein demonstrates appropriate compressibility and waveform variability. There is compressibility/patency of the great saphenous vein at the proximal thigh. The femoral vein demonstrates appropriate compressibility and waveform variability. The deep femoral vein demonstrates appropriate compressibility and waveform variability. The popliteal vein demonstrates appropriate compressibility and waveform variability. There is normal compressibility at the tibioperoneal trunk. Impression: No evidence of left femoropopliteal venous thrombosis.
== END 2024-11-13 23:57 | disposition home or self-care (01) ==
LOC: ER 21:43
DX: M79.652 Pain in left thigh (principal); I10 Essential (primary) hypertension; Z86.73 Personal history of transient ischemic attack (TIA), and cerebral infarction without residual deficits; Z90.49 Acquired absence of other specified parts of digestive tract; Z90.710 Acquired absence of both cervix and uterus; Z98.890 Other specified postprocedural states; Z88.8 Allergy status to other drugs, medicaments and biological substances; Z88.2 Allergy status to sulfonamides; Z79.899 Other long term (current) drug therapy
CPT/HCPCS: 93971

== ENCOUNTER 2025-01-28 15:13 | Inpatient (IN) | payer MEDICARE, MEDICAID ==
[~2025-01-28] VITALS: Ht 149.9 cm; Wt 51.7 kg
--- NOTE | 2025-01-28 15:28 | ED.PDOC ---
History of Present Illness HPI Comments 69-year-old female brought by paramedics from home because of chest wall pain which started about an hour ago. She was outside smoking cigarettes when she had the pain. She is wheelchair bound. She does have a history of old CVA hypertension coronary artery disease with stents. Heart rate on arrival was 10 0. Denies any other symptoms. Time Seen by MD: 15:17 Primary Care Provider: UNKNOWN Reviewed Notes: Nurses Notes, Medications, Allergies Allergies: Coded Allergies: Acetaminophen (Verified Allergy, Severe, "body turns red" "It becomes hard to breath", 08/04/24) "body turns red" "It becomes hard to breath" Aspirin (Verified Allergy, Severe, "body turns red" "It becomes hard to breath", 08/04/24) "body turns red" "It becomes hard to breath" Nicotine (Verified Allergy, Severe, 09/30/24) "hives and difficulty breathing" Sulfa Antibiotics (Verified Allergy, Unknown, 08/10/18) Home Meds Active Scripts Tramadol Hcl (Tramadol Hcl) 50 Mg Tab, 50 MG PO Q6HPRN, #10 TAB 0 Refills Prov:KAPIL MICHELLE 11/13/24 Tramadol HCl (Tramadol HCl) 50 Mg Tab, 50 MG PO BID for 7 Days, #14 TAB Prov:RAYSHAWN OWENS ACCOUNT EXECUTIVE [employer] 10/01/24 Hydrocortone (Hydrocortisone 2.5%) 1 Applic Ap, 1 APPLIC TOP BIDP, #30 GRAMS Prov:RAYSHAWN OWENS [employer]OUNT EXEC[employer] 10/01/24 Metoprolol Succinate (Toprol Xl) 25 Mg Tab, 1 TAB PO DAILY, #30 TAB 5 Refills Prov:RAYSHAWN OWENS [employer]OUNT EX[employer] 10/01/24 Isosorbide Mononitrate (Isosorbide Mononitrate Er) 30 Mg Tab, 1 TAB PO DAILY, #30 TAB 5 Refills Prov:RAYSHAWN OWENS [employer]OUNT EXEC[employer] 10/01/24 Tramadol Hcl (Tramadol Hcl) 50 Mg Tab, 50 MG PO Q8HP PRN, #20 TAB Prov:GET AGUILAR PAC 09/22/24 Tramadol HCl (Tramadol HCl) 50 Mg Tab, 50 MG PO QID PRN, #30 TAB Prov:DAVID CORREA MD 08/11/24 Gabapentin (Gabapentin) 300 Mg Cap, 1 CAP PO TID, #90 CAP 5 Refills Prov:DAVID CORREA MD 08/11/24 Ferrous Sulfate (Iron) 325 Mg Tab, 325 MG PO BID, #180 TAB Prov:DAVID CORREA MD 08/11/24 Sucralfate (CARAFATE) 1 Gm Tab, 1 GM PO QID, #120 TAB Prov:DAVID CROREA MD 08/11/24 Pantoprazole Sodium Sesquihydr (Pantoprazole Sodium) 40 Mg Tab, 40 MG PO BID, #60 TAB Prov:DAVID CORREA MD 08/11/24 Hydrocortisone (Rectal) (Procto-Med Hc) 2.5 % Cre, 2.5 % MS Q6HPRN PRN, #28 GRAMS 5 Refills Prov:SCOTTIE AMAYA MD 05/15/23 Hydrocodone-Acetaminophen (Hydrocodone Bitartrate/AC 5-325 mg) 1 Tab Tab, 1 TAB PO Q4HP PRN, #30 TAB Prov:SCOTTIE AMAYA MD 05/14/23 Amlodipine Besylate (NORVASC TABLET) 5 Mg Tb, 10 MG PO DAILY, #30 Prov:NADIYA REICH MD 02/10/19 Lisinopril (Lisinopril) 20 Mg Tab, 1 TAB PO DAILY, #30 TAB 5 Refills Prov:NADIYA REICH MD 02/10/19 Reported Medications Nitroglycerin (Nitrostat) 0.4 Mg Sub, 0.4 MG SL 02/08/19 Hydrocodone-Acetaminophen ([place] 5/325MG) 1 Tab Tb, 1 TAB PO Q6HR, #60 TAB 02/08/19 Vitamin B12 (Vitamin B-12) 1,000 Mcg/1 Ml Ij, 1 TAB PO DAILY 02/07/19 Information Source: Patient, Emergency Med Personnel Mode of Arrival: EMS Severity: Moderate Timing: Minutes Duration: Since onset Past Medical History PAST MEDICAL HISTORY: Anemia, Arthritis, HTN, [place], TIA Surgical History: Appendectomy, BTL, , Hernia Repair, Hysterectomy CHANNEL LIP WETTER History: No Pertinent CHANNEL LIP WETTER History Family History Family History: Unknown Social History Smoker: Non-Smoker Alcohol: Denies ETOH Use Drugs: Denies Drug Use Lives In: Home Constitutional: denies: chills, diaphoresis, fatigue, fever, malaise, sweats, weakness, others EENTM: denies: blurred vision, double vision, ear bleeding, ear discharge, ear drainage, ear pain, ear ringing, eye pain, eye redness, hearing loss, mouth pain, mouth swelling, nasal discharge, nose bleeding, nose congestion, nose pain, photophobia, tearing, throat pain, throat swelling, voice changes, others Respiratory: denies: cough, hemoptysis, orthopnea, SOB at rest, shortness of breath, SOB with excertion, stridor, wheezing, others Cardiovascular: reports: chest pain; denies: dizzy spells, diaphoresis, Dyspnea on exertion, edema, irregular heart beat, left arm pain, lightheadedness, palpitations, PND, syncope, others Gastrointestinal: denies: abdomen distended, abdominal pain, blood streaked bowels, constipated, diarrhea, dysphagia, difficulty swallowing, hematemesis, melena, nausea, poor appetite, poor fluid intake, rectal bleeding, rectal pain, vomiting, others Genitourinary: denies: abnormal vagina bleeding, burning, dyspareunia, dysuria, flank pain, frequency, hematuria, incontinence, pain, , vagina discharge, urgency, others Neurological: denies: dizziness, fainting, headache, left sided numbness, left sided weakness, numbness, paresthesia, pre-existing deficit, right sided numbness, right sided weakness, seizure, speech problems, tingling, tremors, weakness, others Musculoskeletal: denies: back pain, gout, joint pain, joint swelling, muscle pain, muscle stiffness, neck pain, others Integumetry: denies: bruises, change in color, change in hair/nails, dryness, laceration, lesions, lumps, rash, wounds, others Allergic/Immunocompromised: denies: Difficulty Healing, Frequent Infections, Hives, Itching, others Hematologic/Lymphatic: denies: anemia, blood clots, easy bleeding, easy bruising, swollen glands, others Endocrine: denies: excessive hunger, excessive sweating, excessive thirst, excessive urination, flushing, intolerance to cold, intolerance to heat, unexplained weight gain, unexplained weight loss, others Psychiatric: denies: anxiety, bipolar disorder, depression, hopeless, panic disorder, schizophrenia, sleepless, suicidal, others Physical Exam General Appearance: Moderate Distress HEENT: Normal ENT Inspection, Pharynx Normal, TMs Normal Neck: Full Range of Motion, Non-Tender, Normal, Normal Inspection Respiratory: Chest Non-Tender, Lungs Clear, No Accessory Muscle Use, No Respiratory Distress, Normal Breath Sounds Cardiovascular: No Edema, No JVD, No Murmur, No Gallop, Normal Peripheral Pulses, Tachycardia Breast Exam: Deferred Gastrointestinal: No Organomegaly, Non Tender, No Pulsatile Mass, Normal Bowel Sounds, Soft Genitalia: Deferred Pelvic: Deferred Rectal: Deferred Extremities: No calf tenderness Musculoskeletal : Apperance: Normal Neurologic: Alert Cerebellar Function: NOT DONE Reflexes: NOT DONE Skin: Normal Color Peripheral Pulses: 3+ Radial (R), 3+ Radial (L) Lymphatic: No Adenopathy Was a procedure done? Was a procedure done?: No EKG EKG : Pulse Rate (adult): 100 Cardiac Rhythm: ST Differential Dx Considerations may include: Chest pain Electrolyte imbalance X-Ray, Labs, Meds, VS Vital Signs Date Time Temp Pulse Resp B/P (MAP) Pulse Ox O2 Delivery O2 Flow Rate FiO2 01/28/25 15:15 100 Patient alert. Complaining of chest pain. EKG reviewed does not show any acute changes. Vitals stable. Answering questions. Has risk factors for coronary artery disease. Was given aspirin. Was given nitro. Explained to the patient. Continue to monitor. Time of 1ST Reevaluation: 15:26 Reevaluation 1ST: Unchanged Patient Education/Counseling: Diagnosis, Treatment, Prognosis Family Education/Counseling: No Family Present SEPSIS Sepsis Screen Physician Orders Troponin-I Hs (01/28/25 15:17) Complete Blood Count (01/28/25 15:17) Urinalysis (01/28/25 15:17) Basic Metabolic Panel (01/28/25 15:17) Troponin-I Hs (01/28/25 16:17) Troponin-I Hs (01/28/25 18:17) Chest Portable (01/28/25 15:17) Electrocardigram (01/28/25 15:19) Vital Signs Date Time Temp Pulse Resp B/P (MAP) Pulse Ox O2 Delivery O2 Flow Rate FiO2 01/28/25 15:15 100 Departure 1 Departure Time of Disposition: 15:27 Impression: Primary Impression: Chest pain of unknown etiology Additional Impression: HTN (hypertension) Qualified Codes: I10 - Essential (primary) hypertension Disposition: ADMITTED INPATIENT Admit to: Med Surg Condition: Guarded Critical Care Note Critical Care Time?: No Stability Stability form required: No Heart Score Heart Score: Heart Score Response (Comments) Value History Slightly Suspicious 0 EKG Normal 0 Age >65 2 Risk Factors >3 or Hx ASHD 2 Troponin Normal limit 0 Total 4 MARLENE GOMEZ MD Jan 28, 2025 15:28
[2025-01-28 15:51] LABS: Hematocrit 33.9 % (36.0-46.0); Hemoglobin 11.5 g/dL (12.2-16.2); Mean Corpuscular Hemoglobin 29.8 pg (28.0-32.0); Mean Corpuscular Volume 88.0 fL (80.0-100.0); Nucleated Red Blood Cells % 0.0 %
[2025-01-28 15:53] LABS: Potassium 3.6 mmol/L (3.5-5.1); Sodium 142 mmol/L (136-145)
[2025-01-28 15:54] LABS: Anion Gap 7 (5-15); Carbon Dioxide 25 mmol/L (20-31)
[2025-01-28 15:55] LABS: Calcium 8.9 mg/dL (8.7-10.4); Chloride 110 mmol/L (98-107)
[2025-01-28 15:59] LABS: BUN/Creatinine Ratio 26.7 (10.0-20.0)
[2025-01-28 16:04] LABS: Blood Urea Nitrogen 31 mg/dL (9-23); Glucose 124 mg/dL (74-106)
--- NOTE | 2025-01-28 16:48 | DVH ---
CHEST RADIOGRAPH Indication: sob Technique: Single frontal view of the chest was obtained Comparison: XY CHEST PORTABLE on DOS: 09/30/24, XY CHEST PORTABLE on DOS: 08/07/24 FINDINGS: Lines and Tubes: None Lungs: No focal consolidation. Questionable artifact in the left costophrenic angle Pleura: No effusion. No pneumothorax. Cardiomediastinal contours: Unremarkable Bones: No acute osseous abnormality. IMPRESSION: 1. No acute cardiopulmonary disease.
--- NOTE | 2025-01-28 18:09 | ECG ---
[facility] Test Date: 2025-01-28 Test Time: 15:15:01 Pat Name: SELMA COFFEY Department: [facility] ED Patient ID: [facility]-[id number] Room: [address] [place] [address] Gender: F Loss Prevention Representative: REILLY : 1955 Requested By: MARLENE GOMEZ Order Number: [id number] Reading MD: Frederick Das Measurements Intervals [place] Rate: 100 P: 36 DE: 120 QRS: 17 QRSD: 89 T: 81 QT: 358 QTc: 462 Interpretive Statements Sinus tachycardia Multiple ventricular premature complexes Minimal ST depression, lateral leads Electronically Signed On 01-29-2025 18:23:30 PDT by Frederick Das Please click the below link to view image of tracing.
[2025-01-29] MEDS: NITROGLYCERIN 0.4 MG SL TAB SL ONE (00:57)
[2025-01-29] MEDS ORDERED: NITROGLYCERIN 0.4 MG SL TAB SL PRN (04:15)
[2025-01-29] MEDS ORDERED: MORPHINE SULFATE INJ 2 MG/ml SYRG IV PRN (04:15)
[2025-01-29] MEDS: SODIUM CHLORIDE 0.9% 500 ML IV ONE (04:15)
--- NOTE | 2025-01-29 04:22 | DVHHPRES ---
History of Present Illness Resident Creating Document: FREDERICK TAMEZ RESIDENT History of Present Illness Natalia Peterson is a 69-year-old female, with past medical history of fibromyalgia, RA, hypertension and CAD (2 stens in 11/2023). The patient was brought to the ED by EMS from home with chief complaint of 1 day of chest pain, pressure-like, substernal, no radiation, the chest pain started while she was sitting smoking, lasted 25 minutes, no aggravated with movements, improved with rest. Associated with SOB and dizziness. The patient is wheelchair bound and she denies palpitations, nausea, vomit, headache or other symptoms. Initial evaluation showed HR 100x min, EKG: Sinus tachycardia, multiple ventricular premature complexes,mMinimal ST depression, lateral leads. Labs: Troponins 10, 11. Patient will be admitted for further evaluation and management. Cardiovascular: CAD (2 stents 11/2023), HTN Rheumatologic: Fibromyalgia, Rheumatoid arthritis Past Surgical History: None Family History: None Smoke: <1 pack per day ALCOHOL: none Drugs: None Lives: with Family Review of Systems Constitutional: No: Fever, Chills, Sweats, Weakness, Malaise, Other Eyes: No: Pain, Vision change, Conjunctivae inflammation, Eyelid inflammation, Other, Redness ENT: No: Ear pain, Ear discharge, Nose pain, Nose discharge, Nose congestion, Mouth pain, Mouth swelling, Throat pain, Throat swelling, Other Respiratory: No: Cough, Dry, Shortness of breath, SOB with excertion, Wheezing, Hemoptysis, Pleuritic Pain, Sputum, Wheezing, Other Cardiovascular: Chest Pain, Lt Headedness; No: Palpitations, Orthopnea, Paroxysmal Noc. Dyspnea, Edema, Other Gastrointestinal: No: Nausea, Vomiting, Abdominal Pain, Diarrhea, Constipation, Melena, Hematochezia, Other Genitourinary: No Dysuria, No Frequency, No Incontinence, No Hematuria, No Retention, No Other Musculoskeletal: No: other, neck pain, shoulder pain, arm pain, back pain, hand pain, leg pain, foot pain Skin: No: Rash, Lesions, Jaundice, Bruising, Other Neurological: No: Weakness, Numbness, Incoordination, Change in speech, Confusion, Seizures, Other Allergies: Coded Allergies: Acetaminophen (Verified Allergy, Severe, "body turns red" "It becomes hard to breath", 08/04/24) "body turns red" "It becomes hard to breath" Aspirin (Verified Allergy, Severe, "body turns red" "It becomes hard to breath", 08/04/24) "body turns red" "It becomes hard to breath" Nicotine (Verified Allergy, Severe, 09/30/24) "hives and difficulty breathing" Sulfa Antibiotics (Verified Allergy, Unknown, 08/10/18) Medications Current Medications Medications Dose Ordered Sig/Bebo Route Start Time Stop Time Status Last Admin Dose Admin Enoxaparin Sodium 40 mg DAILY SC 01/29/25 10:00 UNV Nitroglycerin 0.4 mg Q5MINP PRN SL 01/29/25 04:15 UNV Morphine Sulfate 2 mg Q30M PRN IV 01/29/25 04:15 UNV Atorvastatin Calcium 80 mg DAILY PO 01/29/25 10:00 UNV Exam Vital Signs Vital Signs Date Time Temp Pulse Resp B/P (MAP) Pulse Ox O2 Delivery O2 Flow Rate FiO2 01/29/25 01:46 97.8 72 14 87/54 (65) 98 97.8 General Appearance: Alert, Oriented X3, Cooperative, No acute distress HEENT: Atraumatic, Mucous membr. moist/pink Respiratory: Clear to auscultation, Normal air movement Cardiovascular: Regular rate, Normal S1, Normal S2, No murmurs Abdominal: Normal bowel sounds, Soft, No tenderness, No hepatospenomegaly, No masses Extremities: No clubbing, No cyanosis, No edema, Normal pulses, No tenderness/swelling Skin: No rashes, No breakdown, No significant lesion Neuro: Normal gait, Normal speech, Strength at 5/5 X4 ext, Normal tone, Sensation intact Psych/Mental Status: Mental status NL, Mood NL Labs/Xrays Labs Test 01/28/25 16:31 01/28/25 15:32 Range/Units Troponin I High Sensitivity 11 </=34 ng/L White Blood Count 5.1 4.4-10.8 10^3/uL Red Blood Count 3.85 L 4.0-5.20 10^6/uL Hemoglobin 11.5 L 12.2-16.2 g/dL Hematocrit 33.9 L 36.0-46.0 % Mean Corpuscular Volume 88.0 80.0-100.0 fL Mean Corpuscular Hemoglobin 29.8 28.0-32.0 pg Mean Corpuscular Hemoglobin Concent 33.9 32.0-36.0 g/dL Red Cell Distribution Width 17.8 H 11.8-14.3 % Platelet Count 276 140-450 10^3/uL Mean Platelet Volume 9.3 6.9-10.8 fL Neutrophils (%) (Auto) 63.6 37.0-80.0 % Lymphocytes (%) (Auto) 19.1 10.0-50.0 % Monocytes (%) (Auto) 7.8 0.0-12.0 % Eosinophils (%) (Auto) 8.6 H 0.0-7.0 % Basophils (%) (Auto) 0.9 0.0-2.0 % Neutrophils # (Auto) 3.2 1.6-8.6 10 ^3/uL Lymphocytes # (Auto) 1.0 0.4-5.4 10 ^3/uL Monocytes # (Auto) 0.4 0-1.3 10 ^3/uL Eosinophils # (Auto) 0.4 0-0.8 10 ^3/uL Basophils # (Auto) 0 0-0.2 10 ^3/uL Nucleated Red Blood Cells 0.0 % Sodium Level 142 136-145 mmol/L Potassium Level 3.6 3.5-5.1 mmol/L Chloride Level 110 H 98-107 mmol/L Carbon Dioxide Level 25 20-31 mmol/L Anion Gap 7 5-15 Blood Urea Nitrogen 31 H 9-23 mg/dL Creatinine 1.16 H 0.550-1.02 mg/dL Glomerular Filtration Rate Calc 51 >90 mL/min BUN/Creatinine Ratio 26.7 H 10.0-20.0 Serum Glucose 124 H 74-106 mg/dL Calcium Level 8.9 8.7-10.4 mg/dL SEPSIS Sepsis Screen Date sepsis recognized/suspect: Jan 28, 2025 Time Sepsis recognized/suspect: 151 Recent Procedure: No On Antibiotic Therapy: No Respiratory Rate >20: No Heart Rate >90: Yes Temp<36 C (96.8 F) or >38.3 C: No SBP <90 or MAP <65 mmHG: No New Acute Mental Status Change: No Is the patient on CPAP, BIPAP,: No Physician Orders Admit (01/29/25 04:08) Code Status (01/29/25 04:08) Vital Signs .PER UNIT PROTOCOL (01/29/25 04:08) Review Orders With Adm.Md (01/29/25 04:08) Bedside Commode (01/29/25 04:08) Notify Md Of Changes From Base (01/29/25 04:08) Advance Directive (01/29/25 04:08) Basic Metabolic Panel (01/29/25 04:08) Urinalysis (01/29/25 04:08) Complete Blood Count (01/29/25 04:08) Patient Condition (01/29/25 04:08) Allergies (01/29/25 04:08) Drug Screen (01/29/25 04:08) Enoxaparin Sodium (Lovenox) (01/29/25 10:00) Nitroglycerin Sublingual (Ntrostat Subli (01/29/25 04:15) Morphine Sulfate Injection (01/29/25 04:15) Stat Ekg For Chest Pain (01/29/25 04:08) Notify Md Of Changes From Base (01/29/25 04:08) Paper Products Inspector For 24 Hours (01/29/25 04:08) Rhythm Strips Once Every Shift (01/29/25 04:08) B-Type Natriuretic Peptide (01/29/25 04:08) Atorvastatin (Lipitor) (01/29/25 10:00) Aspirin Tablet (01/29/25 04:15) NS (01/29/25 04:15) Cardiac Diet-2gna,Lofat,Lochol (01/29/25 Breakfast) Vital Signs Date Time Temp Pulse Resp B/P (MAP) Pulse Ox O2 Delivery O2 Flow Rate FiO2 01/29/25 01:46 97.8 72 14 87/54 (65) 98 97.8 01/29/25 00:57 151/97 Assessment/Plan Assessment/Plan #Acute Chest Pain, R/O ACS EKG Troponins BNP Aspirin 81mg po qd Atorvastatin 80mg po qd Consider ECHO and Cardiac evaluation # Essential Hypertension lisinopril 10 mg po qd (medication reconciliation) #Fibromyalgia Medication reconciliation #Rheumatoid arthritis medication reconciliation. #Smoking Counselling about quitting Cardiac diet DVT prophylaxis-Levonox PUD prophylaxis Protonic. Goals of care discussed with the patient > 35 min. Discussed plan of care with Dr. Kothari Code status: Full code PCP: No established yet. Discharge clinic. Plan discussed with: Patient, the patient agrees with the admission plan. Plan discussed with: Patient My Orders Orders - FREDERICK TAMEZ Procedure Category Date Status Time Admit ADMIT 01/29/25 Transmitted 04:08 Code Status CODE 01/29/25 Transmitted 04:08 Vital Signs [facility] 01/29/25 In Process 04:08 Review Orders With [facility] 01/29/25 In Process Adm. 04:08 Bedside Commode [facility] 01/29/25 In Process 04:08 Notify Md Of Changes [facility] 01/29/25 In Process From Base 04:08 Advance Directive [facility] 01/29/25 In Process 04:08 Basic Metabolic Panel LAB 01/29/25 Transmitted 04:08 Urinalysis LAB 01/29/25 Transmitted 04:08 Complete Blood Count LAB 01/29/25 Transmitted 04:08 Patient Condition ORDERS 01/29/25 Transmitted 04:08 Allergies [facility] 01/29/25 In Process 04:08 Drug Screen LAB 01/29/25 Transmitted 04:[address] [facility] 01/29/25 Logged (Lovenox) 10:[address] [facility] 01/29/25 Transmitted Sublingual (Ntrostat 04:15 Morphine Sulfate PHA 01/29/25 Transmitted Injection 04:15 Stat Ekg For Chest [facility] 01/29/25 In Process Pain 04:08 Notify Md Of Changes [facility] 01/29/25 In Process From Base 04:08 Paper Products Inspector For [facility] 01/29/25 In Process 24 Hours 04:08 Rhythm Strips Once [facility] 01/29/25 In Process Every Shift 04:08 B-Type Natriuretic LAB 01/29/25 Logged Peptide 04:08 Atorvastatin (Lipitor) PHA 01/29/25 Transmitted 10:00 Aspirin Tablet PHA 01/29/25 Transmitted 04:15 NS PHA 01/29/25 Transmitted 04:15 Cardiac DIET 01/29/25 Transmitted Diet-2gna,Lofat,Lochol Breakfast Date of Service: Jan 29, 2025 Billing Provider: BECKY KOTHARI MD Common Visit Codes: [id number] INP/OBS CARE (HIGH) Secondary Visit Codes: [id number] CHNG SMOKING 3-10m, [id number] CARE PLAN 30 MINUTES FREDERICK TAMEZ Jan 29, 2025 04:22
[2025-01-29 04:49] LABS: Hematocrit 34.9 % (36.0-46.0); Hemoglobin 11.8 g/dL (12.2-16.2); Mean Corpuscular Hemoglobin 29.9 pg (28.0-32.0); Mean Corpuscular Volume 88.6 fL (80.0-100.0); Nucleated Red Blood Cells % 0.1 %
[2025-01-29 04:54] LABS: Potassium 3.6 mmol/L (3.5-5.1); Sodium 140 mmol/L (136-145)
[2025-01-29 04:55] LABS: Chloride 109 mmol/L (98-107)
[2025-01-29 04:56] LABS: Anion Gap 8 (5-15); Calcium 9.2 mg/dL (8.7-10.4); Carbon Dioxide 23 mmol/L (20-31)
[2025-01-29 05:01] LABS: BUN/Creatinine Ratio 33.7 (10.0-20.0); Blood Urea Nitrogen 28 mg/dL (9-23); Glucose 100 mg/dL (74-106)
--- NOTE | 2025-01-29 08:41 | DVHPNRES ---
Progress Note Date Seen: Jan 29, 2025 Resident Creating Document: MARY HAGAN RESIDENT Medical Necessity Reason Pt with a Central, PICC or Fol: Yes The following are medically ne: Green Catheter Subjective Review of Systems Mario Fisher is a 69-year-old female with past medical history of CAD, RA, fibromyalgia, hypertension (2 stens in 11/2023), presented to the ER with chief complaint of 1 day of chest pain, pressure-like, substernal, no radiation, the chest pain started while she was sitting smoking. She reported that the pain lasted for 20 minutes and improved with NTG, given by EMS. Associated with SOB and dizziness. The patient is wheelchair bound for the last 15 years after a fall. She denies palpitations, nausea, vomit, headache or other symptoms. PMHx: CAD, RA, fibromyalgia, HFpEF, hypertension PSHx: Hysterectomy, 3 section, 2 stent placement Social history: Smoking since age of 9, 2-3 packs per week, no use of alcohol, recreational drugs. Lives in house with niece, daughter Home medication: lisinopril, amlodipine, atorvastatin, duloxetine, oxycodone, gabapentin, naloxone, NTG, tramadol, isosorbide mononitrate, metoprolol succinate, pantoprazole, sucralfate, iron ROS: Constitutional: Denies weight loss, fever and chills. HEENT: Denies changes in vision and hearing. Respiratory: Denies shortness of breath and cough Cardiovascular: Denies chest discomfort or palpitations GI: Denies abdominal pain, nausea, vomiting and diarrhea. : Denies dysuria and urinary frequency. Musculoskeletal: Denies myalgias and joint pain Skin: Denies rash and pruritus. Neurological: Denies dizziness, headache, vision or hearing problems She was examined at bedside today. Vitals show low blood pressure. She does not have any residual chest pain, complains of excruciating pain in bilateral lower limbs. Also complain of pain in lower back. We will continue monitoring and managing Objective vital signs Vital Sign Date Time Temp Pulse Resp B/P (MAP) Pulse Ox O2 Delivery O2 Flow Rate FiO2 01/29/25 01:46 97.8 72 14 87/54 (65) 98 97.8 medications Current Medications Medications Dose Ordered Sig/Bebo Route Start Time Stop Time Status Last Admin Dose Admin Enoxaparin Sodium 40 mg DAILY SC 01/29/25 10:00 Nitroglycerin 0.4 mg Q5MINP PRN SL 01/29/25 04:15 Morphine Sulfate 2 mg Q30M PRN IV 01/29/25 04:15 Atorvastatin Calcium 80 mg DAILY PO 01/29/25 10:00 Pantoprazole Sodium 40 mg DAILY@0600 PO 01/30/25 06:00 Examination General: Patient alert and oriented in person, place and time. Patient following commands. HEENT: Normocephalic, atraumatic, moist mucous membranes Respiratory/pulmonary: Clear lungs bilaterally, vesicular murmurs present in almost all lung kaplan, no associated crackles or wheezes. Cardiovascular: Normal heart sounds S1 and S2 with no associated murmurs Abdomen: Abdomen nondistended, there is no pain to palpation in any of the abdominal quadrants, no palpable masses. Extremities: Scaly, erythematous plaques on bilateral lower extremities [id number]. [place] neck deformity in multiple fingers of both hands. Peripheral Pulses: 3+ Radial (R). 3+ Radial (L). 3+ Dorsalis pedis (R). 3+ Dorsalis pedis(L) Skin: No rashes or pruritus, there is no sacral edema present at this time. Neurological: Intact cranial nerves with no focal neurologic deficits laboratory and microbiology Laboratory Tests 01/29/25 04:35 Test 01/29/25 04:35 Range/Units Serum Glucose 100 74-106 mg/dL Problem List/Assessment/Plan Problem List/Assessment/Plan Acute Chest Pain, R/O ACS Monitor for life-threatening arrhythmias EKG: Multiple ventricular premature complexes, Minimal ST depression, lateral leads Troponins WNL BNP WNL CXR no acute abnormality Started on telemetry Managed with NTG, Aspirin, Atorvastatin 80mg po qd Presumed sepsis due to Complicated UTI, ruled out History of recurrent UTI Vitals show hypotension, tachycardia Labs showed leukopenia Blood culture, urine culture ordered IV fluids given Discontinued IV vancomycin and cefepime Normocytic normochromic anemia, unspecified Essential Hypertension Hypotensive, Continue to monitor and manage REY due to VMN Elevated BUN, creatinine, BUN/Cr Fibromyalgia Psoriasis Rheumatoid arthritis History of depression Smoking Counselling about quitting DIET: Cardiac diet DVT PROPHYLAXIS: Lovenox CODE STATUS: Goals of care discussed with patient at bedside for more than 35 minutes. Full code DISPOSITION: Med/surge Patient's status and plan discussed with the patient. Case discussed with Dr. Child. Plan discussed with: Patient Date of Service: Jan 29, 2025 Billing Provider: JOSHUA CHILD MD Common Visit Codes: [id number] INP/OBS CARE(HIGH) MARY HAGAN RESIDENT Jan 29, 2025 08:41 JOSHUA CHILD MD Feb 02, 2025 21:55
[2025-01-29] MEDS ORDERED: VANCOMYCIN PER PHARMACY 0 MG IV SCH (09:30)
[2025-01-29] MEDS: LACTATED RINGER'S 1,000 ML IV ONE (09:30)
[2025-01-29] MEDS: ENOXAPARIN SOD 40 MG/0.4 ML SYRINGE SC SCH (10:00)
[2025-01-29] MEDS ORDERED: CEFEPIME 1GM/ 50ML 50 ML IV SCH ×2 (10:00→14:00)
[2025-01-29] MEDS: ATORVASTATIN 20 MG TAB PO SCH (11:27)
[2025-01-29] MEDS ORDERED: ACETAMINOPHEN 325 MG TAB PO SCH (12:00)
[2025-01-29 12:48] LABS: Urine Protein, UAD Negative (Negative)
[2025-01-29] MEDS ORDERED: VANCOMYCIN 750MG KIT 100 ML IV SCH (14:00)
--- NOTE | 2025-01-29 15:31 | DVH ---
CLINICAL INDICATION: rheumatoid arthritis TECHNIQUE: 3 radiographic views of the left hand were obtained. Comparison: None FINDINGS/IMPRESSION: There is no evidence of acute fracture or dislocation. Flexion deformities at the 1st through 5th proximal interphalangeal joint significantly limits evalua tion of 1st through 5th proximal phalanges, middle phalanges and distal phalanges. Diffuse osteopeni aHardy
--- NOTE | 2025-01-29 15:31 | DVH ---
EXAM: XY R KNEE 2V XRAY, XY L KNEE 2V XRAY CLINICAL INDICATION: Knee pain with known rheumatoid vs psoriatic arthritis TECHNIQUE: XY R KNEE 2V XRAY, XY L KNEE 2V XRAY Comparison: None FINDINGS/IMPRESSION: There is no evidence of acute fracture or dislocation. Severe bilateral tricompartmental joint space narrowing The alignment is anatomical. There is no radiopaque foreign body.
--- NOTE | 2025-01-29 15:32 | DVH ---
CLINICAL INDICATION: Pain; RA TECHNIQUE: 3 radiographic views of the right hand were obtained. Comparison: None FINDINGS/IMPRESSION: Subluxation deformities and flexion deformity of the 1st through 5th proximal interphalangeal joint a nd distal interphalangeal joints significantly limits evaluation of osseous detail. Diffuse osteopen ia. No obvious fracture within limitations of the exam.
[2025-01-29 17:50] VITALS: PULSE 77; RESP 17; O2SAT 97
[2025-01-29] MEDS: KETOROLAC TROMETH 30 MG/ML 1ML VIAL IV ONE (17:55)
[2025-01-29 23:23] VITALS: BP 168/77; PULSE 72; RESP 17; TEMP 97.7; O2SAT 98
[2025-01-29 23:36] VITALS: BP 168/77; PULSE 72; RESP 17; TEMP 97.7; O2SAT 98
[2025-01-29 23:51] LABS: Cannabinoid Screen, Urine Pos (NEGATIVE)
[2025-01-29 23:53] LABS: Amphetamine Screen, Urine Neg (NEGATIVE); Barbiturate Scree,Urine Neg (NEGATIVE); Benzodiazephine Screen, Urine Neg (NEGATIVE); Cocaine Screen, Urine Neg (NEGATIVE); Opiate Scree,Urine Neg (NEGATIVE); Phencyclidine Screen, Urine Neg (NEGATIVE)
[2025-01-30] VITALS (9 sets, daily range): BP systolic 111–176; BP diastolic 60–90; PULSE 64–82; RESP 16–20; TEMP 97.6–98.7; O2SAT 94–99
[2025-01-30] MEDS: PANTOPRAZOLE 40 MG TAB PO SCH (05:48)
[2025-01-30 06:58] LABS: Hematocrit 32.3 % (36.0-46.0); Hemoglobin 10.7 g/dL (12.2-16.2); Mean Corpuscular Hemoglobin 29.5 pg (28.0-32.0); Mean Corpuscular Volume 88.8 fL (80.0-100.0); Nucleated Red Blood Cells % 0.1 %
[2025-01-30] MEDS: cefTRIAXone 1GM/50ML D5W 50 ML IV SCH (14:35)
[2025-01-30] MEDS: KETOROLAC TROMETH 30 MG/ML 1ML VIAL IV PRN (15:50)
[2025-01-30] MEDS ORDERED: ACETAMINOPHEN 325 MG TAB PO SCH (16:30)
--- NOTE | 2025-01-30 18:43 | DVHPNRES ---
Progress Note Date Seen: Jan 30, 2025 Resident Creating Document: MARY HAGAN RESIDENT Medical Necessity Reason Pt with a Central, PICC or Fol: Yes The following are medically ne: Green Catheter Subjective Review of Systems Mario Fisher is a 69-year-old female with past medical history of CAD, RA, fibromyalgia, hypertension (2 stens in 11/2023), presented to the ER with chief complaint of 1 day of chest pain, pressure-like, substernal, no radiation, the chest pain started while she was sitting smoking. She reported that the pain lasted for 20 minutes and improved with NTG, given by EMS. Associated with SOB and dizziness. The patient is wheelchair bound for the last 15 years after a fall. She denies palpitations, nausea, vomit, headache or other symptoms. PMHx: CAD, RA, fibromyalgia, HFpEF, hypertension PSHx: Hysterectomy, 3 section, 2 stent placement Social history: Smoking since age of 9, 2-3 packs per week, no use of alcohol, recreational drugs. Lives in house with niece, daughter Home medication: lisinopril, amlodipine, atorvastatin, duloxetine, oxycodone, gabapentin, naloxone, NTG, tramadol, isosorbide mononitrate, metoprolol succinate, pantoprazole, sucralfate, iron ROS: Constitutional: Denies weight loss, fever and chills. HEENT: Denies changes in vision and hearing. Respiratory: Denies shortness of breath and cough Cardiovascular: Denies chest discomfort or palpitations GI: Denies abdominal pain, nausea, vomiting and diarrhea. : Denies dysuria and urinary frequency. Musculoskeletal: Denies myalgias and joint pain Skin: Denies rash and pruritus. Neurological: Denies dizziness, headache, vision or hearing problems She was examined at bedside today. Vitals show low blood pressure. She does not have any residual chest pain, complains of excruciating pain in bilateral lower limbs. Also complain of pain in lower back. We will continue monitoring and managing Objective vital signs Vital Sign Date Time Temp Pulse Resp B/P (MAP) Pulse Ox O2 Delivery O2 Flow Rate FiO2 01/30/25 17:00 97.6 72 20 122/75 (91) 98 97.6 01/30/25 07:45 Room Air* 0 21 Total Intake and Output 801/29/25 01/30/25 15:00 23:00 07:00 Intake Total 600 ml Output Total 1200 ml Balance -600 ml medications Current Medications Medications Dose Ordered Sig/Bebo Route Start Time Stop Time Status Last Admin Dose Admin Enoxaparin Sodium 40 mg DAILY SC 01/29/25 10:00 Atorvastatin Calcium 80 mg DAILY PO 01/29/25 10:00 01/29/25 11:27 80 MG Pantoprazole Sodium 40 mg DAILY@0600 PO 01/30/25 06:00 01/30/25 05:48 40 MG Ceftriaxone Sodium 50 ml @ 100 mls/hr DAILY@09 IV 01/30/25 12:15 01/30/25 14:35 100 MLS/HR Ketorolac Tromethamine 15 mg Q6HPRN PRN IV 01/30/25 15:00 02/04/25 14:59 01/30/25 15:50 15 MG Pregabalin 50 mg BID PO 01/30/25 22:00 Acetaminophen 650 mg Q6HP PO 01/30/25 16:30 Hold Examination General: Patient alert and oriented in person, place and time. Patient following commands. HEENT: Normocephalic, atraumatic, moist mucous membranes Respiratory/pulmonary: Clear lungs bilaterally, vesicular murmurs present in almost all lung kaplan, no associated crackles or wheezes. Cardiovascular: Normal heart sounds S1 and S2 with no associated murmurs Abdomen: Abdomen nondistended, there is no pain to palpation in any of the abdominal quadrants, no palpable masses. Extremities: Scaly, erythematous plaques on bilateral lower extremities [id number]. [place] neck deformity in multiple fingers of both hands. Peripheral Pulses: 3+ Radial (R). 3+ Radial (L). 3+ Dorsalis pedis (R). 3+ Dorsalis pedis(L) Skin: No rashes or pruritus, there is no sacral edema present at this time. Neurological: Intact cranial nerves with no focal neurologic deficits laboratory and microbiology Laboratory Tests 01/30/25 05:43 01/29/25 04:35 Test 01/29/25 04:35 Range/Units Serum Glucose 100 74-106 mg/dL Microbiology Date/Time Source Procedure Growth Status 01/29/25 13:38 Blood Blood Culture - Preliminary NO GROWTH AFTER 24 HOURS OF INCUBATION. Resulted 8/11/25 03:50 Voided Urine Urine Culture - Preliminary Resulted Problem List/Assessment/Plan Problem List/Assessment/Plan Acute Chest Pain, R/O ACS Monitor for life-threatening arrhythmias EKG: Multiple ventricular premature complexes, Minimal ST depression, lateral leads Troponins WNL BNP WNL CXR no acute abnormality Started on telemetry Managed with NTG, Aspirin, Atorvastatin 80mg po qd Sepsis due to Complicated UTI History of recurrent UTI Vitals show hypotension, tachycardia Labs showed leukopenia Blood culture, ordered urine culture- Gram-negative rods IV fluids given Discontinued IV vancomycin and cefepime, started IV ceftriaxone daily Normocytic normochromic anemia, unspecified Essential Hypertension Hypotensive, Continue to monitor and manage REY due to VMN Elevated BUN, creatinine, BUN/Cr Fibromyalgia Psoriasis Rheumatoid arthritis History of depression Smoking Counselling about quitting DIET: Cardiac diet DVT PROPHYLAXIS: Lovenox CODE STATUS: Goals of care discussed with patient at bedside for more than 35 minutes. Full code DISPOSITION: Med/surge Patient's status and plan discussed with the patient. Case discussed with Dr. Child. Plan discussed with: Patient My Orders My Orders Orders - MARY HAGAN RESIDENT Procedure Category Date Status Time Ceftriaxone 1gm/50ml PHA 01/30/25 In Process D5w (Rocephin) 12:15 Date of Service: Jan 30, 2025 Billing Provider: JOSHUA CHILD MD Common Visit Codes: [id number] INP/OBS CARE(HIGH) MARY HAGAN RESIDENT Jan 30, 2025 18:43 JOSHUA CHILD MD Feb 02, 2025 22:25
[2025-01-30] MEDS: PREGABALIN 25 MG CAP PO SCH (21:27)
[2025-01-31] VITALS (8 sets, daily range): BP systolic 113–167; BP diastolic 66–109; PULSE 59–86; RESP 16–18; TEMP 97.2–98.6; O2SAT 96–99
[2025-01-31 06:36] LABS: Hematocrit 31.5 % (36.0-46.0); Hemoglobin 10.6 g/dL (12.2-16.2); Mean Corpuscular Hemoglobin 29.7 pg (28.0-32.0); Mean Corpuscular Volume 88.1 fL (80.0-100.0); Nucleated Red Blood Cells % 0.1 %
[2025-01-31] MEDS: LISINOPRIL 20 MG TAB PO SCH (08:41)
[2025-01-31] MEDS: HYDROcodone-ACET 5/325MG TAB PO PRN (12:15)
--- NOTE | 2025-01-31 16:51 | DVHPNRES ---
Progress Note Date Seen: Jan 31, 2025 Resident Creating Document: MARY HAGAN RESIDENT Medical Necessity Reason Pt with a Central, PICC or Fol: Yes The following are medically ne: Green Catheter Subjective Review of Systems Mario Fisher is a 69-year-old female with past medical history of CAD, RA, fibromyalgia, hypertension (2 stens in 11/2023), presented to the ER with chief complaint of 1 day of chest pain, pressure-like, substernal, no radiation, the chest pain started while she was sitting smoking. She reported that the pain lasted for 20 minutes and improved with NTG, given by EMS. Associated with SOB and dizziness. The patient is wheelchair bound for the last 15 years after a fall. She denies palpitations, nausea, vomit, headache or other symptoms. PMHx: CAD, RA, fibromyalgia, HFpEF, hypertension PSHx: Hysterectomy, 3 section, 2 stent placement Social history: Smoking since age of 9, 2-3 packs per week, no use of alcohol, recreational drugs. Lives in house with niece, daughter Home medication: lisinopril, amlodipine, atorvastatin, duloxetine, oxycodone, gabapentin, naloxone, NTG, tramadol, isosorbide mononitrate, metoprolol succinate, pantoprazole, sucralfate, iron ROS: Constitutional: Denies weight loss, fever and chills. HEENT: Denies changes in vision and hearing. Respiratory: Denies shortness of breath and cough Cardiovascular: Denies chest discomfort or palpitations GI: Denies abdominal pain, nausea, vomiting and diarrhea. : Denies dysuria and urinary frequency. Musculoskeletal: Denies myalgias and joint pain Skin: Denies rash and pruritus. Neurological: Denies dizziness, headache, vision or hearing problems She was examined at bedside today. Vitals show hypertensive urgency. Complains of excruciating pain in bilateral lower limbs. Also complain of pain in lower back. We will continue monitoring and managing Objective vital signs Vital Sign Date Time Temp Pulse Resp B/P (MAP) Pulse Ox O2 Delivery O2 Flow Rate FiO2 01/31/25 16:35 125/55 01/31/25 16:32 98.0 73 18 96 98.0 01/31/25 07:39 Room Air* 0 21 Total Intake and Output 01/30/25 01/30/25 01/31/25 15:00 23:00 07:00 Intake Total 360 ml 450 ml Output Total 500 ml 250 ml Balance -140 ml 200 ml medications Current Medications Medications Dose Ordered Sig/Bebo Route Start Time Stop Time Status Last Admin Dose Admin Enoxaparin Sodium 40 mg DAILY SC 01/29/25 10:00 Atorvastatin Calcium 80 mg DAILY PO 01/29/25 10:00 01/29/25 11:27 80 MG Pantoprazole Sodium 40 mg DAILY@0600 PO 01/30/25 06:00 01/31/25 05:51 40 MG Ceftriaxone Sodium 50 ml @ 100 mls/hr DAILY@09 IV 01/30/25 12:15 01/31/25 08:39 100 MLS/HR Ketorolac Tromethamine 15 mg Q6HPRN PRN IV 01/30/25 15:00 02/04/25 14:59 01/31/25 08:40 15 MG Pregabalin 50 mg BID PO 01/30/25 22:00 01/31/25 08:40 50 MG Acetaminophen 650 mg Q6HP PO 01/30/25 16:30 Hold Lisinopril 20 mg DAILY PO 01/31/25 06:45 01/31/25 14:02 20 MG Acetaminophen/ Hydrocodone Bitart 1 tab Q6HPRN PRN PO 01/31/25 10:45 01/31/25 12:15 1 TAB Amlodipine Besylate 5 mg DAILY PO 02/01/25 10:00 Examination General: Patient alert and oriented in person, place and time. Patient following commands. HEENT: Normocephalic, atraumatic, moist mucous membranes Respiratory/pulmonary: Clear lungs bilaterally, vesicular murmurs present in almost all lung kaplan, no associated crackles or wheezes. Cardiovascular: Normal heart sounds S1 and S2 with no associated murmurs Abdomen: Abdomen nondistended, there is no pain to palpation in any of the abdominal quadrants, no palpable masses. Extremities: Scaly, erythematous plaques on bilateral lower extremities [id number]. [place] neck deformity in multiple fingers of both hands. Peripheral Pulses: 3+ Radial (R). 3+ Radial (L). 3+ Dorsalis pedis (R). 3+ Dorsalis pedis(L) Skin: No rashes or pruritus, there is no sacral edema present at this time. Neurological: Intact cranial nerves with no focal neurologic deficits laboratory and microbiology Laboratory Tests 01/31/25 05:38 01/29/25 04:35 Test 01/29/25 04:35 Range/Units Serum Glucose 100 74-106 mg/dL Microbiology Date/Time Source Procedure Growth Status 01/29/25 13:38 Blood Blood Culture - Preliminary NO GROWTH AFTER 48 HOURS OF INCUBATION. Resulted 01/29/25 03:50 Voided Urine Urine Culture - Final Klebsiella pneumoniae Complete Problem List/Assessment/Plan Problem List/Assessment/Plan Acute Chest Pain, R/O ACS Monitor for life-threatening arrhythmias EKG: Multiple ventricular premature complexes, Minimal ST depression, lateral leads Troponins WNL BNP WNL CXR no acute abnormality off telemetry now Managed with NTG, Aspirin, Atorvastatin 80mg po qd Sepsis due to Complicated UTI History of recurrent UTI Vitals show hypotension, tachycardia Labs showed leukopenia Blood culture negative urine culture- Gram-negative rods, final culture pending IV fluids given Discontinued IV vancomycin and cefepime, started IV ceftriaxone daily Normocytic normochromic anemia, unspecified Essential Hypertension Hypertensive urgency Continue to monitor and manage REY due to VMN Elevated BUN, creatinine, BUN/Cr Fibromyalgia Psoriasis Rheumatoid arthritis History of depression Smoking Counselling about quitting DIET: Cardiac diet DVT PROPHYLAXIS: Lovenox CODE STATUS: Goals of care discussed with patient at bedside for more than 25 minutes. Full code DISPOSITION: Med/surge Patient's status and plan discussed with the patient. Case discussed with Dr. Child. Plan discussed with: Patient My Orders My Orders Orders - MARY HAGAN RESIDENT Procedure Category Date Status Time Discontinue Tele ALEXANDRA 01/30/25 In Process 19:43 Communication Order ORDERS 01/30/25 Transmitted 19:43 Transfer Orders XFER 01/30/25 Transmitted 19:43 Lisinopril Tablet PHA 01/31/25 In Process (Zestril Tablet) 06:45 Hydrocodone-Acet PHA 01/31/25 In Process 5/325mg Tab ([place] 10:45 Date of Service: Jan 31, 2025 Billing Provider: JOSHUA CHILD MD Common Visit Codes: [id number] INP/OBS CARE(HIGH) MARY HAGAN RESIDENT Jan 31, 2025 16:51 JOSHUA CHILD MD Feb 02, 2025 22:51
--- NOTE | 2025-01-31 19:49 | DVH ---
Exam: XY KUB ABDOMEN SINGLE VIEW Indication: Constipation Comparison: None Technique: 1 radiographic views of the abdomen. Findings: Nonobstructive bowel gas pattern noted. Large volume colonic stool. There is no definite evidence for pneumoperitoneum. No abnormal calcifications noted. Impression: Large volume colonic stool.
[2025-01-31] MEDS: METHOTREXATE 2.5 MG TAB PO SCH (22:04)
[2025-02-01] VITALS (7 sets, daily range): BP systolic 128–150; BP diastolic 64–70; PULSE 60–82; RESP 17–19; TEMP 36.8; O2SAT 95–97
[2025-02-01] MEDS ORDERED: HYDR-4902 PO (10:23)
[2025-02-01 12:25] LABS: Triglycerides 103 mg/dL (< 150)
[2025-02-01 12:27] LABS: Cholesterol 140 mg/dL (< 200); HDL Cholesterol 49 mg/dL (40-59)
[2025-02-01] MEDS ORDERED: AML5T PO (13:02)
[2025-02-01] MEDS ORDERED: CHOL200010 PO (13:02)
[2025-02-01] MEDS ORDERED: METH2.5T62 PO (13:02)
[2025-02-01] MEDS ORDERED: LACT10SO3 PO (13:02)
--- NOTE | 2025-02-01 15:22 | DVHDSRES ---
Discharge Summary Date of Admission Resident Creating Document: MARY HAGAN RESIDENT Jan 29, 2025 at 04:08 Date of Discharge: Feb 01, 2025 Labs/Diagnostic Data: Laboratory Results Test 02/01/25 11:58 01/31/25 22:39 01/31/25 05:38 01/30/25 16:46 Hemoglobin A1c 5.3 % A1C (<5.7) Triglycerides Level 103 mg/dL (< 150) Cholesterol Level 140 mg/dL (< 200) LDL Cholesterol 81 mg/dL (< 100) HDL Cholesterol 49 mg/dL (40-59) C-Reactive Protein High Sensitivity 0.15 mg/dL (<1.0) White Blood Count 5.0 10^3/uL (4.4-10.8) Red Blood Count 3.58 10^6/uL (4.0-5.20) Hemoglobin 10.6 g/dL (12.2-16.2) Hematocrit 31.5 % (36.0-46.0) Mean Corpuscular Volume 88.1 fL (80.0-100.0) Mean Corpuscular Hemoglobin 29.7 pg (28.0-32.0) Mean Corpuscular Hemoglobin Concent 33.7 g/dL (32.0-36.0) Red Cell Distribution Width 17.5 % (11.8-14.3) Platelet Count 269 10^3/uL (140-450) Mean Platelet Volume 9.3 fL (6.9-10.8) Neutrophils (%) (Auto) 62.3 % (37.0-80.0) Lymphocytes (%) (Auto) 19.6 % (10.0-50.0) Monocytes (%) (Auto) 7.2 % (0.0-12.0) Eosinophils (%) (Auto) 9.9 % (0.0-7.0) Basophils (%) (Auto) 1.0 % (0.0-2.0) Neutrophils # (Auto) 3.1 10 ^3/uL (1.6-8.6) Lymphocytes # (Auto) 1.0 10 ^3/uL (0.4-5.4) Monocytes # (Auto) 0.4 10 ^3/uL (0-1.3) Eosinophils # (Auto) 0.5 10 ^3/uL (0-0.8) Basophils # (Auto) 0.1 10 ^3/uL (0-0.2) Nucleated Red Blood Cells 0.1 % Erythrocyte Sedimentation Rate 20 mm/hr (0-20) Vitamin D 25-Hydroxy 29.0 ng/mL (30.0-100) Test 01/29/25 13:53 01/29/25 04:35 01/29/25 03:50 01/28/25 16:31 Lactic Acid Level 1.3 mmol/L (0.4-2.0) Sodium Level 140 mmol/L (136-145) Potassium Level 3.6 mmol/L (3.5-5.1) Chloride Level 109 mmol/L (98-107) Carbon Dioxide Level 23 mmol/L (20-31) Anion Gap 8 (5-15) Blood Urea Nitrogen 28 mg/dL (9-23) Creatinine 0.83 mg/dL (0.550-1.02) Glomerular Filtration Rate Calc 76 mL/min (>90) BUN/Creatinine Ratio 33.7 (10.0-20.0) Serum Glucose 100 mg/dL (74-106) Calcium Level 9.2 mg/dL (8.7-10.4) B-Type Natriuretic Peptide 65.04 pg/mL (0-100) Thyroid Stimulating Hormone (TSH) 2.27 uIU/mL (0.55-4.78) Urine Color Light-yellow (Yellow) Urine Clarity Clear (Clear) Urine pH 5.5 (5.0-9.0) Urine Specific [place] 1.014 (1.001-1.035) Urine Protein Negative (Negative) Urine Ketones Negative (Negative) Urine Blood Negative /uL (Negative) Urine Nitrite 2+ (Negative) Urine Bilirubin Negative (Negative) Urine Urobilinogen Normal mg/dL (Negative) Urine Leukocyte Esterase 2+ /uL (Negative) Urine RBC 3 /hpf (0 - 4) Urine Microscopic WBC 12 /HPF (0-5) Urine Squamous Epithelial Cells Few /hpf (<5) Urine Bacteria Mod /hpf (None Seen) Urine Mucus Few (None Seen) Urine Glucose Normal mg/dL (Normal) Urine Opiates Screen Neg (NEGATIVE) Urine Fentanyl Screen Neg (NEGATIVE) Urine Barbiturates Screen Neg (NEGATIVE) Urine Phencyclidine Screen Neg (NEGATIVE) Urine Amphetamines Screen Neg (NEGATIVE) Urine Benzodiazepines Screen Neg (NEGATIVE) Urine Cocaine Screen Neg (NEGATIVE) Urine Cannabinoids Screen Pos (NEGATIVE) Troponin I High Sensitivity 11 ng/L (</=34) Other Laboratory Tests 01/31/25 05:38 01/29/25 04:35 Brief Hx & Hospital Course: Brief History: Philippe Fisher is a 69-year-old female with past medical history of CAD, RA, fibromyalgia, hypertension (2 stens in 11/2023), presented to the ER with chief complaint of 1 day of chest pain, pressure-like, substernal, no radiation, the chest pain started while she was sitting smoking. She reported that the pain lasted for 20 minutes and improved with NTG, given by EMS. Associated with SOB and dizziness. The patient is wheelchair bound for the last 15 years after a fall. She denies palpitations, nausea, vomit, headache or other symptoms. Hospital course: She was admitted along the lines of acute chest pain, to rule out ACS and monitor for lifethreatening arrhythmias. Inital labs show normal troponin, BNP. EKG revealed multiple ventricular premature complexes with minimal ST depression lateral leads. Pain management, IV fluids and monitoring on telemetry started. Vitals OA showed tachycardia & hypotenson, UA positive for UTI, started on IV ceftriaxone, IV fluid bolus given. Discharge diagnosis: Chest Pain, Ruled out ACS Non cardiac chest pain, possible Monitor for life-threatening arrhythmias Sepsis due to Complicated UTI History of recurrent UTI Hypotension, tachycardia, Leukopenia OA Normocytic normochromic anemia, unspecified Essential Hypertension Hypertensive urgency, resolved REY due to VMN Fibromyalgia Psoriasis Rheumatoid arthritis History of depression Smoking Discharge plan: Continue methotrexate, lactulose, norco as prescribed Continue Vitamin D supplementation Continue home medications Continue Keflex antibiotic course at home Follow up with discharge clinic in two weeks Operations or Procedures XY KUB ABDOMEN SINGLE VIEW Indication: Constipation Comparison: None Technique: 1 radiographic views of the abdomen. Findings: Nonobstructive bowel gas pattern noted. Large volume colonic stool. There is no definite evidence for pneumoperitoneum. No abnormal calcifications noted. Impression: Large volume colonic stool. -- XY R KNEE 2V XRAY, XY L KNEE 2V XRAY CLINICAL INDICATION: Knee pain with known rheumatoid vs psoriatic arthritis TECHNIQUE: XY R KNEE 2V XRAY, XY L KNEE 2V XRAY Comparison: None FINDINGS/IMPRESSION: There is no evidence of acute fracture or dislocation. Severe bilateral tricompartmental joint space narrowing The alignment is anatomical. There is no radiopaque foreign body. --- XY R KNEE 2V XRAY, XY L KNEE 2V XRAY CLINICAL INDICATION: Knee pain with known rheumatoid vs psoriatic arthritis TECHNIQUE: XY R KNEE 2V XRAY, XY L KNEE 2V XRAY Comparison: None FINDINGS/IMPRESSION: There is no evidence of acute fracture or dislocation. Severe bilateral tricompartmental joint space narrowing The alignment is anatomical. There is no radiopaque foreign body -- 3 radiographic views of the right hand were obtained. Comparison: None FINDINGS/IMPRESSION: Subluxation deformities and flexion deformity of the 1st through 5th proximal interphalangeal joint and distal interphalangeal joints significantly limits evaluation of osseous detail. Diffuse osteopenia. No obvious fracture within limitations of the exam. --- radiographic views of the left hand were obtained. Comparison: None FINDINGS/IMPRESSION: There is no evidence of acute fracture or dislocation. Flexion deformities at the 1st through 5th proximal interphalangeal joint significantly limits evaluation of 1st through 5th proximal phalanges, middle phalanges and distal phalanges. Diffuse osteopenia. -- Single frontal view of the chest was obtained Comparison: XY CHEST PORTABLE on DOS: 09/30/24, XY CHEST PORTABLE on DOS: 08/07/24 FINDINGS: Lines and Tubes: None Lungs: No focal consolidation. Questionable artifact in the left costophrenic angle Pleura: No effusion. No pneumothorax. Cardiomediastinal contours: Unremarkable Bones: No acute osseous abnormality. IMPRESSION: 1. No acute cardiopulmonary disease. Condition at Discharge: Stable Final Diagnosis/Problems List Chest Pain, Ruled out ACS Non cardiac chest pain, possible Monitor for life-threatening arrhythmias Sepsis due to Complicated UTI History of recurrent UTI Hypotension, tachycardia, Leukopenia OA Normocytic normochromic anemia, unspecified Essential Hypertension Hypertensive urgency, resolved REY due to VMN Fibromyalgia Psoriasis Rheumatoid arthritis History of depression Smoking Discharge Disposition: Home Discharge Instruct/Medications Diet: Cardiac 2g Na,low cholest Activity: No Restrictions, As Tolerated Follow Up/Referral: Please establish care with Dr. Cantu as PCP within 2 weeks Wednesday AM Please follow up with PCP to further discuss pain management Medications: as per EHR please waste picker medications and continue New Medications: Cholecalciferol (Vitamin D) 2,000 Unit Cap 2000 UNIT PO DAILY for 30 Days, CAP Hydrocodone-Acetaminophen (Hydrocodone Bitartrate/AC 5-325 mg) 1 Tab Tab 1 TAB PO Q8HPRN PRN for 14 Days, #42 TAB Lactulose (Lactulose) 10 Gm/15 Ml Marguerite 10 GM PO DAILY for 30 Days, ML Amlodipine Besylate (Norvasc Tablet) 5 Mg Tb 5 MG PO DAILY for 30 Days, #30 TAB Methotrexate (Methotrexate Sodium) 2.5 Mg Tab 5 MG PO Q7D for 30 Days, TAB Continued Medications: Ferrous Sulfate (Iron) 325 Mg Tab 325 MG PO BID, #180 TAB Gabapentin (Gabapentin) 300 Mg Cap 1 CAP PO TID, #90 CAP 5 Refills Hydrocodone-Acetaminophen ([place] 5/325MG) 1 Tab Tb 1 TAB PO Q6HR, #60 TAB Hydrocodone-Acetaminophen (Hydrocodone Bitartrate/AC 5-325 mg) 1 Tab Tab 1 TAB PO Q4HP PRN, #30 TAB Hydrocortisone (Rectal) (Procto-Med Hc) 2.5 % Cre 2.5 % MO Q6HPRN PRN, #28 GRAMS 5 Refills Hydrocortone (Hydrocortisone 2.5%) 1 Applic Ap 1 APPLIC TOP BIDP, #30 GRAMS Isosorbide Mononitrate (Isosorbide Mononitrate Er) 30 Mg Tab 1 TAB PO DAILY, #30 TAB 5 Refills Lisinopril (Lisinopril) 20 Mg Tab 1 TAB PO DAILY, #30 TAB 5 Refills Metoprolol Succinate (Toprol Xl) 25 Mg Tab 1 TAB PO DAILY, #30 TAB 5 Refills Nitroglycerin (Nitrostat) 0.4 Mg Sub 0.4 MG SL Pantoprazole Sodium Sesquihydr (Pantoprazole Sodium) 40 Mg Tab 40 MG PO BID, #60 TAB Sucralfate (Carafate) 1 Gm Tab 1 GM PO QID, #120 TAB Tramadol HCl (Tramadol HCl) 50 Mg Tab 50 MG PO QID PRN, #30 TAB Tramadol Hcl (Tramadol Hcl) 50 Mg Tab 50 MG PO Q8HP PRN, #20 TAB Tramadol HCl (Tramadol HCl) 50 Mg Tab 50 MG PO BID for 7 Days, #14 TAB Tramadol Hcl (Tramadol Hcl) 50 Mg Tab 50 MG PO Q6HPRN, #10 TAB 0 Refills Vitamin B12 (Vitamin B-12) 1,000 Mcg/1 Ml Ij 1 TAB PO DAILY Discontinued Medications: Amlodipine Besylate (Norvasc Tablet) 5 Mg Tb 10 MG PO DAILY, #30 Scheduled Amlodipine Besylate (Norvasc Tablet), 5 MG PO DAILY Cephalexin Monohydrate (Cephalexin), 500 MG PO BID Cholecalciferol (Vitamin D), 2,000 UNIT PO DAILY Ferrous Sulfate (Iron), 325 MG PO BID Gabapentin (Gabapentin), 1 CAP PO TID Hydrocodone-Acetaminophen ([place] 5/325MG), 1 TAB PO Q6HR, (Reported) Hydrocortone (Hydrocortisone 2.5%), 1 APPLIC TOP BIDP Isosorbide Mononitrate (Isosorbide Mononitrate Er), 1 TAB PO DAILY Lactulose (Lactulose), 10 GM PO DAILY Lisinopril (Lisinopril), 1 TAB PO DAILY Methotrexate (Methotrexate Sodium), 5 MG PO Q7D Metoprolol Succinate (Toprol Xl), 1 TAB PO DAILY Pantoprazole Sodium Sesquihydr (Pantoprazole Sodium), 40 MG PO BID Sucralfate (Carafate), 1 GM PO QID Tramadol HCl (Tramadol HCl), 50 MG PO BID Tramadol Hcl (Tramadol Hcl), 50 MG PO Q6HPRN Vitamin B12 (Vitamin B-12), 1 TAB PO DAILY, (Reported) Scheduled PRN Hydrocodone-Acetaminophen (Hydrocodone Bitartrate/AC 5-325 mg), 1 TAB PO Q4HP PRN Hydrocodone-Acetaminophen (Hydrocodone Bitartrate/AC 5-325 mg), 1 TAB PO Q8HPRN PRN Hydrocortisone (Rectal) (Procto-Med Hc), 2.5 % MO Q6HPRN PRN Tramadol HCl (Tramadol HCl), 50 MG PO QID PRN Tramadol Hcl (Tramadol Hcl), 50 MG PO Q8HP PRN Miscellaneous Medications Nitroglycerin (Nitrostat), 0.4 MG SL, (Reported) Discontinued Medications Amlodipine Besylate (Norvasc Tablet), 10 MG PO DAILY Discharge Statement: "Patient was advised to return to the ER or call 911 if any headaches, dizziness, shortness of breath, chest pain, abdominal pain, bleeding, fevers, or worsening of medical condition. Patient was counseled about treatment plan, medications, possible side effects, patientverbalized understanding. All questions were answered to the best of my ability. This discharge took greater then 30 minutes in planning, reviewing documentation, counseling the patient, and discussing with other team members." ASSESSMENT ASSESSMENT Assessment Date of Service: Feb 01, 2025 Billing Provider: JOSHUA CANTU MD Common Visit Codes: [id number] DISCH DAY >30min MARY HAGAN Feb 01, 2025 15:22 JOSHUA CANTU MD Feb 02, 2025 23:11
[2025-02-01] MEDS ORDERED: CEPH500T PO (16:56)
[2025-02-02 11:07] LABS: Anti-Nuclear Antibody Direct Negative (Negative)
== END 2025-02-01 23:25 | disposition home or self-care (01) | DRG 871 ==
LOC: EDUNIT# 15:13 → ER 15:13 → EDBD 15:13 → OVERFLOW 01-29 04:08 → TELE-WESTW 01-29 04:20 → WEST WING 01-31 00:09
PROVIDERS: ADMIT Student in an Organized Health Care Education/Training Program; ATTEND Emergency Medicine
DX: A41.9 Sepsis, unspecified organism (principal); N17.0 Acute kidney failure with tubular necrosis; N39.0 Urinary tract infection, site not specified; I16.0 Hypertensive urgency; I10 Essential (primary) hypertension; D64.9 Anemia, unspecified; M06.8A Other specified rheumatoid arthritis, other specified site; M79.7 Fibromyalgia; L40.9 Psoriasis, unspecified; M19.09 Primary osteoarthritis, other specified site; I25.10 Atherosclerotic heart disease of native coronary artery without angina pectoris; F17.210 Nicotine dependence, cigarettes, uncomplicated; Z90.49 Acquired absence of other specified parts of digestive tract; I25.2 Old myocardial infarction; Z99.3 Dependence on wheelchair; Z95.5 Presence of coronary angioplasty implant and graft; Z90.710 Acquired absence of both cervix and uterus; Z86.73 Personal history of transient ischemic attack (TIA), and cerebral infarction without residual deficits; Z88.2 Allergy status to sulfonamides
CPT/HCPCS: 36415; 71045; 73120; 73560; 74018; 80048; 80061; 80307; 81001; 82306; 83036; 83605; 83880; 84443; 84484; 85025; 85652; 86038; 86141; 86200; 86431; 87040; 87086; 87088; 87186; 93005; 96361; 96374; G0378; J1885